=== PATIENT | male | born 1940 | race Caucasian/White ===

== ENCOUNTER 2018-03-27 21:01 | Emergency (ER) | payer MEDICARE, OTHER ==
--- NOTE | 2018-03-27 21:16 | ED ---
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 Pt states he was clearing weeds and encountered a hornets nest. The patient rates the pain 7/10 in severity. Symptoms aggravated by nothing. Symptoms alleviated by nothing. Patient reports pain to back of hands and nausea. Patient denies dyspnea. Patient denies a history of allergic reactions to bee stings. - History of Current Complaint Chief Complaint: EDAllergicReaction Time Seen by Provider: 03/27/18 21:04 Hx Obtained From: Patient Onset/Duration: Sudden Onset, Started hours ago, Still Present Timing: Constant Severity Initially: Moderate Severity Currently: Moderate Pain Intensity: 7 Pain Scale Used: 0-10 Numeric Location: Discrete @ - Bilateral hands Character: Pain Aggravating Factor(s): Nothing Alleviating Factor(s): Nothing Associated Signs And Symptoms: Positive: Other: - Copy pain to back of hands and nausea. Negative dyspnea - Allergies/Home Medications Allergies/Adverse Reactions: Allergies Allergy/AdvReac Type Severity Reaction Status Date / Time MS Acetaminophen Allergy Nausea Verified 09/23/17 11:50 [From Vicodin] MS Codeine [Codeine] Allergy Nausea Verified 09/23/17 11:50 MS Hydrocodone [From Vicodin] Allergy Nausea Verified 09/23/17 11:50 MS Meperidine Allergy Nausea Verified 09/23/17 11:50 [From Demerol HCl] PMH/Surg Hx/FS Hx/Imm Hx Previously Healthy: No Endocrine/Hematology History: Denies: Hx Diabetes Cardiovascular History: Reports: Hx Coronary Artery Disease, Hx Hypertension - CONTROL WITH MEDS, Hx Rheumatic Fever - A CHILD, Other Cardiovascular Problems/Disorders - CHOLESTEROL CONTROL WITH MEDICATION Denies: Hx Pacemaker/ICD GI History: Reports: Hx Gastroesophageal Reflux Disease - CONTROL WITH MEDS History: Reports: Hx Kidney Stones - HX - PASSED Denies: Hx Renal Disease Musculoskeletal History: Reports: Hx Arthritis, Hx Rheumatoid Arthritis Sensory History: Reports: Hx Contacts or Glasses - GLASSES Denies: Hx Hearing Aid Opthamlomology History: Reports: Hx Contacts or Glasses - GLASSES Neurological History: Reports: Other Neuro Impairments/Disorders - XANAX PRIOR TO PROCEDURES FOR ANXIETY Psychiatric History: Reports: Hx Anxiety Denies: Hx Panic Disorder - Cancer History Cancer Type, 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 1951 BONE AND CYST REMOVAL BILATERAL FEMURS,. 1961 RIGHT HIP REPLACEMENT AND MULTIPLE RIGHT HIPS SURGERIES DUE TO STAPH INFECTION, [place]. 1979 LEFT HIP REPLACEMENT, [place]. 1982, 1986 RIGHT HIP REVISIONS, [place]. 1987 LEFT HIP REVISION, [place]. 2005 MELANOMA REMOVED FROM BACK, X 2, [facility]. 2006 MELANOMA REMOVED FROM LEFT SIDE OF FACE, [facility]. 2011 RIGHT HIP RECONSTRUCTION, [facility]. 2011 LEFT WRIST CARPAL NATHANAEL Hx Anesthesia Reactions: No Infectious Disease History: No Infectious Disease History: Denies: Traveled Outside the [place] in Last 30 Days - Family History Known Family History: Positive: Other - Negative anesthesia reaction - Social History Occupation: Retired Lives: With Family Alcohol Use: Daily Alcohol Amount: 1-2 GLASSES OF WINE DAILY Hx Substance Use: No Substance Use Type: Reports: None Hx Tobacco Use: No Smoking Status (MU): Never Smoked Tobacco Review of Systems Positive: Other - Negative dyspnea Positive: Nausea Positive: Other - Positive pain on the back of bilateral hands All Other Systems Reviewed And Are Negative: Yes Physical Exam - Summary Physical Exam Summary: Appearance: Well-appearing, Well-nourished, lying in bed comfortably Skin: Warm, dry. Erythema on the R forearm consistent with insect stings. Nothing obvious on the L forearm. Eyes: sclera anicteric, no conjunctival pallor ENT: mucous membranes moist, pharynx appears normal Neck: Supple, nontender Respiratory: Clear to auscultation, no signs of respiratory distress Cardiovascular: Normal S1, S2. No murmurs. Normal distal pulses in tibial and radial bilaterally. Abdomen: Soft, nontender, normal active bowel sounds present Musculoskeletal: Normal, Strength/ROM Intact Neurological: A&Ox3, awake and alert, mentation is normal, speech is fluent and appropriate Psychiatric: affect is normal, does not appear anxious or depressed Triage Information Reviewed: Yes Vital Signs On Initial Exam: Initial Vitals Temp Pulse Resp BP Pulse Ox 99.8 F 80 18 160/93 94 03/27/18 21:04 03/27/18 21:04 03/27/18 21:04 03/27/18 21:04 03/27/18 21:04 Vital Signs Reviewed: Yes Diagnostics - Vital Signs Vital Signs Temp Pulse Resp BP Pulse Ox 08/30/18 21:04 99.8 F 80 18 160/93 94 - Laboratory Lab Statement: Any lab studies that have been ordered have been reviewed, and results considered in the medical decision making process. - Additional Comments Diagnostic Additional Comments: An EKG taken at 2144 reveals NSR at 79BPM, P waves, QRS complex, and T waves are within normal limits, T waves and intervals are normal, no ischemic changes. This is a normal EKG Re-Evaluation - Re-Evaluation First Eval Re-Evaluation Time: 22:10 Change: Unchanged Comment: Discussed results and plan of care with pt Second Eval Re-Evaluation Time: 22:14 Change: Unchanged Comment: Patient is still complaining of pain in the right hand, where he apparently was stung the most. He has had topical lidocaine on the hand for about 10 minutes without much change. We'll continue to monitor. He did have a short bout of tachycardia associated with when he describes as a panic attack , but by the time we got a cardiogram his heart rate come back down to normal. The significance of this is unclear. Allergic Reaction Course/Dx - Diagnoses Provider Diagnoses: Bee sting reaction Discharge - Sign-Out/Discharge Documenting (check all that apply): Patient Departure - Discharge Plan Condition: Good Disposition: HOME Patient Education Materials: Insect Bite or Sting (ED) Referrals: Martita Davison MD [Primary Care Provider] - If Needed - Billing Disposition and Condition Condition: GOOD Disposition: Home - Attestation Statements Document Initiated by Scribe: Yes Documenting Scribe: Alondra Crane Provider For Whom Rebel is Documenting (Include Credential): Petros Foreman MD Scribe Attestation: I, Alondra Crane, scribed for Petros Foreman MD on 03/28/18 at 2316. Scribe Documentation Reviewed: Yes Provider Attestation: The documentation as recorded by the agustínibeAlondra accurately reflects the service I personally performed and the decisions made by me, Petros Foreman MD
[2018-03-27] MEDS ORDERED: Lidocaine 4% TOPICAL* 50 ML TOP.SOLN TOPICAL ONE (21:30)
[2018-03-27] MEDS ORDERED: Morphine VIAL* 4 MG/ML VIAL (1 ml vial) IV ONE (22:42)
[2018-03-27] MEDS ORDERED: Morphine VIAL* 10 MG/ML 1 ML VIAL ONE (22:45)
[2018-03-28] MEDS ORDERED: Methadone TAB* 10 MG PO ONE (00:41)
[2018-03-28 02:25] VITALS: BP 168/91
== END 2018-03-28 02:24 | disposition home or self-care (01) ==
LOC: ED 21:01
DX: T63.441A Toxic effect of venom of bees, accidental (unintentional), initial encounter (principal); Y92.9 Unspecified place or not applicable; K21.9 Gastro-esophageal reflux disease without esophagitis; I25.10 Atherosclerotic heart disease of native coronary artery without angina pectoris; I10 Essential (primary) hypertension; Z88.8 Allergy status to other drugs, medicaments and biological substances; Z88.5 Allergy status to narcotic agent; Z88.6 Allergy status to analgesic agent
CPT/HCPCS: 96374; 99283; A9270-GY; J2270

== ENCOUNTER 2019-07-04 11:53 | Inpatient (IN) | payer MEDICARE, BC ==
--- NOTE | 2019-07-04 12:00 | ED ---
HPI Chest Pain - HPI Summary HPI Summary: This patient is an 78 year old male with a Hx of CAD and SC brought in by EMS presenting to [facility] with a chief complaint of chest pain. He states he was watching TV about an hour ago when he started to feel a burning pain. He has experienced this kind of pain before and was usually able to resolve the pain with antacids, however after taking them this time it they did not provide relief. The patient then found old nitroglycerin and took 3 of them, which he states worked to relieve the pain. EMS states he was hypertensive with a systolic > 200, even after taking the nitroglycerin. 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 He states his last SC was 15 year ago and they did not place any stents. He denies SOB. He currently takes medication for hypertension. States pain feels similar to prior SC. - History of Current Complaint Time Seen by Provider: 07/04/19 11:54 Hx Obtained From: Patient Onset/Duration: Started Hours Ago Timing: Lasting Minutes Associated Signs and Symptoms: Positive: Chest Pain - Allergy/Home Medications Allergies/Adverse Reactions: Allergies Allergy/AdvReac Type Severity Reaction Status Date / Time codeine AdvReac Vomiting Verified 07/04/19 11:59 hydrocodone [From Vicodin] AdvReac Vomiting Verified 07/04/19 11:59 meperidine [From Demerol] AdvReac Vomiting Verified 07/04/19 11:59 Home Medications: Home Medications L.acidoph,Paracasei, B.lactis [Probiotic] 1 each PO DAILY 07/04/19 [History Confirmed 07/04/19] Lutein/Zeaxanthin [Ocuvite Lutein 25 25-5 mg] 1 cap PO DAILY 07/04/19 [History Confirmed 07/04/19] Hyannis-3/Dha/Epa/Fish Oil [Fish Oil 1,000 mg Softgel] 1,000 mg PO DAILY 07/04/19 [History Confirmed 07/04/19] PMH/Surg Hx/FS Hx/Imm Hx Endocrine/Hematology History: Denies: Hx Diabetes Cardiovascular History: Reports: Hx Coronary Artery Disease, Hx Hypertension - CONTROL WITH MEDS, Hx Rheumatic Fever - A CHILD, Other Cardiovascular Problems/Disorders - CHOLESTEROL CONTROL WITH MEDICATION Denies: Hx Pacemaker/ICD GI History: Reports: Hx Gastroesophageal Reflux Disease - CONTROL WITH MEDS History: Reports: Hx Kidney Stones - HX - PASSED Denies: Hx Renal Disease Musculoskeletal History: Reports: Hx Arthritis, Hx Rheumatoid Arthritis Sensory History: Reports: Hx Contacts or Glasses - GLASSES Denies: Hx Hearing Aid Opthamlomology History: Reports: Hx Contacts or Glasses - GLASSES Neurological History: Reports: Other Neuro Impairments/Disorders - XANAX PRIOR TO PROCEDURES FOR ANXIETY Psychiatric History: Reports: Hx Anxiety Denies: Hx Panic Disorder - Cancer History Cancer Type, 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 1951 BONE AND CYST REMOVAL BILATERAL FEMURS,. 1961 RIGHT HIP REPLACEMENT AND MULTIPLE RIGHT HIPS SURGERIES DUE TO STAPH INFECTION, [place]. 1979 LEFT HIP REPLACEMENT, [place]. 1982, 1986 RIGHT HIP REVISIONS, [place]. 1987 LEFT HIP REVISION, [place]. 2006 MELANOMA REMOVED FROM BACK, X 2, [facility]. 2006 MELANOMA REMOVED FROM LEFT SIDE OF FACE, [facility]. 2011 RIGHT HIP RECONSTRUCTION, [facility]. 2011 LEFT WRIST CARPAL NATHANAEL Hx Anesthesia Reactions: No - Family History Known Family History: Positive: Other - Negative anesthesia reaction - Social History Alcohol Use: Daily Alcohol Amount: 1-2 GLASSES OF WINE DAILY Hx Substance Use: No Substance Use Type: Reports: None Hx Tobacco Use: No Smoking Status (MU): Never Smoked Tobacco Review of Systems Positive: Chest Pain Negative: Shortness Of Breath All Other Systems Reviewed And Are Negative: Yes Physical Exam - Summary Physical Exam Summary: Constitutional: Well-developed, Well-nourished, Alert. (-) Distressed Skin: Warm, Dry HENT: Normocephalic; Atraumatic Eyes: Conjunctiva normal Neck: Musculoskeletal ROM normal neck. (-) JVD, (-) Stridor, (-) Nuchal rigidity Cardio: Rhythm regular, rate normal, Heart sounds normal; Intact distal pulses; Radial pulses are 2+ and symmetric. (-) Murmur Pulmonary/Chest wall: Effort normal. (-) Respiratory distress, (-) Wheezes, (-) Rales Abd: Soft, (-) tenderness, (-) Distension, (-) Guarding, (-) Rebound Musculoskeletal: (-) Edema Lymph: (-) Cervical adenopathy Neuro: Alert, Oriented x3 Psych: Mood and affect Normal Triage Information Reviewed: Yes Vital Signs On Initial Exam: Temp Pulse Resp BP Pulse Ox 98.5 F 83 16 181/113 96 07/04/19 11:54 07/04/19 11:54 07/04/19 11:54 07/04/19 11:54 07/04/19 11:54 Vital Signs Reviewed: Yes Procedures - Sedation Patient Received Moderate/Deep Sedation with Procedure: No Diagnostics - Laboratory Result Diagrams: 07/04/19 17:00 07/04/19 17:00 Lab Statement: Any lab studies that have been ordered have been reviewed, and results considered in the medical decision making process. - Radiology CXR Radiology Interpretation Completed By: Radiologist Summary of Radiographic Findings: No acute cardiopulmonary process by radiograph. ED Provider has reviewed this report. - EKG 1153 Cardiac Rate: NL - 77 BPM EKG Rhythm: Sinus Rhythm Summary of EKG Findings: T-wave inversions in III and V1. Peaked T-waves in V3. No significant change since 03/27/18. ED Physician has reviewed and interpreted this report. 1323 Cardiac Rate: NL EKG Rhythm: Sinus Rhythm - 72 BPM Summary of EKG Findings: T-wave inversions in III, peaked T-waves in V2, V3. ED Physician has reviewed and interpreted this report. Chest Pain Course/Dx - Course Course Of Treatment: 78 y/o male w hx CAD, SC p/w CP. - PE w well appearing male, VS notable for HTN. - Chest Pain DDX: Given the patient's clinical presentation, highest on differential is ACS - peak T waves in anterior leads, elevated troponin 0.05. Status post aspirin. Pain improved w nitroglycerin. Although less likely, differential also includes the following: --Pneumothorax : Equal breath sounds, story inconsistent since gradual onset of symptoms. CXR shows no evidence of pneumothorax. Unlikely. --Cardiac tamponade: The history and physical are not concerning for tamponade. No Pulsus Paradoxus, no tachypnea. Unlikely. --Mediastinitis or esophageal rupture: The history is not consistent, as the patient has had no recent history of significant wretching, instrumentation, or mediastinal surgeries. Unlikely. --Aortic dissection: The patient does not describe the classical tearing chest pain radiating into the back, and the CXR does not show mediastinal widening or other signs of aortic dissection. Unlikely. --PE: Vitals wnl (not hypoxic, tachycardic or tachypneic) . - Diagnoses Provider Diagnoses: Chest pain Discharge ED - Sign-Out/Discharge Documenting (check all that apply): Patient Departure - Admission, accepted by Dr. Portillo - Discharge Plan Condition: Stable Disposition: ADMITTED TO [facility] - Billing Disposition and Condition Condition: STABLE Disposition: Admitted to [facility] - Attestation Statements Document Initiated by Scribe: Yes Documenting Scribe: Mark Thomas Provider For Whom Rebel is Documenting (Include Credential): Cole Guajardo MD Scribe Attestation: Mark Canchola, scribed for Cole Guajardo MD on 07/04/19 at 2000. Scribe Documentation Reviewed: Yes Provider Attestation: The documentation as recorded by the Mark shaver accurately reflects the service I personally performed and the decisions made by Cole jimenes MD Status of Scribe Document: Viewed
[2019-07-04 12:12] LABS: ABS Basophils 0.1 10^3/ul (0-0.2); ABS Eosinophils 0.2 10^3/ul (0-0.6); ABS Lymphocytes 3.3 10^3/ul (1.0-4.8); ABS Monocytes 1.1 10^3/ul (0-0.8); ABS Neutrophils 5.2 10^3/ul (1.5-7.7); Eosinophil % 2.1 %; Hematocrit 44 % (42-52); Hemoglobin 15.3 g/dL (14.0-18.0); Lymphocyte % 33.5 %; Mean Corpuscular HGB Conc 35 g/dL (31-36); Mean Corpuscular Hemoglobin 30 pg (27-31); Mean Corpuscular Volume 87 fL (80-94); Mean Platelet Volume 8.6 fL (7.4-10.4); Platelet Count 224 10^3/uL (150-450); Red Blood Count 5.11 10^6 /uL (4.18-5.48); Red Cell Distribution Width 15 % (10-15); White Blood Count 9.9 10^3/uL (3.5-10.8)
[2019-07-04 12:27] LABS: ALT 14 U/L (7-52); AST 16 U/L (13-39); Albumin 4.3 g/dL (3.2-5.2); Albumin/Globulin Ratio 1.7 (1-3); Alkaline Phosphatase 139 U/L (34-104); Anion Gap 8 mmol/L (2-11); Blood Urea Nitrogen 24 mg/dL (6-24); CO2 Carbon Dioxide 33 mmol/L (22-32); Chloride 102 mmol/L (101-111); EGFR African American 112.5 (>60); Globulin 2.5 g/dL (2-4); Glucose 103 mg/dL (70-100); Potassium 3.6 mmol/L (3.5-5.0); Sodium 143 mmol/L (135-145); Total Protein 6.8 g/dL (6.4-8.9)
[2019-07-04 12:57] LABS: Troponin I 0.05 ng/mL (<0.03)
[2019-07-04] MEDS ORDERED: Labetalol IV* 5 MG/ML 20 ML VIAL IV PUSH ONE (13:06)
--- OUTSIDE RECORDS SUMMARY | 2019-07-04 13:13 | XMS REPORT | Continuity of Care Document ---
:1940 External Reference #:[id number] Author Name Jeb Rubalcava M.D. Address [address] [place] [address] Care Team Providers Name Role Phone Martita Davison M.D. - Internal Medicine Care Team Information Fitness Management Director [phone] Problems Active Problems Provider Date Essential hypertension Onset: Pure hypercholesterolemia Onset: Anxiety Onset: Ankylosing spondylitis Onset: Nonexudative age-related macular Lalito Arango M.D. Onset: 02/10/2015 degeneration Nuclear senile cataract Lalito Arango M.D. Onset: 02/10/2015 Exudative age-related macular degeneration Kandace Munoz O.D. Onset: 2014 Primary open angle glaucoma of right eye Lalito Arango M.D. Onset: 2017 Age-related exudative macular degeneration Lalito Arango M.D. Onset: 04/22 of right eye Heart failure Jeb Rubalcava M.D. Onset: 12/24/2018 Social History Type Date Description Comments Sex Unknown ETOH Use Consumes 2 glasses of wine per day Tobacco Use Start: Unknown Patient has never smoked Recreational Drug Use Never Used Drugs Smoking Status Reviewed: 06/30/19 Patient has never smoked Allergies, Adverse Reactions, Alerts Active Allergies Reaction Severity Comments Date Demerol 02/10/2015 Codeine 02/10/2015 Vicodin 04/22/2018 Medications Active Medications SIG Qnty Indications Ordering Date Provider Artificial Tears as needed Jeb 03/30/2019 1-0.3% Dacia Rubalcava Solution Methadone HCL Take 1 Tablet By Unknown 10mg Tablets Mouth Twice A Day And Twice A Day as Needed Pantoprazole Sodium Unknown 40mg Tablets DR Urbanoorperazine insert 1 Unknown 25mg suppository Suppository rectally every 12 hours Atenolol take 1/2 tablet Unknown 25mg Tablets daily Procardia Unknown 10mg Capsules Aspirin Adult Low Dose Unknown 81mg Tablets DR Ruff Unknown 10mg Capsules Nitroglycerin ER Unknown 2.5mg Capsules ER Iron Unknown 28mg Tablets Pravastatin Sodium Davison, Martita 40mg M.D. Tablets Buspirone HCL Davison, Martita 7.5mg Tablets M.D. Nifedipine ER Osmotic Davison, Martita Release M.D. 30mg Tablets ER 24HR Alprazolam take 1 tablet by Unknown 0.25mg Tablets mouth three times a day if needed Narcan Unknown 4mg/0.1ML Liquid Clobetasol Propionate Unknown 0.05% Ointment Medications Administered in Office Medication SIG Qnty Indications Ordering Provider Date Unclassified Biologics, I.E. Pako Haddad M.D. 06/18/2011 Avastin Injection Unclassified Biologics, I.EAnders Haddad M.D. 05/18/2011 Avastin Injection Unclassified Biologics, I.EAnders Haddad M.D. 04/18/2011 Avastin Injection Immunizations Description No Information Available Vital Signs Description No Information Available Results Description No Information Available Procedures Date Code Description Status 03/31/2019 78197 Est Patient Intermediate Exam Completed 03/18/2019 60687 Patient No Show For Appt Completed 02/03/2019 90439 Scanning Computerized Opthalmic Diagnostic Posterior Seg Completed Retina 02/03/2019 93152 Est Patient Comprehensive Exam Completed Medical Devices Description No Information Available Encounters Description No Information Available Assessments Date Code Description Provider 06/30/2019 H40.1113 Primary open-angle glaucoma, right eye, Jeb Rubalcava M.D. severe stage 06/30/2019 H35.3212 Exudative age-related macular Jeb Rubalcava M.D. degeneration, right eye, with 03/31/2019 H40.1113 Primary open-angle glaucoma, right eye, Jeb Rubalcava M.D. severe stage 02/03/2019 H40.1113 Primary open-angle glaucoma, right eye, Jeb Rubalcava M.D. severe stage 02/03/2019 H35.3212 Exudative age-related macular Jeb Rubalcava M.D. degeneration, right eye, with 02/03/2019 H25.12 Age-related nuclear cataract, left eye Jeb Rubalcava M.D. Plan of Treatment 06/30/2019 - Jeb Rubalcava M.D.H40.1113 Primary open-angle glaucoma, right eye, severe stageComments:Smoking can increase the risk of developing or worsening any eye related disease, as well as affect your overall health. If you are a smoker, we strongly recommend that you quit.If you are not a smoker, we strongly recommend that you do not start. Your Glaucoma is stable at this time in your right eye. Your eye pressure is within an acceptable range, and your testing does not show any further deterioration at this time. Please continue your treatment as directed and keep follow up appointments.Follow up:3 Month Follow Up IOP CHECK At your next visit, we are not planning to dilate your eyes. However, if you have any changes in your vision or new symptoms, there are certain situations that require us to dilate your eyes. If Dr. Rubalcava requests any additional testing, that may require extra time. If you have any questions before your next appointment, please call our office at .H35.3212 Exudative age-related macular degeneration, right eye, withComments:The wet Macular Degeneration in your right eye appears to be inactive at this time. Continue to monitor your vision, with each eye separately. Use your Amsler Grid and continue taking the AREDS 2 Formula Vitamins. If you notice any changes in your vision before your next appointment , please call the office at to schedule an appointment.Follow up: Functional Status Description No Information Available Mental Status Description No Information Available Referrals Description No Information Available
[2019-07-04] MEDS ORDERED: hydrALAZINE IV* 20 MG/ML VIAL IV SLOW PU ONE (14:29)
[2019-07-04] MEDS ORDERED: Acetaminophen TAB* 325 MG PO PRN (14:48)
[2019-07-04] MEDS ORDERED: Ondansetron INJ* 2 MG/ML VIAL IV PRN (14:48)
[2019-07-04] MEDS ORDERED: Atenolol TAB* 25 MG PO ONE (15:55)
[2019-07-04] MEDS ORDERED: Clobetasol 0.05% OINT* 30 GM TUBE TOPICAL PRN (15:56)
[2019-07-04 16:33] LABS: Troponin I 0.05 ng/mL (<0.03)
[2019-07-04] MEDS: Methadone TAB* 10 MG PO PRN (16:39)
[2019-07-04] MEDS ORDERED: Heparin VIAL(*) 5000 UNITS/ML VIAL (FIVE THOUSAND) IV SCH (17:00)
[2019-07-04 17:07] LABS: ABS Basophils 0.1 10^3/ul (0-0.2); ABS Eosinophils 0.1 10^3/ul (0-0.6); ABS Lymphocytes 1.7 10^3/ul (1.0-4.8); ABS Monocytes 1.1 10^3/ul (0-0.8); Eosinophil % 0.5 %; Hematocrit 44 % (42-52); Lymphocyte % 15.9 %; Mean Corpuscular HGB Conc 34 g/dL (31-36); Mean Corpuscular Hemoglobin 30 pg (27-31); Mean Corpuscular Volume 87 fL (80-94); Mean Platelet Volume 8.3 fL (7.4-10.4); Platelet Count 231 10^3/uL (150-450); Red Blood Count 5.08 10^6 /uL (4.18-5.48); Red Cell Distribution Width 15 % (10-15)
[2019-07-04] MEDS: ALPRAZolam TAB* 0.25 MG PO PRN (17:17)
[2019-07-04 17:29] LABS: EGFR African American 110.9 (>60); EGFR Non-African American 91.7 (>60)
[2019-07-04] MEDS: Heparin DRIP 25,000 UNITS(*) 25,000 UNITS/500 ML BAG IV SCH (17:57)
[2019-07-04] MEDS: Pantoprazole TAB * 40 MG TAB PO SCH (17:59)
[2019-07-04 19:16] LABS: Magnesium 1.8 mg/dL (1.9-2.7)
[2019-07-04 19:16] LABS: Troponin I 0.07 ng/mL (<0.03)
--- NOTE | 2019-07-04 20:36 | HP ---
CC: Dr. Martita Davison * MEDICINE HISTORY AND PHYSICAL: DATE OF ADMISSION: 07/04/19 PROVIDER: Rocío Llanes NP ATTENDING PHYSICIAN: Dr. Zunilda Portillo * (dictated by Rocío Llanes NP). PRIMARY CARE PROVIDER: Dr. Martita Davison. CONSULTING BIOMETRICS SPECIALIST: Dr. Sanchez Garrison. CHIEF COMPLAINT: Chest pain. HISTORY OF PRESENT ILLNESS: Mr. Mehta is an 78-year-old gentleman who was brought in by EMS services today after experiencing chest pain at home. He reports around 7 a.m. this morning he was watching television, he started to notice a kind pain in the center of his chest that he described as the feeling the same as "gas pain." He states that he took about 6 to 8 tablets of antacid pills and then noted that this was not working for relieving the pain. He then took a nitroglycerin. After taking the nitroglycerin, he realized that this was out of an older bottle that may have been . He waited approximately 15 minutes and then took a fresh nitroglycerin tablet from one of his newer bottles. At this point, he started to notice some pain that he qualifies as mild in his bilateral jaw. He called EMS services. He did receive aspirin in the ambulance and states that as he was en route to the hospital his pain subsided. Currently, he describes having no pain in his chest. Over the last couple of weeks, he does state that he has been having more recurrent gas pains both at rest and with activity. He states that he usually takes 2 to 4 antacid pills for the pains. He noted more gas pain when he was lying down, but now is unsure if this is gas pain or if this is chest pain. Prior to this, he states that he has not had taken nitroglycerin pill in over a year. He also reports that he has had associated symptoms of nausea. Here in the ER, he was noted to be significantly hypertensive and has received IV labetalol. When he was in the ambulance, he reports that his systolic blood pressure was over 200. He does state at home that his blood pressure has been trending up, although he cannot recall what any of the values are. He states that he has been working on regulating this with his PCP. His troponin on first check at 1203 was 0.05 and there was a concern for peak T waves and V2 and V3 on his EKG. This is unclear if this is due to ischemia or possibly LVH given his hypertension. In any event given his presentation and symptom, Hospital Medicine was consulted for admission. PAST MEDICAL HISTORY: 1. He reports coronary artery disease with a history of an PA 15 years ago. He states that at that time the vessel was too small to be stented and so he was medically managed. 2. Hypertension. 3. Ankylosing spondylitis with chronic pain. 4. Nephrolithiasis. 5. Hypercholesterolemia. 6. GERD. 7. Depression. 8. Anxiety. 9. Macular degeneration. 10. Melanoma with multiple excisions. PAST SURGICAL HISTORY: He reports that he has had surgical correction of glaucoma and cataract extraction. He has had 9 hip replacements and reports that his right lower extremity is 3 inches shorter than his left lower extremity. HOME MEDICATIONS: This list was obtained from the list that the patient brought in from home. 1. Fish oil 1000 mg daily. 2. Probiotic 1 tab daily. 3. Ocuvite 1 cap daily. 4. Clobetasol 0.05% topical t.i.d. p.r.n. 5. Xanax 0.25 mg t.i.d. p.r.n. 6. Nitroglycerin 0.4 mg sublingual q.5 minutes p.r.n. 7. Nifedipine XL 30 mg b.i.d. 8. Pravastatin 40 mg at bedtime. 9. Piroxicam 20 mg q.a.m. 10. Pantoprazole 40 mg q.p.m. 11. Methadone 10 mg 4 times a day p.r.n. 12. Atenolol 25 mg q.p.m. 13. Aspirin 81 mg q.a.m. ALLERGIES: Include CODEINE, HYDROCODONE, and MEPERIDINE. FAMILY HISTORY: He reports that his father of intestinal cancer and his mother of old age, but had oral cancer. SOCIAL HISTORY: He denies any history of smoking. He reports that he has a glass of wine most evenings. He denies any history of drug use. 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 He is and he lists his , Latanya Mehta, as his surrogate decision maker in the event of emergency. REVIEW OF SYSTEMS: A 14-point review of systems was reviewed with the patient. He does deny orthopnea or shortness of breath at home. He denies any recent weight gain, excessive leg swelling, or palpitations. He does again address the chest pain. Denies any shortness of breath, cough, cold, or flu symptoms. Denies abdominal pain, vomiting or diarrhea, but did have some nausea earlier today. He reports urinary frequency for which he follows with Urology, but denies any dysuria or hematuria. Denies any focal weakness or sensory loss, new visual complaints, hearing complaints, or dysphagia. Denies any new joint pains or muscle pains, but has chronic pain at baseline in multiple joints including hips, knees, wrists, and back secondary to ankylosing spondylitis. Skin: He has ecchymotic areas to the arms, which are chronic secondary to aspirin use and he does endorse depression and anxiety. PHYSICAL EXAMINATION GENERAL: This is an older gentleman seen lying in the ED stretcher, in no acute distress. He is alert, oriented x3, and conversive and pleasant. VITAL SIGNS: Temperature 97.9, heart rate 80, respiratory rate 20, blood pressure 169/102, and O2 saturation 95% on room air. HEENT: Head is atraumatic, normocephalic. Pupils are equal, round, and reactive to light. Extraocular movements are intact. Oral mucosa is moist. NECK: Supple with normal range of motion. No JVD noted. No carotid bruits auscultated. No lymphadenopathy appreciated. LUNGS: Clear to auscultation bilaterally. No wheezes, rales, or rhonchi noted. CARDIAC: No chest pain with palpation. Regular rate and rhythm. Normal S1, S2 heart sounds. No murmur appreciated. Distal pulses are intact and symmetric in the radial and pedal sites. There is some mild pretibial edema that is trace to the bilateral lower extremities. ABDOMEN: Soft, nontender, nondistended with normoactive bowel sounds. No guarding or rebound tenderness. No CVA tenderness noted. MUSCULOSKELETAL: No clubbing or cyanosis noted. NEUROLOGIC: Again, he is alert and oriented. No focal deficits noted. Cranial nerves II through XII are grossly intact. He moves all extremities equally. Sensation is intact to light touch. SKIN: With scattered ecchymotic areas noted primarily to the upper extremities. DIAGNOSTIC STUDIES/LAB DATA: CBC: WBC 9.9, hemoglobin 15.3, hematocrit 44, platelet count 224. CMP: Sodium 143, potassium 3.6, chloride 102, carbon dioxide 33, BUN 24, creatinine 0.80, glucose 103, calcium 11.0. Total bilirubin 0.6, AST 16, ALT 14, alk phos 139. Troponin 0.05. Chest x-ray shows no acute cardiopulmonary process. EKG with T-wave inversions in III and V1 with peak T waves in V2 and V3. Old medical records were reviewed. ASSESSMENT AND PLAN: This is an 78-year-old male with known coronary artery disease, hypertension, ankylosing spondylitis, gastroesophageal reflux disease, hypercholesterolemia, depression, and anxiety who presents today with concern for chest pain and EKG changes. He will be admitted to the telemetry floor for further monitoring. Plan is as follows: 1. Chest pain, rule out acute coronary syndrome. He is currently chest pain free. I did run the case by Dr. Garrison given his EKG changes and the concern for the peak T waves in V2 and V3 which was also reviewed with my attending. Dr. Garrison agreed to see the patient in consult and recommend starting him on a heparin drip, which has been ordered. We will continue to trend his troponins. His second troponin is also 0.05 and so we will obtain a third troponin. I have also ordered an echocardiogram, and we will continue to monitor with a goal keeping him chest pain free. We will work on appropriate blood pressure control, which is coming down after IV interventions of hydralazine and labetalol. He is on home atenolol and nifedipine which will be continued. He is on a lower dose of atenolol 25 mg and so we will give him an additional dose today to bump him up to 50 mg daily and monitor his pressure and heart rate. Recheck lipid profile. He is currently on pravastatin, which will be substituted with atorvastatin while he is here at [facility]. 2. Hypertension. Again, the patient is hypertensive, although it is starting to improve with IV and oral medications. We will continue to monitor this and adjust medications accordingly. 3. Hypercalcemia. I suspect that this is secondary to exogenous sources as he reports excessive antacid use, including 6-8 tablets this morning. We will recheck tomorrow along with an ionized calcium. I will hold off on fluids at this time given his blood pressure and trend calcium again tomorrow. 4. Chronic pain secondary to ankylosing spondylitis. Continue home regimen which includes methadone. Given the start of this and heparin drip, I will hold his piroxicam. 5. Depression and anxiety. Continue p.r.n. Xanax. 6. Gastroesophageal reflux disease. Continue Protonix. 7. Hypercholesterolemia. Continue fish oil and statin. 8. Macular degeneration. Continue Ocuvite. 9. FEN. He is ordered a heart-healthy diet. 10. DVT prophylaxis. He will be on a heparin drip. 11. Code status. I did address this with Mr. Mehta and we sat down for approximately 10 minutes and reviewed the MOLST form. He was able to verbalize understanding of the form and has indicated that he would like to be a DNR and has also indicated that he would be open to trial intubation and trial mechanical ventilation. The MOLST form was completed and signed on admission. TIME SPENT: Approximately 65 minutes was spent on this admission with greater than half that time spent [id number] with the patient obtaining history and physical, performing physical examination, and reviewing the plan of care. Plan of care was also reviewed with my attending, Dr. Portillo, who is in agreement. ROCÍO LLANES, SHAMIKA [id number]/CPS #: [id number] DEVIN
[2019-07-04] MEDS ORDERED: Potassium Chlor TAB* 20 MEQ TAB.ER PO ONE (20:38)
[2019-07-04] MEDS ORDERED: Magnesium Sulfate 2 GM IV* 2 GM/50 ML BAG IVPB ONE (20:38)
[2019-07-04] MEDS ORDERED: Atenolol TAB* 25 MG PO SCH (21:20)
--- NOTE | 2019-07-04 21:33 | PN ---
Hospitalist Progress Note Date of Service: 07/04/19 Received report later in the evening from ER nurse that patient had HR in 190s that appeared to be SVT rhythm on monitor. Unable to find rhythm strip but Dr. Guajardo confirmed SVT that resolved with vagal maneuvers. K+ and Mg+ checked - will replete. Heparin gtt started per cardiology recommendations given peaked T waves in anterior leads and trop 0.05. Continue to trend until peak. Patient denies CP. Check echocardiogram tomorrow.
[2019-07-04] MEDS ORDERED: Heparin VIAL(*) 5000 UNITS/ML VIAL (FIVE THOUSAND) SUBCUT SCH (22:00)
[2019-07-04] MEDS: Atorvastatin* 10 MG TAB PO SCH (22:01)
[2019-07-04] MEDS: NIFEdipine ER TAB* 30 MG PO SCH (22:02)
[2019-07-04 22:47] LABS: Troponin I 0.08 ng/mL (<0.03)
[2019-07-04] MEDS ORDERED: Nitroglycerin TAB 0.3 MG* 0.3 MG TAB SL PRN (23:13)
[2019-07-04] MEDS ORDERED: Simethicone TAB* 80 MG TAB.CHEW PO PRN (23:14)
[2019-07-05 00:54] LABS: Troponin I 0.07 ng/mL (<0.03)
[2019-07-05 06:20] LABS: ABS Eosinophils 0.2 10^3/ul (0-0.6); ABS Lymphocytes 2.1 10^3/ul (1.0-4.8); ABS Monocytes 0.8 10^3/ul (0-0.8); ABS Neutrophils 3.9 10^3/ul (1.5-7.7); Eosinophil % 2.6 %; Hematocrit 42 % (42-52); Lymphocyte % 30.3 %; Mean Corpuscular HGB Conc 33 g/dL (31-36); Mean Corpuscular Hemoglobin 29 pg (27-31); Mean Corpuscular Volume 88 fL (80-94); Mean Platelet Volume 8.3 fL (7.4-10.4); Nucleated Red Blood Cells % 0.1; Platelet Count 208 10^3/uL (150-450); Red Blood Count 4.79 10^6 /uL (4.18-5.48); Red Cell Distribution Width 16 % (10-15); White Blood Count 7.1 10^3/uL (3.5-10.8)
[2019-07-05 06:37] LABS: BUN/Creatinine Ratio 25.6 (8-20); Calcium 9.6 mg/dL (8.6-10.3); EGFR African American 103.5 (>60); EGFR Non-African American 85.6 (>60); HDL Cholesterol 62.9 mg/dL; Potassium 3.7 mmol/L (3.5-5.0)
[2019-07-05] MEDS: EPA PO SCH (07:40)
[2019-07-05] MEDS: DHA PO SCH (07:40)
[2019-07-05] MEDS: ZEAXANTHIN PO SCH (07:40)
[2019-07-05] MEDS: FISH OIL PO SCH (07:40)
[2019-07-05] MEDS: LUTEIN PO SCH (07:40)
[2019-07-05] MEDS: OMEGA PO SCH (07:40)
[2019-07-05] MEDS: NIFEdipine ER TAB* 30 MG PO SCH ×2 (07:41→21:13)
[2019-07-05] MEDS: Aspirin EC TAB* 81 MG TAB.EC PO SCH (07:41)
[2019-07-05] MEDS: ACIDOPH PARACASEI B LACTIS PO SCH (07:41)
[2019-07-05] MEDS: Methadone TAB* 10 MG PO PRN ×2 (07:42→14:41)
[2019-07-05] MEDS ORDERED: Piroxicam CAP* 20 MG PO SCH (09:00)
--- NOTE | 2019-07-05 11:52 | ECHO ---
*[facility]* [place] [address] Fax #: [phone] Transthoracic Echocardiogram Patient: Nik Mehta : 1940 Study Date: 07/05/2019 Age: 78 Gender: M HR: 62 bpm Height: 67 in /170.2 cm BSA: 1.91 m^2 Weight: 174.6 lb /79.4 kg BMI: 27.4 kg/m^2 *Customer Account Manager: * Lexy Vang RDCS RN *Referring Physician: * Ginette Flores *Reading Physician: * Sanchez Garrison MD Indications: Chest Pain, unspecified. History: Coronary artery disease with small OR 20 years ago. Ankylosing spondylitis. Risk factors: Hypertension. Conclusions Summary: - Left ventricle: Systolic function is normal. The estimated ejection fraction is 55-60%. Wall motion is normal; there are no regional wall motion abnormalities. - Mitral valve: There is trace to mild regurgitation. - Aortic valve: The findings are consistent with very mild stenosis. There is trace to mild regurgitation. The peak systolic velocity is 1.43 m/sec. The LVOT to aortic valve VTI ratio is 0.6. The valve area by the velocity-time integral method is 1.88 cm^2. The valve area by the peak velocity method is 2.13 cm^2. - Pulmonic valve: There is trace regurgitation. - Compared to study of 12/30/18, there is littl change. Study data: Transthoracic echocardiogram. Procedure: Transthoracic echocardiography was performed. Image quality was fair. Complete 2D, spectral Doppler, and color flow Doppler. Location: Bedside. Patient status: Observation. Patient room number: 441-02. Rhythm: Normal sinus rhythm. Findings Left ventricle: The cavity size is normal. Wall thickness is moderately increased. Systolic function is normal. The estimated ejection fraction is 55-60%. Wall motion is normal; there are no regional wall motion abnormalities. Doppler parameters are consistent with abnormal left ventricular relaxation (grade 1 diastolic dysfunction). Right ventricle: The cavity size is normal. Systolic function is normal. Left atrium: The atrium is mildly dilated. Right atrium: The atrium is normal in size. Mitral valve: The leaflets are mildly thickened. There is no evidence of stenosis. There is trace to mild regurgitation. Aortic valve: The valve is trileaflet. The leaflets are mildly thickened. The findings are consistent with very mild stenosis. There is trace to mild regurgitation. Tricuspid valve: The valve is structurally normal. There is no evidence of stenosis. There is trace regurgitation. Pulmonic valve: The valve is structurally normal. There is no evidence of stenosis. There is trace regurgitation. Aorta: Aortic root: The aortic root is not dilated. Ascending aorta: The ascending aorta is mildly dilated at 3.8 cm. Aortic arch: The aortic arch is not visualized. Pericardium: There is no significant pericardial effusion. Pulmonary arteries: The main pulmonary artery is normal-sized. Systemic veins: Inferior vena cava: Not visualized. Measurements Left ventricle Value Ref Right atrium Value Ref ED, LAX 4.2 cm 4.2 - 5.8 ML dim, ES, A4C 4.0 cm 2.6 - 4.4 ESD, LAX 2.9 cm 2.5 - 4.0 SI dim/bsa, ES, A4C 2.5 cm/m^2 1.8 - 3.0 FS, LAX 31 % 25 - 43 PW, ED, LAX (H) 1.5 cm 0.6 - 1.0 Aortic valve Value Ref PW, ED (H) 1.5 cm 0.6 - 1.0 Ashly diam, ED 2.0 cm --------- IVS/PW, ED 1.05 Peak v, S 1.43 m/sec --------- E', lat ashly, TDI (L) 3.5 cm/sec >=10.0 VTI, S 31.9 cm - -------- E/e', lat ashly, 22 Mean grad, S 5.0 mm Hg ---- ----- TDI Peak grad, S 8.0 mm Hg --------- E', med ashly, TDI (L) 4.6 cm/sec >=7.0 LVOT/AV, VTI ratio 0.6 - -------- E/e', med ashly, 17 LIDIA, VTI 1.88 cm^2 ---- ----- TDI LIDIA, Vmax 2.13 cm^2 --------- E', avg, TDI 4.1 cm/sec E/e', avg, TDI (H) 19 <=14 Mitral valve Value R ef Peak E 0.77 m/sec --------- LVOT Value Ref Peak A 1.09 m/sec --------- Diam, S 2.00 cm Decel time 236 ms --------- Area 3.1 cm^2 Peak grad, D 2.3 mm Hg --------- Peak lalo, S 0.97 m/sec Peak E/A ratio 0.7 --------- VTI, S 19.1 cm Mean grad, S 2 mm Hg Pulmonic valve Value Ref SV 60 ml Peak v, S 0.6 m/sec --------- SV/bsa 31 ml/m^2 Peak grad, S 1.0 mm Hg --------- Ventricular septum Value Ref Aortic root Value Ref IVS, ED (H) 1.6 cm 0.6 - 1.0 Root diam 2.9 cm <4.1 Right ventricle Value Ref Ascending aorta Value Ref ED minor ax, (H) 3.6 cm 1.9 - 3.5 AAo AP diam, S 3.8 cm --------- A4C mid AAo AP diam/bsa, S 2.0 cm/m^2 --------- Left atrium Value Ref AP dim, ES 3.80 cm 3.00 - 4.00 ML dim, A4C 4.3 cm SI dim, A4C 5.1 cm Vol/bsa, ES, 1-p 34 ml/m^2 12 - 37 A4C Vol/bsa, ES, A/L (H) 35 ml/m^2 16 - 34 Legend: (L) and (H) leo values outside specified reference range. Prepared and electronically signed by Sanchez Garrison MD 07/05/2019 11:52
--- NOTE | 2019-07-05 13:35 | CONS ---
CC: Dr. Martita Davison; Dr. Alfonso Gonzalez * CARDIOLOGY CONSULTATION REPORT: DATE OF CONSULT: 07/05/19 INDICATION FOR CONSULTATION: Coronary artery disease, positive troponin, chest pain. HISTORY OF PRESENT ILLNESS: The patient is an 78-year-old gentleman with a history of known coronary artery disease who came to the hospital because of chest pain. The patient states that yesterday morning he was at home watching television when he started developing gas pain. It radiated up into his chest. He took some antacid medications without relief. He took some nitroglycerin tablets and about 15 minutes later, his pain was resolving, but then decided to come to the emergency room. He called EMS services. On their arrival, he had minimal chest pain, but was given another sublingual nitroglycerin and when he arrived to the emergency room, he was pain-free. He was hypertensive when he came to the emergency room; his blood pressure was up over 200. He was given IV labetalol in the emergency room. His initial EKG showed normal sinus rhythm with somewhat peaked T waves in the anterior leads. His initial troponin level was 0.05. PAST MEDICAL HISTORY: Significant for coronary artery disease. He had a cardiac catheterization in 2001; at that time, he had a 90% stenosis of his distal left circumflex into his PDA. He had a left-sided PDA, but it was too small for intervention at that time. He had a 30% stenosis to his LAD. His right coronary artery was small and nondominant. Other past medical history is significant for hypertension, ankylosing spondylitis, kidney stones, gastroesophageal reflux disease, anxiety, and melanoma with multiple excisions. PAST SURGICAL HISTORY: Cataract surgery, hip replacement surgeries. OUTPATIENT MEDICATIONS: 1. Fish oil tablets 1000 mg a day. 2. Xanax as needed. 3. Nifedipine XL 30 mg b.i.d. 4. Pravastatin 40 mg a day. 5. Piroxicam 20 mg a day. 6. Pantoprazole 40 mg a day. 7. Methadone 10 mg 4 times a day as needed. 8. Atenolol 25 mg a day. 9. Aspirin 81 mg a day. ALLERGIES: He is intolerant of CODEINE and HYDROCODONE. FAMILY HISTORY: His father of intestinal cancer. SOCIAL HISTORY: He is retired. He lives with his . He denies tobacco use. He drinks 1 glass of wine a day. REVIEW OF SYSTEMS: Negative for fevers and chills. Negative for changes in bowel or bladder habits. Negative for change in weight. Other 12-point review was unremarkable. PHYSICAL EXAMINATION: Height is 5 feet 7 inches, weight is 175 pounds. Temperature 98, heart rate is 60, blood pressure 142/77, respiratory rate is 16 , oxygen saturation 93% on room air. Sclerae anicteric. Oropharynx is pink without erythema. Carotids are 2+ without bruits. JVD is normal. Thyroid is normal. Cardiac Exam: S1, S2 without any murmurs, rubs, or gallops. PMI is normal. Lungs are clear to auscultation bilaterally. There is no dullness to percussion. Abdomen is soft, nontender, and nondistended with normoactive bowel sounds. Extremities show no edema. He has 2+ pulses throughout. The patient is awake, alert, and oriented. He moves all 4 extremities equally. DIAGNOSTIC STUDIES/LAB DATA: CBC within normal limits. Chemistries within normal limits. Peak troponin was 0.08. Total cholesterol 179. LDL cholesterol was 101. IMPRESSION AND RECOMMENDATIONS: This is an 78-year-old gentleman with a history of coronary artery disease who came to the hospital because of unstable angina, relieved with nitroglycerin. His initial EKG does show peaked T waves. His EKG today is now normal. His troponin level reached a maximum of 0.08. This morning, the patient is pain-free. Given the patient's presentation and his known history of coronary artery disease, it is my recommendation that the patient undergo cardiac catheterization. The patient is already on heparin, beta brayden, aspirin, and statin therapy. I would strongly consider switching his medication to Lipitor 80 mg a day given his LDL cholesterol of over 100. Further recommendations pending the results of his cardiac catheterization. This was described in detail to the patient and he is willing to proceed. The patient is willing to rescind his DNR during the procedure. [id number]/[facility] #: [id number] MTDD
[2019-07-05] MEDS: Pantoprazole TAB * 40 MG TAB PO SCH (17:40)
[2019-07-05] MEDS: Atenolol TAB* 50 MG PO SCH (17:40)
[2019-07-05] MEDS ORDERED: Atenolol TAB* 25 MG PO SCH (18:00)
[2019-07-05] MEDS: ALPRAZolam TAB* 0.25 MG PO PRN (21:14)
[2019-07-05] MEDS: Atorvastatin* 10 MG TAB PO SCH (21:14)
[2019-07-05] MEDS ORDERED: NS 0.9% 1000 ML** 1,000 ML IV SCH (23:55)
[2019-07-06] MEDS: Heparin DRIP 25,000 UNITS(*) 25,000 UNITS/500 ML BAG IV SCH (00:12)
[2019-07-06 06:49] LABS: ABS Eosinophils 0.2 10^3/ul (0-0.6); ABS Lymphocytes 1.9 10^3/ul (1.0-4.8); ABS Monocytes 0.8 10^3/ul (0-0.8); ABS Neutrophils 4.8 10^3/ul (1.5-7.7); Hematocrit 43 % (42-52); Hemoglobin 14.3 g/dL (14.0-18.0); Lymphocyte % 24.9 %; Mean Corpuscular HGB Conc 33 g/dL (31-36); Mean Corpuscular Hemoglobin 29 pg (27-31); Mean Corpuscular Volume 88 fL (80-94); Mean Platelet Volume 8.5 fL (7.4-10.4); Platelet Count 213 10^3/uL (150-450); Red Blood Count 4.92 10^6 /uL (4.18-5.48); Red Cell Distribution Width 16 % (10-15); White Blood Count 7.7 10^3/uL (3.5-10.8)
[2019-07-06 07:06] LABS: EGFR African American 106.4 (>60); EGFR Non-African American 87.9 (>60)
[2019-07-06] MEDS: OMEGA PO SCH (07:52)
[2019-07-06] MEDS: ZEAXANTHIN PO SCH (07:52)
[2019-07-06] MEDS: LUTEIN PO SCH (07:52)
[2019-07-06] MEDS: FISH OIL PO SCH (07:52)
[2019-07-06] MEDS: ACIDOPH PARACASEI B LACTIS PO SCH (07:52)
[2019-07-06] MEDS: DHA PO SCH (07:52)
[2019-07-06] MEDS: EPA PO SCH (07:52)
[2019-07-06] MEDS: Aspirin EC TAB* 81 MG TAB.EC PO SCH (07:56)
[2019-07-06] MEDS: NIFEdipine ER TAB* 30 MG PO SCH ×2 (07:56→21:11)
[2019-07-06] MEDS ORDERED: Diazepam TAB(*) 5 MG ONE (08:19)
[2019-07-06] MEDS ORDERED: VERAPAMIL 2.5 MG/ML 2 ML VIAL ** 5 mg/2 ml ONE (08:37)
[2019-07-06] MEDS ORDERED: Heparin(*) 1000 UNIT/ML 10 ML VIAL CATH LAB IV ONE (08:37)
[2019-07-06] MEDS ORDERED: fentaNYL* 50 MCG/ML 2 ML VIAL (100 MCG VIAL) ONE (08:37)
[2019-07-06] MEDS ORDERED: Midazolam* 1 MG/ML 5 ML VIAL (5 MG) ONE (08:37)
[2019-07-06] MEDS ORDERED: Lidocaine 1% INJ* 10 MG/ML 30 ML SDV ONE (08:38)
[2019-07-06] MEDS ORDERED: nitroGLYCERIN DRIP* 25,000 MCG/250 ML BTL ONE (08:38)
[2019-07-06] MEDS ORDERED: Heparin 2 UNITS/ML IVPREMIX* 2,000 ML IV ONE (08:38)
[2019-07-06] MEDS ORDERED: Iohexol 350 (CONTRAST) 200 ML MDV IV ONE (08:38)
[2019-07-06] MEDS ORDERED: Diazepam TAB(*) 5 MG PO PRN (11:00)
[2019-07-06] MEDS ORDERED: diPHENhydraMINE PO* 25 MG PO PRN (11:00)
--- NOTE | 2019-07-06 16:11 | CATH ---
"*[facility]* [place] [address] Main: [phone] [email or web address] Cardiac Catheterization Patient: Nik Mehta : 1940 Study Date: 07/06/2019 Age: 78 Gender: M HR: Height: 67 in /170.2 cm BSA: 1.96 m^2 Weight: 174.9 lb /79.5 kg BMI: 27.4 kg/m^2 Java Developer: Sanchez Garrison MD Ordering Physician: Sanchez Garrison MD Referring Physician: Sanchez Garrison MD, Bladimir Abernathy, --- - Right coronary angiography. - Left coronary angiography. Summary: 1. Left posterior descending: Proximal vessel lesion: There is a sub total occlusion with KAT II flow. Known small vessel (<1.5 mm) from previous cath (2001) 2. Mild other disease. Recommendations: Patient with no critical stenosis. Patient will be treated with ASA and Plavix for 6 months. History: PMH: Myocardial infarction. Risk factors: Hypertension. Dyslipidemia. Labs, prior tests, procedures, and surgery: Blood tests: Troponin I (pre-procedure) of 0.07 ng/ml. Partial thromboplastin time (PTT) of 65.4 sec. Serum potassium (K) of 3.7 mEq/l. Serum sodium (Na) of 140 mEq/l. Serum creatinine (current admission) of 0.84 mg/dl. Blood urea nitrogen of 23 mg/dl. Glucose of 108 mg/dl. Platelet count of 213 th/ul. White blood cell count (WBC) of 0.01 th/ul. Red blood cell count (RBC) of 4920 th/ul. Hematocrit of 43 %. Hemoglobin (pre-procedure) of 14.3 g/dl. Study data: Study status: Cardiac cath: urgent. Location: Catheterization laboratory. Consent: The risks, benefits, and alternatives to the procedure were explained to the patient and/or their healthcare premium representative and written informed consent was obtained. All available pre-procedure labs were reviewed. Height: 170.2 cm. 67 in. Weight: 79.5 kg. 174.9 lb. Body surface area: 1.96 m^2. Body mass index: 27.4 kg/m^2. Procedure: 1. Initial setup. The patient was brought to the laboratory. Surface ECG leads, blood pressure measurements, and pulse oximetric signals were monitored. A baseline seven lead ECG was recorded. A time out was observed per protocol. 2. Skin preparation. The planned puncture sites were prepped and draped in the usual sterile manner. 3. Local anesthesia. 1% lidocaine was administered. 4. Sedation. was administered. 5. Local anesthesia. 1% lidocaine (1 ml) was administered. 6. Right radial artery access. A 6F [place] Slender sheath was advanced into the vessel. 7. Supplemental oxygen. Oxygen, 2 L/min was administered throughout the procedure. 8. Supplemental oxygen. Oxygen, 4 L/min was administered throughout the procedure. 9. Selective right coronary angiography. A 5F FR 4.0 Impulse catheter was advanced into the right coronary vessel ostium under fluoroscopic guidance. Contrast was injected. Images were obtained in multiple projections. 10. Selective left coronary angiography. A 5F FL 3.5 Diagnostic Impulse catheter was advanced into the left coronary vessel ostium under fluoroscopic guidance. Contrast was injected. Images were obtained in multiple projections. 11. Right radial artery hemostasis. Vessel closure was achieved with a Regular Vasc Band device. Study completion: Minimal estimated blood loss. All catheters inserted during the procedure were removed. There were no apparent complications. Administered medications: Heparin, infusion, at a rate of 800units/hr, IV was discontinued. VALIUM (Diazepam), 5mg, PO. Aspirin, 81mg, PO. (Radial) Nitroglycerin, 300mcg, intra-arterially. (Radial) Verapamil, 3mg, intra-arterially. VERSED (Midazolam), for a total dose of 3mg, IV. Fentanyl, for a total dose of 50mcg, IV. NaCl 0.9% , infusion , at a rate of 100 ml/hr. Contrast: Omnipaque 350 65 ml (total dose). Omnipaque 350 135 ml (wasted). Radiation: Fluoroscopy dose: 128.4 cGy. Discharge: The patient tolerated the procedure well and was discharged from the lab in stable condition. Findings Coronary arteries: The coronary circulation is left dominant. Left main: Mildly calcified. Mid-vessel lesion: There is a 0% stenosis. LAD: Mildly calcified. Mid-vessel lesion: There is a 40% stenosis. Left circumflex: 1st obtuse marginal: Mid-vessel lesion: There is a 30% stenosis. Left posterior descending: Proximal vessel lesion: There is a 100% stenosis. Right coronary: Hemodynamics: + + + |Stage description |Condition 1 -| + + + |Arterial pressure s/d (m)|124/70 (93) | + + + Prepared and electronically signed by Sanchez Garrison MD 07/06/2019 16:11"
[2019-07-06] MEDS: Methadone TAB* 10 MG PO PRN (16:45)
[2019-07-06] MEDS: Pantoprazole TAB * 40 MG TAB PO SCH (17:30)
[2019-07-06] MEDS: Atenolol TAB* 50 MG PO SCH (17:30)
[2019-07-06] MEDS: Atorvastatin* 10 MG TAB PO SCH (21:11)
[2019-07-06] MEDS: ALPRAZolam TAB* 0.25 MG PO PRN (21:11)
[2019-07-07 06:18] LABS: ABS Eosinophils 0.2 10^3/ul (0-0.6); ABS Lymphocytes 1.8 10^3/ul (1.0-4.8); ABS Monocytes 0.8 10^3/ul (0-0.8); ABS Neutrophils 4.3 10^3/ul (1.5-7.7); Eosinophil % 2.9 %; Hematocrit 39 % (42-52); Hemoglobin 13.3 g/dL (14.0-18.0); Lymphocyte % 25.3 %; Mean Corpuscular HGB Conc 34 g/dL (31-36); Mean Corpuscular Hemoglobin 29 pg (27-31); Mean Corpuscular Volume 87 fL (80-94); Mean Platelet Volume 8.4 fL (7.4-10.4); Nucleated Red Blood Cells % 0.1; Platelet Count 202 10^3/uL (150-450); Red Blood Count 4.51 10^6 /uL (4.18-5.48); Red Cell Distribution Width 15 % (10-15); White Blood Count 7.1 10^3/uL (3.5-10.8)
[2019-07-07 06:36] LABS: BUN/Creatinine Ratio 27.6 (8-20); Calcium 9.3 mg/dL (8.6-10.3); EGFR African American 102.2 (>60); EGFR Non-African American 84.4 (>60); Potassium 4.1 mmol/L (3.5-5.0)
[2019-07-07] MEDS: ACIDOPH PARACASEI B LACTIS PO SCH (07:51)
[2019-07-07] MEDS: FISH OIL PO SCH (07:52)
[2019-07-07] MEDS: ZEAXANTHIN PO SCH (07:52)
[2019-07-07] MEDS: OMEGA PO SCH (07:52)
[2019-07-07] MEDS: DHA PO SCH (07:52)
[2019-07-07] MEDS: LUTEIN PO SCH (07:52)
[2019-07-07] MEDS: EPA PO SCH (07:52)
[2019-07-07] MEDS: NIFEdipine ER TAB* 30 MG PO SCH (08:23)
[2019-07-07] MEDS: Methadone TAB* 10 MG PO PRN (08:23)
[2019-07-07] MEDS: Aspirin EC TAB* 81 MG TAB.EC PO SCH (08:23)
[2019-07-07 08:26] VITALS: BP 143/78
[2019-07-07] MEDS ORDERED: Clopidogrel TAB* 75 MG PO SCH (09:00)
== END 2019-07-07 12:50 | disposition home or self-care (01) | DRG 287 ==
LOC: ED 11:53 → MEDTELE 14:28 → OBSVTOIN 07-05 16:00
PROVIDERS: ADMIT Internal Medicine; ATTEND Internal Medicine Geriatric Medicine
PROC: B2111ZZ Fluoroscopy of Multiple Coronary Arteries using Low Osmolar Contrast (ICD-10-PCS; principal; 2019-07-06 08:30)
DX: I24.9 Acute ischemic heart disease, unspecified (principal); I47.1 Supraventricular tachycardia; I25.10 Atherosclerotic heart disease of native coronary artery without angina pectoris; I10 Essential (primary) hypertension; M45.9 Ankylosing spondylitis of unspecified sites in spine; K21.9 Gastro-esophageal reflux disease without esophagitis; F41.9 Anxiety disorder, unspecified; M19.90 Unspecified osteoarthritis, unspecified site; M06.9 Rheumatoid arthritis, unspecified; E78.00 Pure hypercholesterolemia, unspecified; F32.9 Major depressive disorder, single episode, unspecified; H35.30 Unspecified macular degeneration; Z96.649 Presence of unspecified artificial hip joint; E83.52 Hypercalcemia; G89.29 Other chronic pain; Z85.820 Personal history of malignant melanoma of skin; Z88.5 Allergy status to narcotic agent; Z28.21 Immunization not carried out because of patient refusal; Z88.6 Allergy status to analgesic agent; I25.2 Old myocardial infarction
CPT/HCPCS: 36415; 71046; 80048; 80053; 80061; 82306; 82330; 82565; 83735; 83970; 84484; 84520; 85025; 85730; 93005; 93306; 93454; 96365; 96375; 99156; 99157; 99284; A9270-GY; G0378; J0360; J1644; J2250; J3010; J3475

== ENCOUNTER 2019-10-02 22:58 | Inpatient (IN) | payer MEDICARE, BC ==
[2019-10-02] MEDS ORDERED: Diazepam TAB(*) 5 MG PO ONE (23:19)
--- NOTE | 2019-10-02 23:24 | ED ---
Back Pain - HPI Summary HPI Summary: 78-year-old male with significant past medical history of ankylosing spondylitis presents to the emergency department today complaining of low back pain after trying to get out of his chair. Patient endorses top 10 back pain which is worse with movement. Patient states he hurt so much she is unable to ambulate. Patient states he took 10 mg methadone but hasn't "touched my pain". Patient denies numbness or tingling in the lower extremities or saddle paresthesia. Patient is able to move his feet bilaterally. Patient is otherwise well and denies fever, chest pain, abdominal pain, shortness breath and urination, nausea, vomiting diarrhea. - History of Current Complaint Chief Complaint: EDBackInjuryPain Stated Complaint: BACK PAIN PER EMS Time Seen by Provider: 10/02/19 23:10 Hx Obtained From: Patient Onset/Duration: Sudden Onset Onset/Duration: Started Hours Ago Timing: Constant Severity Initially: Severe Severity Currently: Severe Pain Intensity: 10 Pain Scale Used: 0-10 Numeric Aggravating Symptom(s): Movement, Lifting, Bending, Cough Alleviating Symptom(s): Rest Associated Signs And Symptoms: Negative: Swelling, Redness, Bruising, Fever, Numbness, Bladder Incontinence, Bowel Incontinence - Allergies/Home Medications Allergies/Adverse Reactions: Allergies Allergy/AdvReac Type Severity Reaction Status Date / Time codeine AdvReac Vomiting Verified 10/02/19 23:06 hydrocodone [From Vicodin] AdvReac Vomiting Verified 10/02/19 23:06 meperidine [From Demerol] AdvReac Vomiting Verified 10/02/19 23:06 Home Medications: Home Medications ALPRAZolam [Xanax] 0.25 mg PO TID PRN 02/13/13 [History Confirmed 10/02/19] Aspirin [Aspirin Enteric Coated 81 MG] 81 mg PO QAM 02/13/13 [History Confirmed 10/02/19] Atenolol 25 mg PO QPM 02/13/13 [History Confirmed 10/02/19] Clobetasol Propionate 0.05 % TOPICAL TID PRN 02/13/13 [History Confirmed ] Methadone HCl 10 mg PO QID PRN 02/13/13 [History Confirmed 10/02/19] NIFEdipine [Procardia Xl] 30 mg PO BID 07/19/13 [History Confirmed 10/02/19] Nitroglycerin TAB 0.4 MG* 0.4 mg SL Q5M PRN 02/13/13 [History Confirmed 10/02/19 ] Pantoprazole Sodium [Protonix] 40 mg PO QPM 02/13/13 [History Confirmed 10/02/19 ] Pravastatin Sodium [Pravachol] 40 mg PO BEDTIME 02/13/13 [History Confirmed 01/15] L.acidoph,Paracasei, B.lactis [Probiotic] 1 each PO DAILY 07/04/19 [History Confirmed 10/02/19] Lutein/Zeaxanthin [Ocuvite Lutein 25-5 mg Softgel] 1 cap PO DAILY 07/04/19 [ History Confirmed 10/02/19] Lander-3/Dha/Epa/Fish Oil [Fish Oil 1,000 mg Softgel] 1,000 mg PO DAILY 07/04/19 [History Confirmed 10/02/19] Atenolol TAB* [Tenormin TAB* 50 MG] 50 mg PO QPM 30 Days #30 tab 07/07/19 [Rx Confirmed 10/02/19] Clopidogrel TAB* [Plavix TAB*] 75 mg PO DAILY 30 Days #30 tab 07/07/19 [Rx Confirmed 10/02/19] PMH/Surg Hx/FS Hx/Imm Hx Endocrine/Hematology History: Denies: Hx Diabetes Cardiovascular History: Reports: Hx Angina, Hx Coronary Artery Disease, Hx Hypercholesterolemia, Hx Hypertension - CONTROL WITH MEDS, Hx Myocardial Infarction, Hx Rheumatic Fever - A CHILD, Other Cardiovascular Problems/ Disorders - CHOLESTEROL CONTROL WITH MEDICATION Denies: Hx Pacemaker/ICD, Hx Valvular Heart Disease Respiratory History: Denies: Hx Asthma, Hx Chronic Obstructive Pulmonary Disease (COPD) GI History: Reports: Hx Gastroesophageal Reflux Disease - CONTROL WITH MEDS History: Reports: Hx Kidney Stones - HX - PASSED Denies: Hx Chronic Renal Failure, Hx Renal Disease Musculoskeletal History: Reports: Hx Arthritis, Hx Rheumatoid Arthritis Sensory History: Reports: Hx Contacts or Glasses - GLASSES Denies: Hx Hearing Aid Opthamlomology History: Reports: Hx Contacts or Glasses - GLASSES Neurological History: Reports: Other Neuro Impairments/Disorders - XANAX PRIOR TO PROCEDURES FOR ANXIETY Psychiatric History: Reports: Hx Anxiety Denies: Hx Panic Disorder - Cancer History Cancer Type, 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 1951 BONE AND CYST REMOVAL BILATERAL FEMURS,. 1961 RIGHT HIP REPLACEMENT AND MULTIPLE RIGHT HIPS SURGERIES DUE TO STAPH INFECTION, [place]. 1979 LEFT HIP REPLACEMENT, [place]. 1982, 1986 RIGHT HIP REVISIONS, [place]. 1987 LEFT HIP REVISION, [place]. 2005 MELANOMA REMOVED FROM BACK, X 2, [facility]. 2006 MELANOMA REMOVED FROM LEFT SIDE OF FACE, [facility]. 2011 RIGHT HIP RECONSTRUCTION, [facility]. 2011 LEFT WRIST CARPAL NATHANAEL Hx Anesthesia Reactions: No Infectious Disease History: No Infectious Disease History: Denies: Traveled Outside the [place] in Last 30 Days - Family History Known Family History: Positive: Other - Negative anesthesia reaction - Social History Alcohol Use: Occasionally Alcohol Amount: 1-2 GLASSES OF WINE DAILY Hx Substance Use: No Substance Use Type: Reports: None Hx Tobacco Use: No Smoking Status (MU): Never Smoked Tobacco Review of Systems Constitutional: Negative Eyes: Negative ENT: Negative Cardiovascular: Negative Respiratory: Negative Gastrointestinal: Negative Genitourinary: Negative Positive: Arthralgia, Myalgia Skin: Negative Neurological/Mental Status: Negative Psychological: Normal All Other Systems Reviewed And Are Negative: Yes Physical Exam - Summary Physical Exam Summary: Patient has pain with palpation of the midline lumbar spine. Patient has diminished range of motion due to pain. Patient has no ecchymosis, edema, erythema the back. Triage Information Reviewed: Yes Vital Signs On Initial Exam: Initial Vitals Temp Pulse Resp BP Pulse Ox 98.5 F 96 22 154/98 96 10/02/19 22:59 10/02/19 22:59 10/02/19 22:59 10/02/19 22:59 10/02/19 22:59 Vital Signs Reviewed: Yes Appearance: Positive: Well-Appearing, No Pain Distress, Well-Nourished Skin: Positive: Warm, Skin Color Reflects Adequate Perfusion Procedures - Sedation Patient Received Moderate/Deep Sedation with Procedure: No Diagnostics - Vital Signs Vital Signs Temp Pulse Resp BP Pulse Ox 10/02/19 22:59 98.5 F 96 22 154/98 96 - Laboratory Lab Statement: Any lab studies that have been ordered have been reviewed, and results considered in the medical decision making process. Back Pain Course/Dx - Course Course Of Treatment: Patient was evaluated in the emergency department today for back pain. Vitals noted and stable. Patient was given 10 mg of Valium, 8 mg of morphine and 100 g of fentanyl for pain before he could tolerate CT scan of lumbar spine. CT scan of the lumbar spine pending. Patient signed out to Petros Foreman M.D. at 0230. - Diagnoses Differential Diagnosis/HQI/PQRI: Positive: Cauda Equina Syndrome, Compressive Cord Syndrome, Fracture, Herniated Disc, Strain, Sprain Provider Diagnoses: Back pain Discharge ED - Sign-Out/Discharge Documenting (check all that apply): Sign-Out Patient Signing out patient TO: Petros Foreman Receiving patient FROM: Braulio Mccray - Discharge Plan Referrals: Martita Davison MD [Primary Care Provider] -
[2019-10-03] MEDS ORDERED: Morphine 4 MG/ML VIAL (1 ml) 4 MG/ML VIAL IV ONE ×3 (00:20→01:39)
[2019-10-03] MEDS ORDERED: fentaNYL* 50 MCG/ML 2 ML VIAL (100 MCG VIAL) IV SLOW PU ONE (02:21)
--- NOTE | 2019-10-03 03:03 | ED ---
Progress - Progress Note Progress Note: This patient was signed out at shift change at 0230, pending disposition, awaiting lumbar CT. Lumpar Spine CT reveals per radiologist IMPRESSION: 1. Findings of ankylosing spondylosis versus inflammatory bowel disease spinal spondylopathy with moderate multilevel degeneration including likely compression of the bilateral L1 and L2 nerve roots. 2. 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 No followup indicated. Pt feels his back is in too much pain and will be admitted. - Results/Orders Results/Orders: Lumpar Spine CT reveals per radiologist IMPRESSION: 1. Findings of ankylosing spondylosis versus inflammatory bowel disease spinal spondylopathy with moderate multilevel degeneration including likely compression of the bilateral L1 and L2 nerve roots. 2. 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 No followup indicated. ED robin has reviewed this report. Re-Evaluation - Re-Evaluation First Eval Re-Evaluation Time: 05:24 Comment: After signing discharge paperwork, pt has decided his back is in too much pain and he does not want to leave. Course/Dx - Course Course Of Treatment: This patient was signed out at shift change at 0230, pending disposition, awaiting lumbar CT. Lumpar Spine CT reveals per radiologist IMPRESSION: 1. Findings of ankylosing spondylosis versus inflammatory bowel disease spinal. spondylopathy with moderate multilevel degeneration including likely compression of the bilateral L1 and L2 nerve roots. 2. 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 No followup indicated. Pt recieved oxycodoine. The patients condition is stable and will be discharged home. After signing discharge paperwork, and started to leave, pt has decided his back is in too much pain and he does not want to leave. The pt will be admitted. - Diagnoses Provider Diagnoses: Back pain - Provider Notifications Discussed Care Of Patient With: Chad Richards Time Discussed With Above Provider: 06:24 Instructed by Provider To: Other - discussed case with Dr. Richards who accepts pt for admittion. Discharge ED - Sign-Out/Discharge Documenting (check all that apply): Patient Departure - Admit - Discharge Plan Condition: Fair Disposition: ADMITTED TO [facility] - Billing Disposition and Condition Condition: FAIR Disposition: Admitted to [facility] - Attestation Statements Document Initiated by Scribe: Yes Documenting Scribe: Nicol Coon Provider For Whom Scribe is Documenting (Include Credential): Petros Foreman MD Scribe Attestation: Nicol Canchola, scribed for Petros Foreman MD on 10/05/19 at 0111. Scribe Documentation Reviewed: Yes Provider Attestation: The documentation as recorded by the scribe, Nicol Coon accurately reflects the service I personally performed and the decisions made by me, Petros Foreman MD Status of Scribe Document: Viewed
--- OUTSIDE RECORDS SUMMARY | 2019-10-03 03:31 | XMS REPORT | Continuity of Care Document ---
:1940 External Reference #:[id number] Author Name Jeb Rubalcava M.D. Address [address] [place] [address] Care Team Providers Name Role Phone Martita Davison M.D. - Internal Medicine Care Team Information Social Science Manager [phone] Problems Active Problems Provider Date Essential hypertension [...] Heart failure Jeb Rubalcava M.D. Onset: 12/24/2018 Myocardial infarction Onset: Note: June 2019 Social History Type Date Description Comments Sex Unknown ETOH Use Consumes 2 glasses of wine per day Tobacco Use Start: Unknown Patient has never smoked Recreational Drug Use Never Used Drugs Smoking Status Reviewed: 09/29/19 Patient has never smoked Allergies, Adverse Reactions, [...] Needed Pantoprazole Sodium Unknown 40mg Tablets DR Borjaserazine insert 1 Unknown 25mg suppository Suppository rectally every 12 hours Atenolol 1 daily Unknown 25mg Tablets Procardia Unknown 10mg Capsules Aspirin Adult Low Dose Unknown 81mg Tablets DR Ruff Unknown 10mg Capsules Nitroglycerin ER Unknown 2.5mg Capsules ER Iron Unknown 28mg Tablets Pravastatin Sodium Davison, Martita 40mg M.D. Tablets Nifedipine ER Osmotic Davison, Martita Release M.D. 30mg Tablets ER 24HR Alprazolam take 1 tablet by Unknown 0.25mg Tablets mouth three times a day if needed Narcan Unknown 4mg/0.1ML Liquid Clobetasol Propionate Unknown 0.05% Ointment Clopidogrel Bisulfate TK 1 T PO D Unknown 75mg Tablets Medications Administered in Office Medication SIG Qnty Indications Ordering Provider Date Unclassified Biologics, I.E. Pako Haddad M.D. 06/18/2011 Avastin Injection Unclassified Biologics, I.EAnders Haddad M.D. 05/18/2011 Avastin Injection Unclassified Biologics, I.EAnders Haddad M.D. 04/18/2011 Avastin Injection Immunizations Description No Information Available Vital Signs Description No Information Available Results Description No Information Available Procedures Date Code Description Status 06/30/2019 71666 Est Patient Intermediate Exam Completed Medical Devices Description No Information Available Encounters Description No Information Available Assessments Date Code Description Provider 09/29/2019 H40.1113 Primary open-angle glaucoma, right eye, Jeb Rubalcava M.D. severe stage 09/29/2019 H25.12 Age-related nuclear cataract, left eye Jeb Rubalcava M.D. 06/30/2019 H40.1113 Primary open-angle glaucoma, right eye, Jeb Rubalcava M.D. 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 If you are happy with your vision as it isnow, then we will see you at your next scheduled appointment. If you feel like your vision is getting worse before your scheduled appointment, please call Christine at [phone]. Functional Status Description No Information Available Mental Status Description No Information Available Referrals Description No Information Available
[2019-10-03] MEDS ORDERED: oxyCODONE TAB* 5 MG TAB PO ONE (03:55)
[2019-10-03 08:05] LABS: ABS Basophils 0.1 10^3/ul (0-0.2); ABS Lymphocytes 1.4 10^3/ul (1.0-4.8); ABS Monocytes 0.9 10^3/ul (0-0.8); ABS Neutrophils 7.8 10^3/ul (1.5-7.7); Eosinophil % 0.2 %; Hematocrit 39 % (42-52); Hemoglobin 13.2 g/dL (14.0-18.0); Lymphocyte % 13.4 %; Mean Corpuscular HGB Conc 34 g/dL (31-36); Mean Corpuscular Hemoglobin 29 pg (27-31); Mean Corpuscular Volume 85 fL (80-94); Platelet Count 266 10^3/uL (150-450); Red Blood Count 4.56 10^6 /uL (4.18-5.48); Red Cell Distribution Width 15 % (10-15); White Blood Count 10.1 10^3/uL (3.5-10.8)
[2019-10-03 08:22] LABS: Albumin 4.1 g/dL (3.2-5.2); Albumin/Globulin Ratio 1.5 (1-3); BUN/Creatinine Ratio 32.3 (8-20); C Reactive Protein 11.91 mg/L (<8.01); Calcium 9.7 mg/dL (8.6-10.3); EGFR African American 91.2 (>60); EGFR Non-African American 75.4 (>60); Globulin 2.7 g/dL (2-4); Potassium 4.1 mmol/L (3.5-5.0); Total Bilirubin 0.4 mg/dL (0.2-1.0); Total Protein 6.8 g/dL (6.4-8.9)
[2019-10-03] MEDS ORDERED: Methadone TAB* 10 MG PO PRN (09:24)
[2019-10-03] MEDS ORDERED: Nitroglycerin TAB 0.4 MG* 0.4 MG TAB SL PRN (09:24)
[2019-10-03] MEDS ORDERED: Magnesium Hydroxide LIQ* 30 ML UDC PO PRN (09:35)
[2019-10-03] MEDS ORDERED: Senna TAB 8.6 mg* TAB PO PRN (09:35)
[2019-10-03] MEDS ORDERED: Polyethylene Glycol 3350* 17 GM PACKET PO PRN (09:35)
[2019-10-03] MEDS ORDERED: Acetaminophen TAB* 325 MG PO PRN (09:36)
[2019-10-03] MEDS: Morphine INJ* 2 MG/ML 1 ML SYRINGE (TWO MG - NEW SYRINGE VERSION) IV PRN ×3 (10:21→20:22)
[2019-10-03] MEDS: NIFEdipine ER TAB* 60 MG PO SCH (11:28)
--- NOTE | 2019-10-03 12:52 | HP ---
CC: Dr. Davison * HISTORY AND PHYSICAL: DATE OF ADMISSION: 10/03/19 PRIMARY CARE PROVIDER: Martita Davison MD. CHIEF COMPLAINT: Back pain. HISTORY OF PRESENT ILLNESS: Mr. Mehta is an 78-year-old male with a history of ankylosing spondylitis and chronic low back pain secondary to it on methadone , who stated that approximately 2 weeks ago he went to Physical Therapy for some worsening of his chronic pain, and when he started exercising, it actually made him much worse. Last night, he was sleeping in his recliner. He woke up suddenly with excruciating pain in his lower back. He stated that usually it is the area of L1 and L2 on his back. The pain was uncontrollable. He came into the ED for evaluation. He received several doses of morphine and he was ready for discharge, but when he stood up and tried to get into his vehicle, he was unable to get into his car due to severe pain and came back to the ED for admission for observation. Please note that the patient denies any numbness or any weakness. He had been using crutches for the past several years and that is unchanged. He has had problems with movement of his right hip but that is due to several and complicated surgeries and ended up with a long "metal cheryl" instead of his right femur that was placed in [facility] several years ago. PAST MEDICAL HISTORY: 1. Coronary artery disease. 2. Cardiac catheterization in June 2019 showed 30% to 40% stenosis in several arteries. 3. Hypertension. 4. Ankylosing spondylitis with chronic pain . 5. Nephrolithiasis. 6. Hypercholesterolemia. 7. Gastroesophageal reflux disease. 8. Depression. 9. Anxiety. 10. Macular degeneration. 11. Status post multiple excisions of melanoma. PAST SURGICAL HISTORY: Glaucoma surgery and cataract surgery. A total of 9 hip surgeries and his right lower extremity is 3 inches shorter than the left subsequently to that. MEDICATIONS AT HOME: Include: 1. Fish oil 1000 mg daily. 2. Probiotic 1 tablet daily. 3. Ocuvite 1 tablet daily. 4. Clobetasol 0.05% topical on a p.r.n. basis. 5. Xanax 0.25 mg t.i.d. p.r.n. 6. Nitroglycerin sublingual on a p.r.n. basis. 7. Nifedipine XL 60 mg daily. 8. Pravastatin 40 mg daily. 9. Piroxicam 20 mg q.a.m. 10. Pantoprazole 40 mg a day. 11. Methadone 10 mg up to 4 times a day. 12. Atenolol 50 mg daily. 13. Aspirin 81 mg daily. ALLERGIES: Include CODEINE, HYDROCODONE, MEPERIDINE. He has no problems with morphine. FAMILY HISTORY: Father of cancer of the intestine. Mother of "old age." SOCIAL HISTORY: The patient denies any tobacco or drug use. He drinks a glass of wine every night. 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 He is a full code. REVIEW OF SYSTEMS: Please see history of present illness. All the remaining 12 systems were reviewed with the patient and were otherwise negative. PHYSICAL EXAMINATION GENERAL: The patient is a very pleasant 78-year-old male who is in no acute distress. The patient is alert and oriented x3. VITAL SIGNS: Blood pressure of 150/68, heart rate of 75 and regular, respiratory rate 20, oxygen saturation 95% on room air, temperature of 98.7. HEENT: Head: Atraumatic, normocephalic. Eyes: Pupils are equal and reactive to light and accommodation. Oropharynx clear. Mucosa moist. NECK: Supple. No JVD. No bruits bilaterally. RESPIRATORY: Clear to auscultation bilaterally. CARDIOVASCULAR: Regular rate and rhythm. No murmur. ABDOMEN: Soft, nontender. Bowel sounds present in all 4 quadrants. EXTREMITIES: There is +1 pitting pedal edema, but otherwise pulses +2 bilaterally. There is no clubbing or cyanosis. BACK: On evaluation of the back, the patient has point tenderness overlying the vertebral bodies of L1 and L2. There is also a bony deformity that is palpable in this area protruding slightly. The patient stated that he has had that for the past 30 years. NEUROLOGIC: Speech clear. Cranial nerves II through XII grossly intact. Motor strength is 5/5 bilaterally. The patient's mobility in his right hip is impaired. On his straight-leg raise on the right side, he is able to hold his leg against gravity for approximately 5 seconds before falling down, but it is related to his chronic hip problems and not motor weakness per se. His plantar and dorsiflexion is not impaired bilaterally. LABORATORY DATA: White blood cell count of 10.1, hemoglobin 13.2, hematocrit 39 , and platelets 166. Sodium 140, potassium of 4.1, chloride 106, carbon dioxide 28, BUN 31, creatinine 0.96. Liver function tests showed chronic elevation of alkaline phosphatase of 141. C-reactive protein of 11.9. CT of the lumbar spine obtained on 10/02/19, impression: "Findings of ankylosing spondylitis versus spinal spondylopathy with moderate multilevel degeneration including likely compression of bilateral L1 and L2 nerve roots. Bosniak type 1 and 2 renal cyst. No follow up indicated." ASSESSMENT AND PLAN: 1. Exacerbation of chronic lower back pain with intractable back pain at this point. The patient does not have any radiculopathy symptoms. The pain appears to be related to his L1, L2 area of his lumbar spine. At this point, I briefly discussed with the patient possibility of treating the acute pain with antiinflammatory medications including prednisone. At this point, we are going to hold the patient's piroxicam that he had been using at home and start prednisone 40 mg daily. In addition to that, the patient is going to be continued on his chronic methadone with addition of IV morphine for breakthrough pain. I will ask Physical Therapy and Occupational Therapy to see the patient in evaluation. We will follow with the patient in the morning. 2. The patient has obstructive coronary artery disease. The patient is going to be continued on aspirin and Plavix as well as his beta-brayden. 3. With regard to the patient's hypertension, the patient is going to be continued on nifedipine. 4. For DVT prophylaxis, the patient will be placed on heparin subcutaneously. 5. The patient's code status is full. His surrogate is his . TIME SPENT: Approximately 65 minutes was spent on admission of this patient. More than half that time was spent face to face with the patient during the interview and physical exam. [id number]/[facility] #: [id number] MTDD
[2019-10-03] MEDS: Heparin VIAL(*) 5000 UNITS/ML VIAL (FIVE THOUSAND) SUBCUT SCH ×2 (14:09→21:29)
[2019-10-03] MEDS: Pantoprazole TAB * 40 MG TAB PO SCH (17:36)
[2019-10-03] MEDS ORDERED: ATENOLOL 50 MG PO SCH (18:00)
[2019-10-03] MEDS ORDERED: ATENOLOL 25 MG PO SCH (18:00)
[2019-10-03] MEDS ORDERED: Atenolol TAB* 50 MG PO SCH (18:00)
[2019-10-03] MEDS: Magnesium Hydroxide LIQ* 30 ML UDC PO SCH (20:22)
[2019-10-03] MEDS: Docusate CAP* 100 MG PO SCH (20:23)
[2019-10-03] MEDS ORDERED: NIFEdipine ER TAB* 30 MG PO SCH (21:00)
[2019-10-04] MEDS: Heparin VIAL(*) 5000 UNITS/ML VIAL (FIVE THOUSAND) SUBCUT SCH ×3 (06:35→21:35)
[2019-10-04] MEDS: Magnesium Hydroxide LIQ* 30 ML UDC PO SCH ×2 (08:12→21:32)
[2019-10-04] MEDS: Docusate CAP* 100 MG PO SCH ×2 (08:13→21:27)
[2019-10-04] MEDS: Aspirin EC TAB* 81 MG TAB.EC PO SCH (08:13)
[2019-10-04] MEDS: NIFEdipine ER TAB* 60 MG PO SCH (08:13)
[2019-10-04] MEDS ORDERED: Clopidogrel TAB* 75 MG PO SCH (09:00)
[2019-10-04] MEDS: Morphine INJ* 2 MG/ML 1 ML SYRINGE (TWO MG - NEW SYRINGE VERSION) IV PRN (10:09)
[2019-10-04] MEDS ORDERED: Atenolol TAB* 25 MG PO SCH (18:00)
[2019-10-04] MEDS: Methadone TAB* 10 MG PO SCH (18:06)
[2019-10-04] MEDS: Pantoprazole TAB * 40 MG TAB PO SCH (18:06)
[2019-10-04] MEDS: Atorvastatin* 20 MG TAB PO SCH (21:29)
[2019-10-04] MEDS: ALPRAZolam TAB* 0.25 MG PO PRN (21:31)
[2019-10-05] MEDS ORDERED: Al Hydrox/Mg Hydrox/Simet LIQ* 30 ML UDC PO PRN (01:06)
[2019-10-05] MEDS: ALPRAZolam TAB* 0.25 MG PO PRN ×2 (01:20→20:56)
[2019-10-05 03:34] LABS: ABS Lymphocytes 1.8 10^3/ul (1.0-4.8); ABS Monocytes 0.8 10^3/ul (0-0.8); ABS Neutrophils 4.5 10^3/ul (1.5-7.7); Eosinophil % 0.5 %; Hematocrit 36 % (42-52); Hemoglobin 11.8 g/dL (14.0-18.0); Lymphocyte % 25.2 %; Mean Corpuscular HGB Conc 33 g/dL (31-36); Mean Corpuscular Hemoglobin 28 pg (27-31); Mean Corpuscular Volume 84 fL (80-94); Mean Platelet Volume 8.3 fL (7.4-10.4); Platelet Count 255 10^3/uL (150-450); Red Blood Count 4.21 10^6 /uL (4.18-5.48); Red Cell Distribution Width 15 % (10-15); White Blood Count 7.3 10^3/uL (3.5-10.8)
[2019-10-05 03:49] LABS: ALT 10 U/L (7-52); AST 15 U/L (13-39); Albumin 3.4 g/dL (3.2-5.2); Albumin/Globulin Ratio 1.5 (1-3); Alkaline Phosphatase 111 U/L (34-104); Anion Gap 6 mmol/L (2-11); Blood Urea Nitrogen 31 mg/dL (6-24); CO2 Carbon Dioxide 30 mmol/L (22-32); Calcium 9.1 mg/dL (8.6-10.3); Chloride 104 mmol/L (101-111); EGFR African American 103.5 (>60); EGFR Non-African American 85.6 (>60); Globulin 2.3 g/dL (2-4); Glucose 107 mg/dL (70-100); Potassium 3.8 mmol/L (3.5-5.0); Sodium 140 mmol/L (135-145); Total Protein 5.7 g/dL (6.4-8.9)
[2019-10-05 04:03] LABS: Troponin I 0.06 ng/mL (<0.03)
[2019-10-05] MEDS: Heparin VIAL(*) 5000 UNITS/ML VIAL (FIVE THOUSAND) SUBCUT SCH ×3 (05:55→20:58)
[2019-10-05 07:31] LABS: Troponin I 0.06 ng/mL (<0.03)
[2019-10-05] MEDS ORDERED: Atenolol TAB* 50 MG PO ONE (08:45)
[2019-10-05] MEDS ORDERED: Clopidogrel TAB* 75 MG PO SCH (09:00)
[2019-10-05] MEDS: Piroxicam CAP* 20 MG PO SCH (09:40)
[2019-10-05] MEDS: Clopidogrel TAB* 75 MG PO SCH (09:40)
[2019-10-05] MEDS: Docusate CAP* 100 MG PO SCH ×2 (09:41→20:51)
[2019-10-05] MEDS: Methadone TAB* 10 MG PO SCH ×2 (09:41→20:51)
[2019-10-05] MEDS: Aspirin EC TAB* 81 MG TAB.EC PO SCH (09:42)
[2019-10-05] MEDS: NIFEdipine ER TAB* 60 MG PO SCH (09:42)
[2019-10-05] MEDS: Magnesium Hydroxide LIQ* 30 ML UDC PO SCH ×2 (10:04→20:59)
[2019-10-05 13:14] LABS: Troponin I 0.05 ng/mL (<0.03)
[2019-10-05] MEDS: Pantoprazole TAB * 40 MG TAB PO SCH (17:54)
[2019-10-05] MEDS: Atenolol TAB* 25 MG PO SCH (17:54)
[2019-10-05 19:09] LABS: Troponin I 0.05 ng/mL (<0.03)
[2019-10-05] MEDS: Atorvastatin* 20 MG TAB PO SCH (20:51)
[2019-10-06] MEDS: Heparin VIAL(*) 5000 UNITS/ML VIAL (FIVE THOUSAND) SUBCUT SCH ×4 (05:39→21:27)
[2019-10-06] MEDS: Piroxicam CAP* 20 MG PO SCH (08:49)
[2019-10-06] MEDS: Clopidogrel TAB* 75 MG PO SCH (08:49)
[2019-10-06] MEDS: Aspirin EC TAB* 81 MG TAB.EC PO SCH (08:49)
[2019-10-06] MEDS: Docusate CAP* 100 MG PO SCH ×2 (08:49→21:27)
[2019-10-06] MEDS: NIFEdipine ER TAB* 60 MG PO SCH (08:49)
[2019-10-06] MEDS: Methadone TAB* 10 MG PO SCH ×2 (08:50→21:26)
[2019-10-06] MEDS: Magnesium Hydroxide LIQ* 30 ML UDC PO SCH ×2 (08:50→21:27)
[2019-10-06] MEDS: Morphine INJ* 2 MG/ML 1 ML SYRINGE (TWO MG - NEW SYRINGE VERSION) IV PRN (09:07)
[2019-10-06] MEDS ORDERED: Morphine ORAL.SOLN 10 mg* 2 MG/ML UDC 5 ml PO PRN (09:26)
[2019-10-06] MEDS: Atenolol TAB* 25 MG PO SCH (18:22)
[2019-10-06] MEDS: Pantoprazole TAB * 40 MG TAB PO SCH (18:23)
[2019-10-06] MEDS: ALPRAZolam TAB* 0.25 MG PO PRN (21:26)
[2019-10-06] MEDS: Atorvastatin* 20 MG TAB PO SCH (21:27)
[2019-10-07] MEDS: Heparin VIAL(*) 5000 UNITS/ML VIAL (FIVE THOUSAND) SUBCUT SCH (05:03)
[2019-10-07 07:37] VITALS: BP 159/82
[2019-10-07] MEDS: Magnesium Hydroxide LIQ* 30 ML UDC PO SCH (07:50)
[2019-10-07] MEDS: Aspirin EC TAB* 81 MG TAB.EC PO SCH (07:51)
[2019-10-07] MEDS: Clopidogrel TAB* 75 MG PO SCH (07:51)
[2019-10-07] MEDS: Methadone TAB* 10 MG PO SCH (07:51)
[2019-10-07] MEDS: Docusate CAP* 100 MG PO SCH (07:51)
[2019-10-07] MEDS: NIFEdipine ER TAB* 60 MG PO SCH (07:53)
[2019-10-07] MEDS: Piroxicam CAP* 20 MG PO SCH (07:53)
[2019-10-07 12:28] LABS: HDL Cholesterol 58.5 mg/dL; Magnesium 2.3 mg/dL (1.9-2.7)
[2019-10-07 12:45] LABS: TSH (Thyroid Stimulating Horm) 1.46 mcIU/mL (0.34-5.60)
== END 2019-10-07 12:25 | disposition home or self-care (01) | DRG 552 ==
LOC: ED 22:58 → MED 10-03 09:12 → OBSVTOIN 10-05 08:30 → MED 10-06 18:28
PROVIDERS: ADMIT Internal Medicine; ATTEND Internal Medicine Geriatric Medicine
DX: M54.5 Low back pain (principal); I25.10 Atherosclerotic heart disease of native coronary artery without angina pectoris; M45.6 Ankylosing spondylitis lumbar region; I10 Essential (primary) hypertension; E78.00 Pure hypercholesterolemia, unspecified; K21.9 Gastro-esophageal reflux disease without esophagitis; F32.9 Major depressive disorder, single episode, unspecified; F41.9 Anxiety disorder, unspecified; H35.30 Unspecified macular degeneration; Z85.820 Personal history of malignant melanoma of skin; Z79.82 Long term (current) use of aspirin; Z79.891 Long term (current) use of opiate analgesic; Z79.899 Other long term (current) drug therapy; Z88.5 Allergy status to narcotic agent; Z88.8 Allergy status to other drugs, medicaments and biological substances; Z79.02 Long term (current) use of antithrombotics/antiplatelets
CPT/HCPCS: 36415; 72131; 80053; 80061; 82607; 83735; 84443; 84484; 85025; 86140; 93005; 96374; 96375; 96376; 99283; A9270-GY; G0378; J1644; J2270; J3010; J7512

== ENCOUNTER 2019-10-15 14:27 | Inpatient (IN) | payer MEDICARE, BC ==
--- NOTE | 2019-10-15 14:38 | ED ---
Back Pain - HPI Summary HPI Summary: 78 year old M arriving via ambulance to [facility] complains of worsening, sharp, non radiating back pain rated 10/10 in severity starting 2 weeks ago. Hx chronic back pain, ankylosing spondylitis, hip replacements x9. He saw his primary care provider and was admitted recently for his back pain. No recent fall/injury/trauma to the hip. He has been going to physical therapy for 3 weeks. Patient reports chills and nausea. He denies fever. Symptoms aggravated by movement, Symptoms alleviated by nothing. He usually ambulates with a cane. Medications reviewed. He usually takes methadone. Allergies noted. - History of Current Complaint Chief Complaint: EDBackInjuryPain Stated Complaint: BACK PAIN PER EMS Time Seen by Provider: 10/15/19 14:29 Onset/Duration: Lasting Weeks - 2, Still Present Onset/Duration: Started Weeks Ago - 2, Still Present Timing: Constant Severity Currently: Severe Pain Intensity: 10 Pain Scale Used: 0-10 Numeric Aggravating Symptom(s): Movement, Walking Alleviating Symptom(s): Nothing Associated Signs And Symptoms: Positive: Other - chills, nausea. Negative: Fever - Allergies/Home Medications Allergies/Adverse Reactions: Allergies Allergy/AdvReac Type Severity Reaction Status Date / Time codeine AdvReac Vomiting Verified 10/02/19 23:06 hydrocodone [From Vicodin] AdvReac Vomiting Verified 10/02/19 23:06 meperidine [From Demerol] AdvReac Vomiting Verified 10/02/19 23:06 Home Medications: Home Medications ALPRAZolam [Xanax] 0.25 mg PO TID PRN 02/13/13 [History Confirmed 10/15/19] L.acidoph,Paracasei, B.lactis [Probiotic] 1 each PO DAILY 07/04/19 [History Confirmed 10/15/19] Lutein/Zeaxanthin [Ocuvite Lutein 25-5 mg Softgel] 1 cap PO DAILY 07/04/19 [ History Confirmed 10/15/19] [place]-3/Dha/Epa/Fish Oil [Fish Oil 1,000 mg Softgel] 1,000 mg PO DAILY 07/04/19 [History Confirmed 10/15/19] Atenolol TAB* [Tenormin TAB* 50 MG] 50 mg PO QPM 30 Days #30 tab 07/07/19 [Rx Confirmed 10/15/19] Clopidogrel TAB* [Plavix TAB*] 75 mg PO DAILY 30 Days #30 tab 07/07/19 [Rx Confirmed 10/15/19] Senna TAB 8.6 mg* [Senokot 8.6 mg TAB*] 1 tab PO BEDTIME PRN tab 10/06/19 [Rx Confirmed 10/15/19] Acetaminophen TAB* [Tylenol TAB*] 650 mg PO Q4H PRN tab 10/07/19 [Rx Confirmed 10/15/19] Polyethylene Glycol 3350* [Miralax (17 GM DOSE ARRON)] 17 gm PO DAILY PRN packet 10/07/19 [Rx Confirmed 10/15/19] Aspirin EC TAB* [Ecotrin EC Low Dose 81 MG*] 81 mg PO DAILY 10/15/19 [History Confirmed 10/15/19] Clobetasol 0.05% OINT* 1 applic TOPICAL TID 10/15/19 [History Confirmed 10/15/19 ] NIFEdipine ER TAB* [Procardia Xl TAB*] 60 mg PO DAILY 10/15/19 [History Confirmed 10/15/19] Oxycodone IR 10 MG(NF) 10 mg PO Q4HR PRN 10/15/19 [History Confirmed 10/15/19] Pantoprazole TAB * [Protonix TAB*] 40 mg PO DAILY 10/15/19 [History Confirmed ] Piroxicam CAP* [Feldene CAP*] 20 mg PO DAILY 10/15/19 [History Confirmed ] Pravastatin (NF) [Pravachol (NF)] 40 mg PO BEDTIME 10/15/19 [History Confirmed 10/15/19] PMH/Surg Hx/FS Hx/Imm Hx Endocrine/Hematology History: Denies: Hx Diabetes Cardiovascular History: Reports: Hx Angina, Hx Coronary Artery Disease, Hx Hypercholesterolemia, Hx Hypertension, Hx Myocardial Infarction, Hx Rheumatic Fever - A CHILD, Other Cardiovascular Problems/Disorders - CHOLESTEROL CONTROL WITH MEDICATION Denies: Hx Pacemaker/ICD, Hx Valvular Heart Disease Respiratory History: Denies: Hx Asthma, Hx Chronic Obstructive Pulmonary Disease (COPD) GI History: Reports: Hx Gastroesophageal Reflux Disease - CONTROL WITH MEDS History: Reports: Hx Kidney Stones - HX - PASSED Denies: Hx Chronic Renal Failure, Hx Dialysis, Hx Renal Disease Musculoskeletal History: Reports: Hx Arthritis, Hx Rheumatoid Arthritis Sensory History: Reports: Hx Contacts or Glasses Denies: Hx Hearing Aid Opthamlomology History: Reports: Hx Contacts or Glasses Neurological History: Reports: Other Neuro Impairments/Disorders - XANAX PRIOR TO PROCEDURES FOR ANXIETY Denies: Hx Dementia, Hx Seizures Psychiatric History: Reports: Hx Anxiety Denies: Hx Panic Disorder - Cancer History Cancer Type, 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 1951 BONE AND CYST REMOVAL BILATERAL FEMURS,. 1961 RIGHT HIP REPLACEMENT AND MULTIPLE RIGHT HIPS SURGERIES DUE TO STAPH INFECTION, [place]. 1979 LEFT HIP REPLACEMENT, [place]. 1982, 1986 RIGHT HIP REVISIONS, [place]. 1987 LEFT HIP REVISION, [place]. 2005 MELANOMA REMOVED FROM BACK, X 2, [facility]. 2006 MELANOMA REMOVED FROM LEFT SIDE OF FACE, [facility] [place]. 2011 RIGHT HIP RECONSTRUCTION, [facility]. 2011 LEFT WRIST CARPAL NATHANAEL Hx Anesthesia Reactions: No Infectious Disease History: No Infectious Disease History: Denies: Traveled Outside the [place] in Last 30 Days - Family History Known Family History: Positive: Other - Negative anesthesia reaction Negative: Cardiac Disease - Social History Alcohol Use: glass of wine in the evening Alcohol Amount: 1-2 GLASSES OF WINE DAILY Hx Substance Use: No Substance Use Type: Reports: None Hx Tobacco Use: No Smoking Status (MU): Never Smoked Tobacco Review of Systems Positive: Chills. Negative: Fever Positive: Nausea Positive: Other - back pain All Other Systems Reviewed And Are Negative: Yes Physical Exam - Summary Physical Exam Summary: Constitutional: Well-developed, Well-nourished, Alert. Moderate distress secondary to pain Skin: Warm, Dry HENT: Normocephalic; Atraumatic Eyes: Conjunctiva normal Neck: Musculoskeletal ROM normal neck. (-) JVD, (-) Stridor, (-) Nuchal rigidity Cardio: Rhythm regular, rate normal, Heart sounds normal; Intact distal pulses; Radial pulses are 2+ and symmetric. (-) Murmur Pulmonary/Chest wall: Effort normal. (-) Respiratory distress, (-) Wheezes, (-) Rales Abd: Soft, (-) tenderness, (-) Distension, (-) Guarding, (-) Rebound Musculoskeletal: (-) Edema; No C, T, or L spine tenderness Lymph: (-) Cervical adenopathy Neuro: Alert, Oriented x3 Psych: Mood and affect Normal Triage Information Reviewed: Yes Vital Signs On Initial Exam: Initial Vitals Temp Pulse Resp BP Pulse Ox 96.9 F 80 16 172/100 92 10/15/19 14:29 10/15/19 14:29 10/15/19 14:29 10/15/19 14:29 10/15/19 14:29 Vital Signs Reviewed: Yes Procedures - Sedation Patient Received Moderate/Deep Sedation with Procedure: No Diagnostics - Vital Signs Vital Signs Temp Pulse Resp BP Pulse Ox 10/15/19 14:29 96.9 F 80 16 172/100 92 - Laboratory Lab Statement: Any lab studies that have been ordered have been reviewed, and results considered in the medical decision making process. Re-Evaluation - Re-Evaluation First Eval Re-Evaluation Time: 17:30 Change: Unchanged - patient is requesting neurosurgery consult Second Eval Re-Evaluation Time: 18:13 Change: Unchanged - Dr. Mendoza agrees to consult Back Pain Course/Dx - Course Course Of Treatment: 78 y/o male w hx ankylosing spondylitis p/w back pain. - recent admit for similar. No new symptoms. No weakness/numbness of LE, trauma, fever. No tenderness on palpation. Reporting severe pain, given morphine x2. Patient is already on significant pain medications at home making his pain difficult to control. D/w Dr. Ruby for future workup, not an emergent surgical candidate and probably poor candidate overall. Given persistent and difficult to control pain, will admit to medicine. Given valium and prednisone - Diagnoses Provider Diagnoses: Ankylosing spondylitis - Provider Notifications Discussed Care Of Patient With: Alejandro Queen - He agrees to f/u with patient outpatient in his office. He has already discussed with Dr. Davison that no immediate intervention is required. He states patient likely would not be good candidate for surgery. Time Discussed With Above Provider: 17:32 Discharge ED - Sign-Out/Discharge Documenting (check all that apply): Patient Departure - Discharge Plan Condition: Stable Disposition: ADMITTED TO [facility] Referrals: Martita Davison MD [Primary Care Provider] - - Billing Disposition and Condition Condition: STABLE Disposition: Admitted to [facility] - Attestation Statements Document Initiated by Scribe: Yes Documenting Scribe: Jeanine Stallworth Provider For Whom Scribe is Documenting (Include Credential): Cole Guajardo MD Scribe Attestation: I, Jeanine Stallworth, scribed for Cole Guajardo MD on 10/15/19 at 1819. Scribe Documentation Reviewed: Yes Provider Attestation: The documentation as recorded by the scribe, Jeanine Stallworth accurately reflects the service I personally performed and the decisions made by me, Cole Guajardo MD Status of Scribe Document: Viewed
[2019-10-15] MEDS ORDERED: Ondansetron INJ* 2 MG/ML VIAL IV ONE (14:54)
[2019-10-15] MEDS ORDERED: Morphine 4 MG/ML VIAL (1 ml) 4 MG/ML VIAL IV ONE ×2 (14:54→15:53)
[2019-10-15] MEDS ORDERED: Diazepam TAB(*) 5 MG PO ONE (17:14)
[2019-10-15] MEDS ORDERED: Polyethylene Glycol 3350* 17 GM PACKET PO PRN (19:07)
[2019-10-15] MEDS ORDERED: Acetaminophen TAB* 325 MG PO PRN (19:07)
[2019-10-15] MEDS ORDERED: Senna TAB 8.6 mg* TAB PO PRN (19:07)
[2019-10-15 19:21] LABS: ABS Lymphocytes 0.8 10^3/ul (1.0-4.8); ABS Monocytes 0.7 10^3/ul (0-0.8); ABS Neutrophils 6.8 10^3/ul (1.5-7.7); Eosinophil % 0.2 %; Hematocrit 37 % (42-52); Hemoglobin 12.6 g/dL (14.0-18.0); Lymphocyte % 9.1 %; Mean Corpuscular HGB Conc 34 g/dL (31-36); Mean Corpuscular Hemoglobin 28 pg (27-31); Mean Corpuscular Volume 84 fL (80-94); Mean Platelet Volume 8.5 fL (7.4-10.4); Platelet Count 247 10^3/uL (150-450); Red Blood Count 4.45 10^6 /uL (4.18-5.48); Red Cell Distribution Width 15 % (10-15); White Blood Count 8.3 10^3/uL (3.5-10.8)
[2019-10-15] MEDS: Ketorolac INJ* 30 MG/ML 1 ML VIAL IV SCH (19:28)
[2019-10-15 19:38] LABS: BUN/Creatinine Ratio 36.6 (8-20); C Reactive Protein 9.66 mg/L (<8.01); Calcium 10.1 mg/dL (8.6-10.3); EGFR Non-African American 71.1 (>60); Potassium 4.6 mmol/L (3.5-5.0)
[2019-10-15] MEDS ORDERED: oxyCODONE SR TAB(*) 10 MG TAB.SR PO SCH (21:00)
--- NOTE | 2019-10-15 21:09 | HP ---
CC: Dr. Martita Davison * [facility] MEDICINE HISTORY AND PHYSICAL: DATE OF ADMISSION: 10/15/19 PRIMARY CARE PROVIDER: Dr. Martita Davison. ATTENDING PHYSICIAN: Dr. Benita Mendoza * (dictated provided by Reena King NP) . CHIEF COMPLAINT: Back pain. HISTORY OF PRESENT ILLNESS: Mr. Mehta is an 78-year-old male who presents to the hospital again today with concern for intractable back pain. The patient was admitted from 10/02/19 to 10/07/19 with concern for intractable back pain and I refer you to that documentation for complete details. In brief, the patient has a long-term history of low back pain due in part to ankylosing spondylitis, which had been reasonably well controlled. However a few weeks ago he began physical therapy as exercise had always been important for maintaining function and decreasing pain. However, he feels that he did some exercises that caused the new onset of significant severe pain. He was treated from 10/02/19 to 10/07/19 here at [facility] and stated he was feeling okay when he left, but by the next day, he was again having severe pain. He has been working with it as best as he could at home and working with his primary care physician. Unfortunately, his pain was so severe today that he had to come back to the emergency room again for treatment. He denies fever, chills, nausea, vomiting, diarrhea, chest pain, shortness of breath. He has had no fall or other traumatic injury. PAST MEDICAL HISTORY: 1. Low back pain. 2. Ankylosing spondylitis. 3. Hypertension. 4. Coronary artery disease. 5. Cardiac catheterization in June 2019 showing 30% to 40% stenosis in several arteries. 6. Nephrolithiasis. 7. Hypercholesterolemia. 8. GERD. 9. Depression. 10. Anxiety. 11. Macular degeneration. 12. Status post multiple excisions of melanoma. PAST SURGICAL HISTORY: 1. Glaucoma surgery. 2. Cataract surgery. 3. Total 9 hip surgeries. MEDICATIONS: Outpatient are: 1. Senna 1 tab p.o. at bedtime p.r.n. 2. Pravastatin 40 mg p.o. at bedtime. 3. MiraLAX 17 g p.o. daily p.r.n. 4. [place]-3 with fish oil 1000 mg p.o. daily. 5. Lutein Ocuvite 1 cap p.o. daily. 6. Probiotic 1 tab p.o. daily. 7. Feldene 20 mg p.o. daily. 8. Aspirin 81 mg p.o. daily. 9. Tylenol 650 mg p.o. q.4 hours p.r.n. 10. Alprazolam 0.25 mg p.o. t.i.d. p.r.n. 11. Pantoprazole 40 mg p.o. daily. 12. Nifedipine 60 mg p.o. daily. 13. Atenolol 50 mg p.o. q.p.m. 14. Oxycodone IR 10 mg p.o. q.4 hours p.r.n. 15. Clopidogrel 75 mg p.o. daily. 16. Clobetasol 1 application topically t.i.d. ALLERGIES: CODEINE, HYDROCODONE, MEPERIDINE. FAMILY HISTORY: Father of cancer of the intestine. Mother of old age. SOCIAL HISTORY: He denies tobacco or drug use. He drinks 1 glass of wine every night. 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 His , Latanya, is the healthcare proxy. He is a DNR. REVIEW OF SYSTEMS: A 14-point review of systems was completed with Mr. Mehta and all those not mentioned above were negative. PHYSICAL EXAMINATION GENERAL: Mr. Mehta is lying in the bed. He is no acute distress, but appears uncomfortable. VITAL SIGNS: Temperature 96.9, pulse rate 72, respiratory rate 16, O2 saturation 94% on room air, blood pressure 148/81. LUNGS: Clear to auscultation bilaterally with no accessory muscle use and good aeration. HEART: S1 and S2. No murmur, rub, or gallop. Regular. ABDOMEN: Soft and nontender with bowel sounds positive x4. EXTREMITIES: No cyanosis, no edema.. NEUROLOGIC: He is alert. He is oriented x3. He moves all extremities equally. There is no facial asymmetry or focal weakness. Extraocular movements are intact. SKIN: Intact. BACK: The patient has a bony lump at about the L1-L2 level, which is the level of his pain, midline on the back. DIAGNOSTIC STUDIES/LABORATORY DATA: Labs are pending. No imaging is done this admission, but the patient did have a lumbar spine CT on 10/02/19, which shows the following: Findings of ankylosing spondylitis versus inflammatory bowel disease, spinal spondylopathy with moderate multilevel degeneration including likely compression of bilateral L1 and L2 nerve roots, Bosniak type 1 and type 2 renal cysts. ASSESSMENT AND PLAN: Mr. Mehta is an 78-year-old male with past medical history of ankylosing spondylitis, who presents today to the hospital again with concern for intractable back pain. Our plans are for observation in the hospital for the followin. Back pain. The patient has been switched from methadone to oxycodone outpatient. I question whether the patient needed a stronger dose and perhaps an addition of a sustained release narcotic. Therefore, plan to add oxycodone SR 20 mg p.o. b.i.d. He will have oxycodone 10 mg IR q.4 hours and he will have also hydromorphone 0.5 mg q.4 hours p.r.n. pain. He will have prednisone 50 mg p.o. daily and he will have Toradol schedule for three doses and then can be switched to prn or a different NSAID. Plan for lumbar spine MRI. 2. Hypertension. Continue home meds. 3. DVT prophylaxis with SCDs given that he will need to be on ketorolac, though he is at low risk. 4. History of coronary artery disease. Continue aspirin and Plavix. 5. Code status is DNR and this was completed with the patient at the bedside. 6. Disposition to the medical floor. TIME SPENT: Approximately 60 minutes were spent on the admission of this patient, more than half the time spent with the patient at the bedside reviewing the events leading up to this hospitalization, performing the physical examination, and reviewing my plan of care. REENA KING NP [id number]/[facility] #: [id number] DEVIN
[2019-10-15] MEDS: oxyCODONE SR TAB(*) 20 MG TAB.SR PO SCH (21:31)
[2019-10-15] MEDS: HYDROmorphone INJ* 0.5 MG/0.5 ML SYRINGE IV PRN (22:11)
[2019-10-15] MEDS: Clobetasol 0.05% OINT* 30 GM TUBE TOPICAL SCH (23:14)
[2019-10-16] MEDS: oxyCODONE TAB* 5 MG TAB PO PRN ×2 (01:13→18:29)
[2019-10-16] MEDS: ALPRAZolam TAB* 0.25 MG PO PRN ×3 (01:13→18:30)
[2019-10-16] MEDS: Ketorolac INJ* 30 MG/ML 1 ML VIAL IV SCH ×2 (03:42→12:02)
[2019-10-16] MEDS: Pantoprazole TAB * 40 MG TAB PO SCH (10:06)
[2019-10-16] MEDS: oxyCODONE SR TAB(*) 20 MG TAB.SR PO SCH (10:06)
[2019-10-16] MEDS: Aspirin EC TAB* 81 MG TAB.EC PO SCH (10:06)
[2019-10-16] MEDS: NIFEdipine ER TAB* 30 MG PO SCH (10:06)
[2019-10-16] MEDS: Clopidogrel TAB* 75 MG PO SCH (10:06)
[2019-10-16] MEDS: Clobetasol 0.05% OINT* 30 GM TUBE TOPICAL SCH ×3 (10:08→21:52)
[2019-10-16] MEDS: HYDROmorphone INJ* 0.5 MG/0.5 ML SYRINGE IV PRN ×3 (10:11→21:38)
[2019-10-16] MEDS: Methadone TAB* 10 MG PO SCH ×3 (12:03→19:46)
[2019-10-16] MEDS: Atenolol TAB* 50 MG PO SCH (18:30)
[2019-10-16] MEDS: Calcium Carbonate CHEW TAB* 500 MG (TUMS) PO PRN (21:45)
[2019-10-16] MEDS ORDERED: Al Hydrox/Mg Hydrox/Simet LIQ* 30 ML UDC PO ONE (23:31)
[2019-10-17] MEDS: Calcium Carbonate CHEW TAB* 500 MG (TUMS) PO PRN (01:30)
[2019-10-17] MEDS: oxyCODONE TAB* 5 MG TAB PO PRN (04:10)
[2019-10-17] MEDS: HYDROmorphone INJ* 0.5 MG/0.5 ML SYRINGE IV PRN (09:03)
[2019-10-17] MEDS: ALPRAZolam TAB* 0.25 MG PO PRN ×3 (09:03→23:28)
[2019-10-17] MEDS: Methadone TAB* 10 MG PO SCH ×4 (09:03→21:11)
[2019-10-17] MEDS: Pantoprazole TAB * 40 MG TAB PO SCH (09:04)
[2019-10-17] MEDS: Clopidogrel TAB* 75 MG PO SCH (09:04)
[2019-10-17] MEDS: Aspirin EC TAB* 81 MG TAB.EC PO SCH (09:04)
[2019-10-17] MEDS: NIFEdipine ER TAB* 30 MG PO SCH (09:04)
[2019-10-17] MEDS: Clobetasol 0.05% OINT* 30 GM TUBE TOPICAL SCH ×3 (09:14→21:14)
[2019-10-17] MEDS ORDERED: Calcium Carbonate CHEW TAB* 500 MG (TUMS) ONE (09:35)
[2019-10-17] MEDS ORDERED: Calcium Carbonate CHEW TAB* 500 MG (TUMS) PO PRN (09:35)
[2019-10-17] MEDS ORDERED: Al Hydrox/Mg Hydrox/Simet LIQ* 30 ML UDC PO PRN (10:50)
[2019-10-17] MEDS ORDERED: Nitroglycerin TAB 0.4 MG* 0.4 MG TAB SL PRN (10:53)
[2019-10-17] MEDS: oxyCODONE TAB* 5 MG TAB PO SCH ×2 (13:04→18:40)
[2019-10-17] MEDS: Atenolol TAB* 50 MG PO SCH (17:22)
[2019-10-17] MEDS ORDERED: Magnesium Hydroxide LIQ* 30 ML UDC PO PRN (22:04)
[2019-10-17] MEDS ORDERED: oxyCODONE TAB* 5 MG TAB PO SCH (23:00)
[2019-10-18] MEDS: oxyCODONE TAB* 5 MG TAB PO SCH ×2 (03:16→08:13)
[2019-10-18] MEDS: HYDROmorphone INJ* 0.5 MG/0.5 ML SYRINGE IV PRN (06:33)
[2019-10-18 07:51] VITALS: BP 160/72
[2019-10-18] MEDS: Clopidogrel TAB* 75 MG PO SCH (08:13)
[2019-10-18] MEDS: NIFEdipine ER TAB* 30 MG PO SCH (08:13)
[2019-10-18] MEDS: Pantoprazole TAB * 40 MG TAB PO SCH (08:13)
[2019-10-18] MEDS: Aspirin EC TAB* 81 MG TAB.EC PO SCH (08:13)
[2019-10-18] MEDS: Clobetasol 0.05% OINT* 30 GM TUBE TOPICAL SCH (08:15)
[2019-10-18] MEDS: ALPRAZolam TAB* 0.25 MG PO PRN (10:12)
[2019-10-18] MEDS ORDERED: Methadone TAB* 10 MG PO SCH (11:00)
--- NOTE | 2019-10-18 12:46 | DS ---
DISCHARGE SUMMARY: DATE OF ADMISSION: 10/16/19 DATE OF DISCHARGE: 10/18/19 DISCHARGE DIAGNOSES: 1. Low back pain due to ankylosing spondylitis, spinal stenosis. 2. Coronary artery disease. 3. Hypertension. 4. Gastroesophageal reflux disease. 5. Hyperlipidemia. 6. History of anxiety and depression. 7. History of Celeste's thyroiditis. 8. 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 9. History of benign prostatic hypertrophy. 10. History of nephrolithiasis seen on CT scan in 2005. 11. Macular degeneration. 12. History of glaucoma. 13. History of melanoma. 14. Hiatus hernia. 15. Mild anemia. HISTORY: Nik Mehta is an 78-year-old man admitted with low back pain in the setting of chronic back pain due to ankylosing spondylitis. He had recently been hospitalized. Current admission was precipitated by change in medication regimen with the patient misunderstanding that new prescription for oxycodone was to be added on to his usual methadone rather than instead of. Please see the dictated admission note for details of the present of illness, past medical history, family history, social and personal history, review of systems, and physical examination. LABORATORY DATA: CBC 10/15/19: WBC 8.3, H and H 12.6/37, MCV 84, PLT 247,000. Chemistries: Sodium 140, potassium 4.6, chloride 104, CO2 of 30, BUN/ creatinine 37/1.01, glucose 126, calcium 10.1. C-reactive protein 9.66. IMAGING: Lumbar spine MRI on 10/16/19: Inflammatory changes at L1-2, central canal stenosis at L1-2, no epidural or paraspinous fluid collections visualized. Also noted was fusion involving L3 through S1, severe bilateral foraminal stenosis L1-2, mild right foraminal stenosis and [id number] left foraminal stenosis L2-3. HOSPITAL COURSE: The patient was initially seen in the emergency room. It was felt that he had severe pain, but no weakness or numbness of lower extremities. He was given 2 doses of morphine. Neurosurgeon, Dr. Queen, was consulted via telephone. It was felt that he was not an emergent candidate for surgery and probably a poor candidate overall. He received additional Valium and prednisone. He was admitted to the medical floor. It was discovered that he had inadvertently not been taking his methadone, thought oxycodone was a substitute for it. This was corrected by restarting his methadone and increasing his dose from 3 a day to 4 a day. Additionally, he was placed on oxycodone slow release, then that was stopped when methadone was restarted. He also received 10 mg of oxycodone every 4 hours. Initially, hydromorphone IV was ordered as well. He started back on prednisone 50 mg daily and he got 3 doses initially of Toradol on admission. He had MRI done as noted above. This was delayed until we could get the operative report from his previous glaucoma surgery. His usual medications for heart disease were continued. He had indigestion, treated with Tums and Maalox. At the time of discharge, he is being discharged home with improved symptoms. His condition is stable. Further discussion with regards to possible surgery will be held with Dr. Queen after he gets a chance to look at his MRI. DISCHARGE MEDICATIONS: At the time of discharge, his medications are as follows : 1. Acetaminophen 650 every 4 hours as needed for pain. 2. Maalox 30 mL q.4 hours p.r.n. indigestion. 3. Alprazolam 0.25 mg t.i.d. p.r.n. anxiety. 4. Aspirin 81 mg daily. 5. Atenolol 50 mg daily. 6. Clobetasol t.i.d. as needed. 7. Clopidogrel 75 mg daily. 8. Milk of Magnesia 30 mL b.i.d. p.r.n. constipation. 9. Methadone 10 mg 4 times a day to be given at 6 a.m., 11 a.m., 4 p.m., and 9 p.m. 10. Nifedipine XL 60 mg daily. 11. Nitroglycerin 0.4 mg q.5 minutes p.r.n. chest pain. 12. Oxycodone 10 mg at 3 a.m., 8 a.m., 1 p.m., 6 p.m., and 11 p.m., this can be skipped if he is not in pain. 13. Pantoprazole 40 mg daily. 14. MiraLAX 17 g daily. 15. Senna 1 at bedtime. 16. Dulcolax suppository as needed for constipation. 17. Tums as needed for indigestion. 18. Probiotic if he desires to take. 19. Ocuvite 1 daily. 20. Fish oil, can resume if he wants. 21. Feldene (piroxicam) 20 mg daily. 22. Pravastatin 40 mg daily. DIET: Usual. ACTIVITY: As tolerated. FOLLOWUP: Follow up with myself in 4 to 7 days. This will likely be done as a telephone followup because of the COVID-19 pandemic. [id number]/[facility] #: [id number] [facility]
== END 2019-10-18 12:00 | disposition home or self-care (01) | DRG 552 ==
LOC: ED 14:27 → MED 19:05 → OBSVTOIN 10-16 15:00
PROVIDERS: ADMIT Nurse Practitioner Acute Care; ATTEND Internal Medicine Geriatric Medicine
DX: M54.5 Low back pain (principal); M45.6 Ankylosing spondylitis lumbar region; K21.9 Gastro-esophageal reflux disease without esophagitis; E78.5 Hyperlipidemia, unspecified; F41.8 Other specified anxiety disorders; E06.3 Autoimmune thyroiditis; N40.0 Benign prostatic hyperplasia without lower urinary tract symptoms; H35.30 Unspecified macular degeneration; H40.9 Unspecified glaucoma; Z66 Do not resuscitate; K44.9 Diaphragmatic hernia without obstruction or gangrene; D64.9 Anemia, unspecified; Z96.649 Presence of unspecified artificial hip joint; M48.061 Spinal stenosis, lumbar region without neurogenic claudication; E78.00 Pure hypercholesterolemia, unspecified; Z85.820 Personal history of malignant melanoma of skin; Z79.82 Long term (current) use of aspirin; Z79.899 Other long term (current) drug therapy; Z88.5 Allergy status to narcotic agent; Z88.8 Allergy status to other drugs, medicaments and biological substances; Z80.0 Family history of malignant neoplasm of digestive organs
CPT/HCPCS: 36415; 72148; 80048; 85025; 86140; 96374; 96375; 96376; 99285; A9270-GY; J1170; J1885; J2270; J2405; J7512

== ENCOUNTER 2019-12-13 14:07 | Inpatient (IN) ==
[2019-12-13] MEDS ORDERED: Morphine 4 MG/ML VIAL (1 ml) IV ONE ×2 (14:32→15:55)
[2019-12-13 15:01] LABS: ABS Basophils 0.1 10^3/ul (0-0.2); ABS Eosinophils 0.1 10^3/ul (0-0.6); ABS Lymphocytes 1.1 10^3/ul (1.0-4.8); ABS Monocytes 0.9 10^3/ul (0-0.8); Eosinophil % 1.8 %; Hematocrit 37 % (42-52); Hemoglobin 12.3 g/dL (14.0-18.0); Lymphocyte % 13.7 %; Mean Corpuscular HGB Conc 34 g/dL (31-36); Mean Corpuscular Hemoglobin 27 pg (27-31); Mean Corpuscular Volume 81 fL (80-94); Mean Platelet Volume 8.5 fL (7.4-10.4); Platelet Count 285 10^3/uL (150-450); Red Blood Count 4.52 10^6 /uL (4.18-5.48); Red Cell Distribution Width 16 % (10-15); White Blood Count 8.3 10^3/uL (3.5-10.8)
[2019-12-13 15:25] LABS: Albumin 3.6 g/dL (3.2-5.2); Albumin/Globulin Ratio 1.5 (1-3); BUN/Creatinine Ratio 24.8 (8-20); C Reactive Protein 35.28 mg/L (<8.01); Calcium 9.6 mg/dL (8.6-10.3); EGFR African American 78.6 (>60); EGFR Non-African American 64.9 (>60); Globulin 2.4 g/dL (2-4); Potassium 4.5 mmol/L (3.5-5.0); Total Bilirubin 0.5 mg/dL (0.2-1.0)
[2019-12-13 16:11] LABS: Erythrocyte Sed Rate 26 mm/Hr (0-19)
[2019-12-13] MEDS ORDERED: Senna TAB 8.6 mg TAB PO PRN (18:58)
[2019-12-13 19:06] LABS: Urine Appearance Clear; Urine Bilirubin Negative (Negative); Urine Blood Negative (Negative); Urine Color Yellow; Urine Glucose Negative (Negative); Urine Ketones Negative (Negative); Urine Nitrite Negative (Negative); Urine Protein Negative (Negative); Urine Specific Gravity 1.012 (1.010-1.030); Urine Urobilinogen Negative (Negative)
[2019-12-13] MEDS ORDERED: Enoxaparin 40 MG/0.4 ML SYR(*) SUBCUT SCH (21:00)
[2019-12-14 13:00] LABS: ABS Basophils 0.1 10^3/ul (0-0.2); ABS Lymphocytes 1.6 10^3/ul (1.0-4.8); Eosinophil % 0.4 %; Hematocrit 38 % (42-52); Hemoglobin 12.3 g/dL (14.0-18.0); Lymphocyte % 13.8 %; Mean Corpuscular HGB Conc 32 g/dL (31-36); Mean Corpuscular Hemoglobin 26 pg (27-31); Mean Corpuscular Volume 81 fL (80-94); Mean Platelet Volume 8.2 fL (7.4-10.4); Platelet Count 317 10^3/uL (150-450); Red Blood Count 4.67 10^6 /uL (4.18-5.48); Red Cell Distribution Width 16 % (10-15); White Blood Count 11.4 10^3/uL (3.5-10.8)
[2019-12-14 13:19] LABS: BUN/Creatinine Ratio 22.7 (8-20); Calcium 9.4 mg/dL (8.6-10.3); EGFR African American 89.9 (>60); EGFR Non-African American 74.3 (>60); Magnesium 1.8 mg/dL (1.9-2.7); Potassium 3.9 mmol/L (3.5-5.0)
[2019-12-14] MEDS: Polyethylene Glycol 3350 17 GM PACKET PO SCH (14:05)
[2019-12-14] MEDS ORDERED: Magnesium Sulfate 2 gm BAG 2 GM/50 ML BAG IVPB ONE (17:17)
[2019-12-14] MEDS: Senna TAB 8.6 mg TAB PO SCH (21:19)
[2019-12-15 08:35] LABS: ABS Eosinophils 0.1 10^3/ul (0-0.6); Eosinophil % 0.6 %; Hematocrit 33 % (42-52); Hemoglobin 10.7 g/dL (14.0-18.0); Lymphocyte % 21.8 %; Mean Corpuscular HGB Conc 33 g/dL (31-36); Mean Corpuscular Hemoglobin 27 pg (27-31); Mean Corpuscular Volume 81 fL (80-94); Mean Platelet Volume 8.3 fL (7.4-10.4); Platelet Count 285 10^3/uL (150-450); Red Blood Count 4.05 10^6 /uL (4.18-5.48); Red Cell Distribution Width 16 % (10-15); White Blood Count 9.2 10^3/uL (3.5-10.8)
[2019-12-15 08:53] LABS: BUN/Creatinine Ratio 24.8 (8-20); C Reactive Protein 50.22 mg/L (<8.01); Calcium 8.5 mg/dL (8.6-10.3); EGFR African American 75.4 (>60); EGFR Non-African American 62.3 (>60); Magnesium 2.3 mg/dL (1.9-2.7); Potassium 3.5 mmol/L (3.5-5.0)
[2019-12-15] MEDS: Polyethylene Glycol 3350 17 GM PACKET PO SCH (09:37)
[2019-12-15] MEDS: Metoclopramide 5 MG/ML VIAL (10 mg) IV PRN (19:57)
[2019-12-15] MEDS: Senna TAB 8.6 mg TAB PO SCH (20:27)
[2019-12-16] MEDS: Polyethylene Glycol 3350 17 GM PACKET PO SCH (08:37)
[2019-12-16] MEDS: Metoclopramide 5 MG/ML VIAL (10 mg) IV PRN (13:19)
[2019-12-16] MEDS: Nystatin TOP POWDER 15 GM BTL TOPICAL SCH ×2 (17:08→21:36)
[2019-12-16] MEDS: Senna TAB 8.6 mg TAB PO SCH (21:36)
[2019-12-17 05:06] LABS: ABS Basophils 0.1 10^3/ul (0-0.2); ABS Eosinophils 0.2 10^3/ul (0-0.6); ABS Monocytes 0.9 10^3/ul (0-0.8); Eosinophil % 2.3 %; Hematocrit 35 % (42-52); Hemoglobin 11.7 g/dL (14.0-18.0); Lymphocyte % 33.6 %; Mean Corpuscular HGB Conc 34 g/dL (31-36); Mean Corpuscular Hemoglobin 27 pg (27-31); Mean Corpuscular Volume 80 fL (80-94); Mean Platelet Volume 7.6 fL (7.4-10.4); Platelet Count 332 10^3/uL (150-450); Red Blood Count 4.36 10^6 /uL (4.18-5.48); Red Cell Distribution Width 16 % (10-15); White Blood Count 8.8 10^3/uL (3.5-10.8)
[2019-12-17 05:26] LABS: Anion Gap 8 mmol/L (2-11); BUN/Creatinine Ratio 29.9 (8-20); Blood Urea Nitrogen 29 mg/dL (6-24); C Reactive Protein 15.29 mg/L (<8.01); CO2 Carbon Dioxide 32 mmol/L (22-32); Calcium 8.9 mg/dL (8.6-10.3); Chloride 101 mmol/L (101-111); EGFR African American 89.9 (>60); EGFR Non-African American 74.3 (>60); Glucose 91 mg/dL (70-100); Potassium 3.4 mmol/L (3.5-5.0); Sodium 141 mmol/L (135-145)
[2019-12-17] MEDS: Al Hydrox/Mg Hydrox/Simet LIQ 30 ML UDC PO PRN ×2 (08:39→22:46)
[2019-12-17] MEDS: Nystatin TOP POWDER 15 GM BTL TOPICAL SCH ×2 (08:41→21:05)
[2019-12-17] MEDS: Polyethylene Glycol 3350 17 GM PACKET PO SCH ×2 (08:42→21:05)
[2019-12-17 09:11] LABS: Troponin I 0.04 ng/mL (<0.03)
[2019-12-17 09:12] LABS: Magnesium 1.9 mg/dL (1.9-2.7)
[2019-12-17] MEDS: Metoclopramide 5 MG/ML VIAL (10 mg) IV PRN (09:34)
[2019-12-17 10:32] LABS: Troponin I 0.05 ng/mL (<0.03)
[2019-12-17 13:00] LABS: Troponin I 0.05 ng/mL (<0.03)
[2019-12-17] MEDS: Senna TAB 8.6 mg TAB PO SCH (21:04)
[2019-12-18] MEDS: Metoclopramide 5 MG/ML VIAL (10 mg) IV PRN ×2 (05:36→21:35)
[2019-12-18 06:23] LABS: Activated Partial Thrombo Time 32.4 seconds (26.0-38.0); INR 1.4 (0.82-1.09)
[2019-12-18] MEDS: Polyethylene Glycol 3350 17 GM PACKET PO SCH ×2 (08:40→20:29)
[2019-12-18] MEDS: Nystatin TOP POWDER 15 GM BTL TOPICAL SCH ×2 (08:40→20:30)
[2019-12-18] MEDS ORDERED: fentaNYL 100 mcg/2 ml 50 MCG/ML VIAL ONE (08:41)
[2019-12-18] MEDS ORDERED: Naloxone 0.4 mg VIAL 0.4 mg/ml 1 ml VIAL ONE (08:41)
[2019-12-18] MEDS ORDERED: Ondansetron 4 mg VIAL 2 MG/ML 2 ml VIAL ONE (09:33)
[2019-12-18] MEDS ORDERED: Cefepime 2 GM in Dextrose(*) 2 GM/50 ML BAG IV SCH (18:45)
[2019-12-18] MEDS ORDERED: Vancomycin(*) 1,250 MG in NS 0.9% 250 ml 250 ML IVPB ONE (19:00)
[2019-12-18] MEDS ORDERED: Vancomycin per Pharmacy 1 EA NOTE FOLLOW UP SCH (19:00)
[2019-12-18] MEDS: Senna TAB 8.6 mg TAB PO SCH (20:29)
[2019-12-19] MEDS: Metoclopramide 5 MG/ML VIAL (10 mg) IV PRN (04:28)
[2019-12-19] MEDS: Vancomycin(*) 1,000 MG in NS 0.9% 250 ml 250 ML IV SCH ×2 (05:38→18:21)
[2019-12-19 06:08] LABS: EGFR African American 100.6 (>60); EGFR Non-African American 83.1 (>60)
[2019-12-19] MEDS: Cefepime 2 GM in Dextrose(*) 2 GM/50 ML BAG IV SCH ×2 (07:40→20:24)
[2019-12-19 10:09] LABS: Calcium 8.8 mg/dL (8.6-10.3); Potassium 3.5 mmol/L (3.5-5.0)
[2019-12-19] MEDS: Polyethylene Glycol 3350 17 GM PACKET PO SCH ×2 (10:09→22:48)
[2019-12-19] MEDS: Nystatin TOP POWDER 15 GM BTL TOPICAL SCH ×2 (10:25→20:17)
[2019-12-19 11:36] LABS: TSH (Thyroid Stimulating Horm) 2.17 mcIU/mL (0.34-5.60)
[2019-12-19 11:38] LABS: Free T4 1.36 ng/dL (0.61-1.12)
[2019-12-19 11:47] LABS: Folate 16.96 ng/mL (>3.99)
[2019-12-19 13:15] LABS: BUN/Creatinine Ratio 26.1 (8-20)
[2019-12-19] MEDS: Senna TAB 8.6 mg TAB PO SCH (20:15)
[2019-12-20] MEDS ORDERED: Vancomycin Trough Check NOTE FOLLOW UP ONE (06:00)
[2019-12-20] MEDS: Vancomycin(*) 1,000 MG in NS 0.9% 250 ml 250 ML IV SCH ×2 (06:34→17:57)
[2019-12-20] MEDS: Cefepime 2 GM in Dextrose(*) 2 GM/50 ML BAG IV SCH ×2 (08:25→20:01)
[2019-12-20] MEDS: Polyethylene Glycol 3350 17 GM PACKET PO SCH ×2 (08:28→20:16)
[2019-12-20] MEDS: Nystatin TOP POWDER 15 GM BTL TOPICAL SCH ×2 (08:33→21:05)
[2019-12-20] MEDS: Magnesium Hydroxide LIQ 30 ML UDC PO PRN (14:48)
[2019-12-20] MEDS: Senna TAB 8.6 mg TAB PO SCH (20:24)
[2019-12-21] MEDS: Vancomycin(*) 1,000 MG in NS 0.9% 250 ml 250 ML IV SCH ×2 (05:40→18:20)
[2019-12-21 05:57] LABS: ABS Basophils 0.1 10^3/ul (0-0.2); ABS Eosinophils 0.5 10^3/ul (0-0.6); ABS Lymphocytes 2.6 10^3/ul (1.0-4.8); ABS Monocytes 1.1 10^3/ul (0-0.8); Eosinophil % 5.6 %; Hematocrit 35 % (42-52); Hemoglobin 11.7 g/dL (14.0-18.0); Lymphocyte % 27.2 %; Mean Corpuscular HGB Conc 33 g/dL (31-36); Mean Corpuscular Hemoglobin 27 pg (27-31); Mean Corpuscular Volume 80 fL (80-94); Mean Platelet Volume 8.5 fL (7.4-10.4); Platelet Count 301 10^3/uL (150-450); Red Blood Count 4.41 10^6 /uL (4.18-5.48); Red Cell Distribution Width 16 % (10-15); White Blood Count 9.6 10^3/uL (3.5-10.8)
[2019-12-21] MEDS: Cefepime 2 GM in Dextrose(*) 2 GM/50 ML BAG IV SCH ×2 (08:10→19:58)
[2019-12-21] MEDS: Polyethylene Glycol 3350 17 GM PACKET PO SCH ×2 (09:11→20:01)
[2019-12-21] MEDS: Nystatin TOP POWDER 15 GM BTL TOPICAL SCH ×2 (09:13→20:03)
[2019-12-21] MEDS: Potassium Chlor 20 meq TAB.ER PO SCH (10:48)
[2019-12-21] MEDS: clonazePAM 0.5 mg TAB (*) PO PRN (14:22)
[2019-12-21] MEDS: Senna TAB 8.6 mg TAB PO SCH (19:57)
[2019-12-22] MEDS: clonazePAM 0.5 mg TAB (*) PO PRN ×2 (05:59→20:20)
[2019-12-22] MEDS ORDERED: Vancomycin Trough Check NOTE FOLLOW UP ONE (06:00)
[2019-12-22 06:34] LABS: EGFR African American 96.8 (>60)
[2019-12-22 06:56] LABS: Vancomycin Trough 29.8 mcg/mL
[2019-12-22] MEDS: Vancomycin(*) 1,000 MG in NS 0.9% 250 ml 250 ML IV SCH (06:59)
[2019-12-22] MEDS: Cefepime 2 GM in Dextrose(*) 2 GM/50 ML BAG IV SCH (07:48)
[2019-12-22] MEDS: Polyethylene Glycol 3350 17 GM PACKET PO SCH ×2 (09:33→20:23)
[2019-12-22 10:25] LABS: Ceruloplasmin 31.9 mg/dL
[2019-12-22] MEDS: Potassium Chlor 20 meq TAB.ER PO SCH (13:06)
[2019-12-22] MEDS: Nystatin TOP POWDER 15 GM BTL TOPICAL SCH ×2 (15:36→20:25)
[2019-12-22] MEDS: cefTRIAXone(*) 2 GM ADDV.VIAL 2 GM in NS 0.9% 100 ml BAG 100 ML IVPB SCH (17:31)
[2019-12-22] MEDS ORDERED: ceFAZolin 2 GM PREMIX in ORs 2 GM/50 ML BAG IV SCH (18:00)
[2019-12-22] MEDS: Senna TAB 8.6 mg TAB PO SCH (20:21)
[2019-12-22 20:29] LABS: Copper Level 1.39 mcg/mL (0.75-1.45)
[2019-12-23] MEDS ORDERED: Vancomycin Random Level NOTE FOLLOW UP ONE (06:00)
[2019-12-23 06:52] LABS: EGFR African American 86.8 (>60); EGFR Non-African American 71.7 (>60)
[2019-12-23 06:58] LABS: Vancomycin Random 18.9 mcg/mL
[2019-12-23] MEDS: Potassium Chlor 20 meq TAB.ER PO SCH (07:39)
[2019-12-23] MEDS: Magnesium Hydroxide LIQ 30 ML UDC PO PRN ×2 (07:45→21:11)
[2019-12-23] MEDS: Nystatin TOP POWDER 15 GM BTL TOPICAL SCH ×2 (07:45→21:13)
[2019-12-23] MEDS: Polyethylene Glycol 3350 17 GM PACKET PO SCH ×3 (07:56→21:18)
[2019-12-23] MEDS: Vancomycin(*) 750 MG in NS 0.9% 250 ml 250 ML IVPB SCH ×2 (09:41→21:09)
[2019-12-23] MEDS: clonazePAM 0.5 mg TAB (*) PO PRN (09:41)
[2019-12-23] MEDS: cefTRIAXone(*) 2 GM ADDV.VIAL 2 GM in NS 0.9% 100 ml BAG 100 ML IVPB SCH (18:06)
[2019-12-23] MEDS: Senna TAB 8.6 mg TAB PO SCH (21:11)
[2019-12-24] MEDS: clonazePAM 0.5 mg TAB (*) PO PRN ×2 (06:44→16:42)
[2019-12-24] MEDS ORDERED: Vancomycin Random Level NOTE FOLLOW UP ONE (08:30)
[2019-12-24 08:47] LABS: EGFR African American 107.6 (>60); EGFR Non-African American 88.9 (>60)
[2019-12-24] MEDS: Polyethylene Glycol 3350 17 GM PACKET PO SCH ×2 (09:29→22:00)
[2019-12-24] MEDS: Potassium Chlor 20 meq TAB.ER PO SCH (09:30)
[2019-12-24 09:32] LABS: Vancomycin Random 22.9 mcg/mL
[2019-12-24] MEDS: Vancomycin(*) 750 MG in NS 0.9% 250 ml 250 ML IVPB SCH (10:48)
[2019-12-24] MEDS: Nystatin TOP POWDER 15 GM BTL TOPICAL SCH ×2 (10:48→22:00)
[2019-12-24] MEDS ORDERED: Vancomycin(*) 1,000 MG in NS 0.9% 250 ml 250 ML IV SCH (16:00)
[2019-12-24] MEDS: cefTRIAXone(*) 2 GM ADDV.VIAL 2 GM in NS 0.9% 100 ml BAG 100 ML IVPB SCH (21:02)
[2019-12-24] MEDS: Senna TAB 8.6 mg TAB PO SCH (22:00)
[2019-12-24] MEDS ORDERED: clonazePAM 0.5 mg TAB (*) PO PRN (22:02)
[2019-12-25] MEDS: Potassium Chlor 20 meq TAB.ER PO SCH (09:17)
[2019-12-25] MEDS: Polyethylene Glycol 3350 17 GM PACKET PO SCH (09:18)
[2019-12-25] MEDS: Magnesium Hydroxide LIQ 30 ML UDC PO PRN (09:19)
[2019-12-25] MEDS: Nystatin TOP POWDER 15 GM BTL TOPICAL SCH (09:20)
[2019-12-25 11:50] VITALS: BP 95/58
[2019-12-26] MEDS ORDERED: Vancomycin Trough Check NOTE FOLLOW UP ONE (15:30)
== END 2019-12-25 13:30 | DRG 477 ==
LOC: SSU 14:07 → ED 14:07 → SSU 12-14 23:13
PROVIDERS: ADMIT Internal Medicine; ATTEND Internal Medicine

== ENCOUNTER 2020-01-23 10:57 | Observation (INO) ==
[2020-01-23 11:51] LABS: ABS Eosinophils 0.2 10^3/ul (0-0.6); ABS Lymphocytes 1.5 10^3/ul (1.0-4.8); ABS Monocytes 0.8 10^3/ul (0-0.8); Albumin 3.3 g/dL (3.2-5.2); Albumin/Globulin Ratio 1.3 (1-3); BUN/Creatinine Ratio 31.7 (8-20); Calcium 9.1 mg/dL (8.6-10.3); EGFR African American 82.9 (>60); EGFR Non-African American 68.5 (>60); Eosinophil % 2.9 %; Globulin 2.5 g/dL (2-4); Hematocrit 29 % (42-52); Hemoglobin 9.7 g/dL (14.0-18.0); Lymphocyte % 18.1 %; Mean Corpuscular HGB Conc 33 g/dL (31-36); Mean Corpuscular Hemoglobin 26 pg (27-31); Mean Corpuscular Volume 80 fL (80-94); Mean Platelet Volume 8.4 fL (7.4-10.4); Nucleated Red Blood Cells % 0.1; Platelet Count 284 10^3/uL (150-450); Potassium 4.5 mmol/L (3.5-5.0); Red Blood Count 3.69 10^6 /uL (4.18-5.48); Red Cell Distribution Width 18 % (10-15); Total Bilirubin 0.3 mg/dL (0.2-1.0); Total Protein 5.8 g/dL (6.4-8.9); White Blood Count 8.2 10^3/uL (3.5-10.8)
[2020-01-23] MEDS ORDERED: Senna TAB 8.6 mg TAB PO PRN (14:22)
[2020-01-23] MEDS ORDERED: Magnesium Hydroxide LIQ 30 ML UDC PO PRN (14:22)
[2020-01-23] MEDS ORDERED: LIDO MOUTHWASH SWISH SWAL PRN (14:22)
[2020-01-23] MEDS ORDERED: NYST SWISH SWAL PRN (14:22)
[2020-01-23] MEDS ORDERED: MAGIC M W2 BEN SWISH SWAL PRN (14:22)
[2020-01-23] MEDS ORDERED: MAAL SWISH SWAL PRN (14:22)
[2020-01-23] MEDS ORDERED: Polyethylene Glycol 3350 17 GM PACKET PO PRN (14:29)
[2020-01-23 14:41] LABS: C Reactive Protein 58.56 mg/L (<8.01)
[2020-01-23] MEDS ORDERED: Vancomycin per Pharmacy 1 EA NOTE FOLLOW UP PRN (15:17)
[2020-01-23] MEDS ORDERED: Vancomycin(*) 1,000 MG in NS 0.9% 250 ml 250 ML IVPB ONE (15:30)
[2020-01-23 15:54] LABS: Vancomycin Trough 18.4 mcg/mL
[2020-01-23] MEDS: cefTRIAXone(*) 2 GM ADDV.VIAL 2 GM in NS 0.9% 100 ml BAG 100 ML IV SCH (16:20)
[2020-01-23] MEDS: Enoxaparin 80 MG/0.8 ML SYR(*) SUBCUT SCH (16:28)
[2020-01-23] MEDS: Nystatin TOP POWDER 15 GM BTL TOPICAL SCH (21:29)
[2020-01-24] MEDS: Enoxaparin 80 MG/0.8 ML SYR(*) SUBCUT SCH ×2 (03:41→15:39)
[2020-01-24 05:44] LABS: ABS Eosinophils 0.4 10^3/ul (0-0.6); ABS Lymphocytes 1.4 10^3/ul (1.0-4.8); ABS Monocytes 0.6 10^3/ul (0-0.8); Eosinophil % 6.2 %; Hematocrit 29 % (42-52); Hemoglobin 9.3 g/dL (14.0-18.0); Lymphocyte % 24.4 %; Mean Corpuscular HGB Conc 33 g/dL (31-36); Mean Corpuscular Hemoglobin 26 pg (27-31); Mean Corpuscular Volume 80 fL (80-94); Mean Platelet Volume 8.3 fL (7.4-10.4); Platelet Count 261 10^3/uL (150-450); Red Blood Count 3.55 10^6 /uL (4.18-5.48); Red Cell Distribution Width 19 % (10-15); White Blood Count 5.7 10^3/uL (3.5-10.8)
[2020-01-24 06:01] LABS: BUN/Creatinine Ratio 30.2 (8-20); EGFR African American 81.1 (>60); EGFR Non-African American 67.1 (>60); Potassium 4.4 mmol/L (3.5-5.0)
[2020-01-24] MEDS: Potassium Chlor 20 meq TAB.ER PO SCH (08:40)
[2020-01-24] MEDS: Nystatin TOP POWDER 15 GM BTL TOPICAL SCH ×3 (08:40→20:31)
[2020-01-24] MEDS: cefTRIAXone(*) 2 GM ADDV.VIAL 2 GM in NS 0.9% 100 ml BAG 100 ML IV SCH (15:33)
[2020-01-24] MEDS ORDERED: Vancomycin(*) 1,000 MG in NS 0.9% 250 ml 250 ML IV SCH (17:00)
[2020-01-25] MEDS: Enoxaparin 80 MG/0.8 ML SYR(*) SUBCUT SCH ×2 (03:46→15:15)
[2020-01-25 06:05] LABS: ABS Eosinophils 0.3 10^3/ul (0-0.6); ABS Lymphocytes 1.4 10^3/ul (1.0-4.8); ABS Monocytes 0.7 10^3/ul (0-0.8); Eosinophil % 5.4 %; Hematocrit 28 % (42-52); Hemoglobin 9.3 g/dL (14.0-18.0); Lymphocyte % 25.8 %; Mean Corpuscular HGB Conc 34 g/dL (31-36); Mean Corpuscular Hemoglobin 27 pg (27-31); Mean Corpuscular Volume 80 fL (80-94); Mean Platelet Volume 8.5 fL (7.4-10.4); Nucleated Red Blood Cells % 0.1; Platelet Count 250 10^3/uL (150-450); Red Blood Count 3.49 10^6 /uL (4.18-5.48); Red Cell Distribution Width 19 % (10-15); White Blood Count 5.6 10^3/uL (3.5-10.8)
[2020-01-25 06:24] LABS: Anion Gap 6 mmol/L (2-11); BUN/Creatinine Ratio 27.3 (8-20); Blood Urea Nitrogen 30 mg/dL (6-24); CO2 Carbon Dioxide 30 mmol/L (22-32); Chloride 109 mmol/L (101-111); EGFR African American 77.7 (>60); EGFR Non-African American 64.2 (>60); Glucose 92 mg/dL (70-100); Potassium 4.1 mmol/L (3.5-5.0); Sodium 145 mmol/L (135-145)
[2020-01-25 06:45] LABS: Ferritin 65.2 ng/mL (24-336)
[2020-01-25 07:00] LABS: % Iron Saturation 11 % (15-55); Iron 26 ug/dL (50-212); Total Iron Binding Capacity 246 mcg/dL (250-450); Transferrin 176 mg/dL (203-362)
[2020-01-25] MEDS: Potassium Chlor 20 meq TAB.ER PO SCH (08:54)
[2020-01-25] MEDS: Nystatin TOP POWDER 15 GM BTL TOPICAL SCH ×2 (12:41→16:58)
[2020-01-25] MEDS: cefTRIAXone(*) 2 GM ADDV.VIAL 2 GM in NS 0.9% 100 ml BAG 100 ML IV SCH (15:15)
[2020-01-25 15:52] VITALS: BP 119/85
[2020-01-26] MEDS ORDERED: Vancomycin Trough Check NOTE FOLLOW UP ONE (16:30)
== END 2020-01-25 15:00 ==
LOC: ED 10:57 → INTOOBSV 14:57 → MED 14:57
PROVIDERS: ADMIT Internal Medicine; ATTEND Internal Medicine

== ENCOUNTER 2020-03-13 15:42 | Inpatient (IN) ==
[2020-03-13] MEDS ORDERED: Ondansetron 4 mg VIAL 2 MG/ML 2 ml VIAL IV ONE (16:03)
[2020-03-13] MEDS ORDERED: Morphine 4 MG/ML VIAL (1 ml) IV ONE (16:03)
[2020-03-13] MEDS ORDERED: NS 0.9% 1000 ml BAG 1,000 ML IV ONE (16:03)
[2020-03-13 16:36] LABS: ABS Basophils 0.1 10^3/ul (0-0.2); ABS Eosinophils 0.2 10^3/ul (0-0.6); ABS Lymphocytes 1.6 10^3/ul (1.0-4.8); ABS Monocytes 0.7 10^3/ul (0-0.8); ABS Neutrophils 5.9 10^3/ul (1.5-7.7); Hematocrit 34 % (42-52); Hemoglobin 11.2 g/dL (14.0-18.0); Lymphocyte % 18.9 %; Mean Corpuscular HGB Conc 33 g/dL (31-36); Mean Corpuscular Hemoglobin 24 pg (27-31); Mean Corpuscular Volume 74 fL (80-94); Mean Platelet Volume 8.4 fL (7.4-10.4); Platelet Count 247 10^3/uL (150-450); Red Blood Count 4.62 10^6 /uL (4.18-5.48); Red Cell Distribution Width 18 % (10-15); White Blood Count 8.5 10^3/uL (3.5-10.8)
[2020-03-13] MEDS ORDERED: Ondansetron 4 mg VIAL 2 MG/ML 2 ml VIAL IV PRN (16:43)
[2020-03-13 16:53] LABS: Albumin 3.5 g/dL (3.2-5.2); Albumin/Globulin Ratio 1.6 (1-3); BUN/Creatinine Ratio 41.8 (8-20); C Reactive Protein 34.95 mg/L (<8.01); Calcium 9.4 mg/dL (8.6-10.3); Globulin 2.2 g/dL (2-4); Potassium 3.9 mmol/L (3.5-5.0); Total Bilirubin 0.4 mg/dL (0.2-1.0); Total Protein 5.7 g/dL (6.4-8.9)
[2020-03-13] MEDS ORDERED: NS 0.9% 1000 ml BAG 1,000 ML IV SCH (17:30)
[2020-03-13 17:56] LABS: Erythrocyte Sed Rate 16 mm/Hr (0-19)
[2020-03-13] MEDS ORDERED: cefTRIAXone 1 gm/50 mL NS BAG 1 GM/50 ML BAG IVPB SCH (18:00)
[2020-03-13] MEDS ORDERED: Vancomycin per Pharmacy 1 EA NOTE FOLLOW UP SCH (18:00)
[2020-03-13] MEDS ORDERED: Vancomycin 1,500 MG in NS 0.9% 250 ml 250 ML IVPB ONE (18:00)
[2020-03-13] MEDS: HYDROmorphone 1 MG/1 ML SYRINGE IV SLOW PU PRN (20:20)
[2020-03-13] MEDS: CMCS:Pravastatin 20 mg TAB (NF) PO SCH (22:14)
[2020-03-13] MEDS ORDERED: NS 0.9% 500 ml BAG 500 ML IV ONE (23:54)
[2020-03-14 07:09] LABS: ABS Eosinophils 0.2 10^3/ul (0-0.6); ABS Lymphocytes 1.4 10^3/ul (1.0-4.8); ABS Monocytes 0.7 10^3/ul (0-0.8); Eosinophil % 3.7 %; Hematocrit 33 % (42-52); Hemoglobin 10.5 g/dL (14.0-18.0); Lymphocyte % 21.7 %; Mean Corpuscular HGB Conc 32 g/dL (31-36); Mean Corpuscular Hemoglobin 24 pg (27-31); Mean Corpuscular Volume 75 fL (80-94); Mean Platelet Volume 8.8 fL (7.4-10.4); Platelet Count 222 10^3/uL (150-450); Red Blood Count 4.34 10^6 /uL (4.18-5.48); Red Cell Distribution Width 18 % (10-15); White Blood Count 6.3 10^3/uL (3.5-10.8)
[2020-03-14 07:27] LABS: BUN/Creatinine Ratio 37.3 (8-20); C Reactive Protein 38.04 mg/L (<8.01); EGFR African American 71.7 (>60); EGFR Non-African American 59.2 (>60); Magnesium 1.9 mg/dL (1.9-2.7); Potassium 3.7 mmol/L (3.5-5.0)
[2020-03-14] MEDS ORDERED: Vancomycin 1,000 MG in NS 0.9% 250 ml 250 ML IV SCH (09:00)
[2020-03-14] MEDS: HYDROmorphone 1 MG/1 ML SYRINGE IV SLOW PU PRN ×2 (09:14→20:09)
[2020-03-14 10:52] LABS: INR 1.95 (0.82-1.09)
[2020-03-14 13:55] LABS: Urine Appearance Clear; Urine Bilirubin Negative (Negative); Urine Blood Negative (Negative); Urine Color Yellow; Urine Glucose Negative (Negative); Urine Ketones Negative (Negative); Urine Nitrite Negative (Negative); Urine Protein Negative (Negative); Urine Specific Gravity 1.011 (1.010-1.030); Urine Urobilinogen Negative (Negative)
[2020-03-14] MEDS ORDERED: Naloxone 0.4 mg VIAL 0.4 mg/ml 1 ml VIAL ONE (13:59)
[2020-03-14] MEDS ORDERED: fentaNYL 100 mcg/2 ml 50 MCG/ML VIAL ONE (13:59)
[2020-03-14] MEDS: CMCS:Pravastatin 20 mg TAB (NF) PO SCH (21:30)
[2020-03-15] MEDS: HYDROmorphone 1 MG/1 ML SYRINGE IV SLOW PU PRN (08:38)
[2020-03-15] MEDS ORDERED: NS 0.9% 500 ml BAG 500 ML IV ONE (11:46)
[2020-03-15 18:44] LABS: Magnesium 1.8 mg/dL (1.9-2.7)
[2020-03-15 20:29] LABS: Vitamin D Total 25(OH) 34.7 ng/mL (20-50)
[2020-03-15] MEDS: CMCS:Pravastatin 20 mg TAB (NF) PO SCH (20:55)
[2020-03-16] MEDS ORDERED: Vancomycin Trough Check NOTE FOLLOW UP ONE (08:30)
[2020-03-16 09:13] LABS: ABS Eosinophils 0.3 10^3/ul (0-0.6); ABS Lymphocytes 2.3 10^3/ul (1.0-4.8); ABS Monocytes 0.6 10^3/ul (0-0.8); ABS Neutrophils 3.5 10^3/ul (1.5-7.7); Eosinophil % 5.1 %; Hematocrit 35 % (42-52); Hemoglobin 11.1 g/dL (14.0-18.0); Lymphocyte % 33.3 %; Mean Corpuscular HGB Conc 32 g/dL (31-36); Mean Corpuscular Hemoglobin 24 pg (27-31); Mean Corpuscular Volume 74 fL (80-94); Mean Platelet Volume 8.9 fL (7.4-10.4); Nucleated Red Blood Cells % 0.1; Platelet Count 248 10^3/uL (150-450); Red Blood Count 4.64 10^6 /uL (4.18-5.48); Red Cell Distribution Width 19 % (10-15); White Blood Count 6.8 10^3/uL (3.5-10.8)
[2020-03-16 09:29] LABS: BUN/Creatinine Ratio 37.1 (8-20); Calcium 9.1 mg/dL (8.6-10.3); EGFR African American 73.1 (>60); EGFR Non-African American 60.4 (>60); Potassium 3.7 mmol/L (3.5-5.0)
[2020-03-16] MEDS ORDERED: Magnesium Hydroxide LIQ 30 ML UDC PO PRN (11:20)
[2020-03-16] MEDS ORDERED: Senna TAB 8.6 mg TAB PO PRN (11:20)
[2020-03-16] MEDS: oxyCODONE/Acetamin 5/325 mg TAB PO PRN ×2 (12:50→17:21)
[2020-03-16] MEDS: CMCS:Pravastatin 20 mg TAB (NF) PO SCH (20:53)
[2020-03-17] MEDS: Polyethylene Glycol 3350 17 GM PACKET PO SCH (07:52)
[2020-03-17] MEDS: oxyCODONE/Acetamin 5/325 mg TAB PO PRN ×3 (08:10→18:26)
[2020-03-17] MEDS ORDERED: Magnesium Sulfate 2 gm BAG 2 GM/50 ML BAG IVPB ONE (09:00)
[2020-03-17 16:59] LABS: HLA B27 Positive
[2020-03-17 18:36] LABS: Cyclic Citrullinated Peptide <15.6 U
[2020-03-17] MEDS: CMCS:Pravastatin 20 mg TAB (NF) PO SCH (20:36)
[2020-03-18] MEDS: Polyethylene Glycol 3350 17 GM PACKET PO SCH (08:09)
[2020-03-18] MEDS: oxyCODONE/Acetamin 5/325 mg TAB PO PRN ×3 (10:05→23:54)
[2020-03-18] MEDS: CMCS:Pravastatin 20 mg TAB (NF) PO SCH (20:06)
[2020-03-19] MEDS: Polyethylene Glycol 3350 17 GM PACKET PO SCH (08:25)
[2020-03-19] MEDS: CMCS:Pravastatin 20 mg TAB (NF) PO SCH (21:23)
[2020-03-20] MEDS: Polyethylene Glycol 3350 17 GM PACKET PO SCH (09:36)
[2020-03-20] MEDS: CMCS:Pravastatin 20 mg TAB (NF) PO SCH (20:48)
[2020-03-20] MEDS: Nystatin TOP POWDER 15 GM BTL TOPICAL SCH (21:45)
[2020-03-21] MEDS: Polyethylene Glycol 3350 17 GM PACKET PO SCH (08:43)
[2020-03-21] MEDS: Nystatin TOP POWDER 15 GM BTL TOPICAL SCH ×2 (08:45→15:01)
[2020-03-21 15:42] VITALS: BP 105/59
[2020-03-29 11:12] LABS: SLL Result Summary Negative; SLL Tissue ID CN20-860-1
== END 2020-03-21 17:40 | disposition home or self-care (01) | DRG 477 ==
LOC: MED 15:42 → ED 15:42 → MED 18:39
PROVIDERS: ADMIT Internal Medicine; ATTEND Student in an Organized Health Care Education/Training Program

== ENCOUNTER 2020-07-01 17:56 | Inpatient (IN) ==
[2020-07-01 19:45] LABS: ABS Eosinophils 0.2 10^3/ul (0-0.6); ABS Lymphocytes 1.7 10^3/ul (1.0-4.8); ABS Monocytes 0.9 10^3/ul (0-0.8); ABS Neutrophils 5.4 10^3/ul (1.5-7.7); Eosinophil % 2.7 %; Hematocrit 30 % (42-52); Hemoglobin 9.7 g/dL (14.0-18.0); Lymphocyte % 20.6 %; Mean Corpuscular HGB Conc 32 g/dL (31-36); Mean Corpuscular Hemoglobin 25 pg (27-31); Mean Corpuscular Volume 78 fL (80-94); Mean Platelet Volume 8.6 fL (7.4-10.4); Platelet Count 239 10^3/uL (150-450); Red Blood Count 3.85 10^6 /uL (4.18-5.48); Red Cell Distribution Width 20 % (10-15); White Blood Count 8.2 10^3/uL (3.5-10.8)
[2020-07-01 19:53] LABS: INR 2.35 (0.82-1.09)
[2020-07-01 19:58] LABS: Influenza A Molecular Negative (Negative); Influenza B Molecular Negative (Negative)
[2020-07-01 20:02] LABS: ALT 29 U/L (7-52); AST 28 U/L (13-39); Albumin/Globulin Ratio 2.4 (1-3); Alkaline Phosphatase 189 U/L (34-104); Anion Gap 8 mmol/L (2-11); BUN/Creatinine Ratio 39.6 (8-20); Blood Urea Nitrogen 63 mg/dL (6-24); C Reactive Protein 5.23 mg/L (<8.01); CO2 Carbon Dioxide 30 mmol/L (22-32); Calcium 9.1 mg/dL (8.6-10.3); Chloride 104 mmol/L (101-111); EGFR African American 50.8 (>60); Globulin 1.7 g/dL (2-4); Glucose 105 mg/dL (70-100); Potassium 4.6 mmol/L (3.5-5.0); Sodium 142 mmol/L (135-145); Total Protein 5.7 g/dL (6.4-8.9)
[2020-07-01 20:08] LABS: Troponin I 0.04 ng/mL (<0.03)
[2020-07-01 20:16] LABS: Urine Appearance Clear; Urine Bilirubin Negative (Negative); Urine Blood Negative (Negative); Urine Color Straw; Urine Glucose Negative (Negative); Urine Ketones Negative (Negative); Urine Nitrite Negative (Negative); Urine Protein Negative (Negative); Urine Specific Gravity 1.008 (1.010-1.030); Urine Urobilinogen Negative (Negative)
[2020-07-02] MEDS: Furosemide 40 mg/4 ml IV VIAL IV SLOW PU SCH ×2 (00:55→08:45)
[2020-07-02 02:17] LABS: Troponin I 0.04 ng/mL (<0.03)
[2020-07-02 05:46] LABS: GGTP 24 U/L (9-64.0)
[2020-07-02 06:32] LABS: ABS Eosinophils 0.4 10^3/ul (0-0.6); ABS Lymphocytes 1.8 10^3/ul (1.0-4.8); ABS Monocytes 1.1 10^3/ul (0-0.8); ABS Neutrophils 4.7 10^3/ul (1.5-7.7); Eosinophil % 4.6 %; Hematocrit 28 % (42-52); Hemoglobin 8.9 g/dL (14.0-18.0); Lymphocyte % 22.3 %; Mean Corpuscular HGB Conc 32 g/dL (31-36); Mean Corpuscular Hemoglobin 25 pg (27-31); Mean Corpuscular Volume 78 fL (80-94); Mean Platelet Volume 8.5 fL (7.4-10.4); Platelet Count 221 10^3/uL (150-450); Red Blood Count 3.56 10^6 /uL (4.18-5.48); Red Cell Distribution Width 20 % (10-15)
[2020-07-02 06:44] LABS: BUN/Creatinine Ratio 38.3 (8-20); Calcium 8.4 mg/dL (8.6-10.3); EGFR African American 52.7 (>60); EGFR Non-African American 43.6 (>60); Potassium 3.8 mmol/L (3.5-5.0)
[2020-07-02] MEDS: Polyethylene Glycol 3350 17 GM PACKET PO SCH (08:54)
[2020-07-02] MEDS ORDERED: Furosemide 40 mg/4 ml IV VIAL IV SCH ×2 (10:00→21:00)
[2020-07-02] MEDS: Furosemide 40 mg/4 ml IV VIAL IV SCH (20:11)
[2020-07-03 06:16] LABS: ABS Eosinophils 0.5 10^3/ul (0-0.6); ABS Lymphocytes 1.8 10^3/ul (1.0-4.8); ABS Monocytes 0.9 10^3/ul (0-0.8); ABS Neutrophils 3.8 10^3/ul (1.5-7.7); Eosinophil % 6.4 %; Hematocrit 29 % (42-52); Hemoglobin 9.1 g/dL (14.0-18.0); Lymphocyte % 25.7 %; Mean Corpuscular HGB Conc 32 g/dL (31-36); Mean Corpuscular Hemoglobin 25 pg (27-31); Mean Corpuscular Volume 78 fL (80-94); Mean Platelet Volume 8.2 fL (7.4-10.4); Platelet Count 216 10^3/uL (150-450); Red Blood Count 3.66 10^6 /uL (4.18-5.48); Red Cell Distribution Width 20 % (10-15)
[2020-07-03 06:34] LABS: BUN/Creatinine Ratio 39.4 (8-20); Calcium 8.4 mg/dL (8.6-10.3); EGFR Non-African American 52.1 (>60); Potassium 3.6 mmol/L (3.5-5.0)
[2020-07-03] MEDS: Furosemide 40 mg/4 ml IV VIAL IV SCH ×2 (08:51→16:42)
[2020-07-03] MEDS: Polyethylene Glycol 3350 17 GM PACKET PO SCH (08:52)
[2020-07-03 15:36] LABS: C Reactive Protein 4.04 mg/L (<8.01)
[2020-07-04 08:14] LABS: ABS Eosinophils 0.4 10^3/ul (0-0.6); ABS Lymphocytes 1.8 10^3/ul (1.0-4.8); ABS Monocytes 0.9 10^3/ul (0-0.8); ABS Neutrophils 4.5 10^3/ul (1.5-7.7); BUN/Creatinine Ratio 32.5 (8-20); Calcium 8.8 mg/dL (8.6-10.3); EGFR African American 66.5 (>60); EGFR Non-African American 54.9 (>60); Eosinophil % 5.7 %; Hematocrit 30 % (42-52); Hemoglobin 9.5 g/dL (14.0-18.0); Lymphocyte % 23.3 %; Mean Corpuscular HGB Conc 32 g/dL (31-36); Mean Corpuscular Hemoglobin 25 pg (27-31); Mean Corpuscular Volume 78 fL (80-94); Mean Platelet Volume 8.5 fL (7.4-10.4); Platelet Count 225 10^3/uL (150-450); Potassium 3.5 mmol/L (3.5-5.0); Red Cell Distribution Width 20 % (10-15); White Blood Count 7.6 10^3/uL (3.5-10.8)
[2020-07-04] MEDS: Furosemide 40 mg/4 ml IV VIAL IV SCH ×2 (09:01→17:44)
[2020-07-04] MEDS: Polyethylene Glycol 3350 17 GM PACKET PO SCH (09:01)
[2020-07-04 15:16] VITALS: BP 144/68
== END 2020-07-04 17:15 | disposition home or self-care (01) | DRG 292 ==
LOC: ED 17:56 → MED 17:56 → OBSVTOIN 23:46 → MED 07-02 01:39
PROVIDERS: ADMIT Internal Medicine; ATTEND Internal Medicine

== ENCOUNTER 2020-12-13 18:24 | Inpatient (IN) ==
[2020-12-13 19:19] LABS: ALT 11 U/L (7-52); AST 13 U/L (13-39); Albumin 3.5 g/dL (3.2-5.2); Albumin/Globulin Ratio 2.3 (1-3); Alkaline Phosphatase 169 U/L (34-104); Blood Urea Nitrogen 105 mg/dL (6-24); Calcium 8.4 mg/dL (8.6-10.3); Chloride 108 mmol/L (101-111); EGFR African American 39.6 (>60); EGFR Non-African American 32.7 (>60); Globulin 1.5 g/dL (2-4); Glucose 108 mg/dL (70-100); Magnesium 2.4 mg/dL (1.9-2.7); Sodium 144 mmol/L (135-145)
[2020-12-13 19:20] LABS: Hematocrit 14 % (42-52); Hemoglobin 4.4 g/dL (14.0-18.0); Mean Corpuscular HGB Conc 32 g/dL (31-36); Mean Corpuscular Hemoglobin 25 pg (27-31); Mean Corpuscular Volume 79 fL (80-94); Mean Platelet Volume 8.3 fL (7.4-10.4); Platelet Count 199 10^3/uL (150-450); Red Blood Count 1.77 10^6 /uL (4.18-5.48); Red Cell Distribution Width 20 % (10-15); White Blood Count 10.7 10^3/uL (3.5-10.8)
[2020-12-13 19:21] LABS: Potassium 5.5 mmol/L (3.5-5.0)
[2020-12-13 20:08] LABS: Polychromasia 1+
[2020-12-13 20:10] LABS: Microcytosis 1+
[2020-12-13 20:11] LABS: ABS Eosinophils 0.3 10^3/ul (0-0.6); ABS Lymphocytes 1.7 10^3/ul (1.0-4.8); ABS Neutrophils 7.6 10^3/ul (1.5-7.7); Eosinophil % 3.1 %; Lymphocyte % 15.9 %; Nucleated Red Blood Cells % 0.4
[2020-12-13 20:34] LABS: Troponin I 0.03 ng/mL (<0.03)
[2020-12-13 21:03] LABS: Urine Appearance Clear; Urine Bacteria Absent (Absent); Urine Bilirubin Negative (Negative); Urine Blood Negative (Negative); Urine Color Yellow; Urine Glucose Negative (Negative); Urine Ketones Negative (Negative); Urine Nitrite Negative (Negative); Urine Protein Negative (Negative); Urine Red Blood Cell Trace(0-2/hpf) (Absent); Urine Specific Gravity 1.009 (1.002-1.030); Urine Squamous Epithelial Cell Present (Absent); Urine Urobilinogen Negative (Negative); Urine White Blood Cell Trace(0-5/hpf) (Absent)
[2020-12-13] MEDS ORDERED: NS 0.9% 500 ml BAG 500 ML IV ONE (21:25)
[2020-12-13 21:30] LABS: LDH 136 U/L (140-271)
[2020-12-13 22:04] LABS: Anion Gap 9 mmol/L (2-11); CO2 Carbon Dioxide 27 mmol/L (22-32)
[2020-12-13 22:46] LABS: Activated Partial Thrombo Time 33.8 seconds (26.0-38.0); INR 2.37 (0.82-1.09)
[2020-12-13] MEDS ORDERED: diPHENhydraMINE IV 50 MG/ML 1 ml VIAL (BENADRYL) SLOW PUSH ONE (23:26)
[2020-12-14] MEDS: Cholecalciferol (VIT D3) 1,000 unit TAB PO SCH ×3 (01:01→21:52)
[2020-12-14] MEDS: Pantoprazole VIAL 40 MG VIAL IV SCH ×3 (01:33→21:54)
[2020-12-14 08:17] LABS: ABS Basophils 0.1 10^3/ul (0-0.2); ABS Eosinophils 0.4 10^3/ul (0-0.6); ABS Monocytes 0.7 10^3/ul (0-0.8); ABS Neutrophils 6.7 10^3/ul (1.5-7.7); Eosinophil % 3.8 %; Hematocrit 18 % (42-52); Hemoglobin 6.2 g/dL (14.0-18.0); Lymphocyte % 19.8 %; Mean Corpuscular HGB Conc 34 g/dL (31-36); Mean Corpuscular Hemoglobin 27 pg (27-31); Mean Corpuscular Volume 79 fL (80-94); Mean Platelet Volume 8.3 fL (7.4-10.4); Nucleated Red Blood Cells % 0.3; Platelet Count 181 10^3/uL (150-450); Red Blood Count 2.32 10^6 /uL (4.18-5.48); Red Cell Distribution Width 20 % (10-15); White Blood Count 9.9 10^3/uL (3.5-10.8)
[2020-12-14 08:30] LABS: Anion Gap 3 mmol/L (2-11); Blood Urea Nitrogen 103 mg/dL (6-24); CO2 Carbon Dioxide 30 mmol/L (22-32); Calcium 8.6 mg/dL (8.6-10.3); Chloride 111 mmol/L (101-111); EGFR African American 38.7 (>60); Glucose 92 mg/dL (70-100); Potassium 4.9 mmol/L (3.5-5.0); Sodium 144 mmol/L (135-145)
[2020-12-14 08:35] LABS: Troponin I 0.04 ng/mL (<0.03)
[2020-12-14] MEDS ORDERED: PIROXICAM 10 MG PO SCH (09:00)
[2020-12-14 12:57] LABS: Hematocrit 18 % (42-52); Hemoglobin 5.7 g/dL (14.0-18.0)
[2020-12-14] MEDS ORDERED: cefTRIAXone 1 gm/50 mL NS BAG 1 GM/50 ML BAG IVPB SCH ×2 (14:00→15:00)
[2020-12-14 14:29] LABS: C Reactive Protein 10.71 mg/L (<8.01)
[2020-12-14] MEDS: Ampicillin ADVAN 2 GM in NS 0.9% 100 ML 100 ML IVPB SCH ×2 (16:31→21:54)
[2020-12-14] MEDS: CMCS: Pravastatin 20 mg TAB (NF) PO SCH (17:29)
[2020-12-14] MEDS ORDERED: CMCS: Pravastatin 20 mg TAB (NF) PO SCH (18:00)
[2020-12-14 19:52] LABS: Hematocrit 21 % (42-52); Hemoglobin 6.8 g/dL (14.0-18.0)
[2020-12-14] MEDS ORDERED: diPHENhydraMINE IV 50 MG/ML 1 ml VIAL (BENADRYL) IV ONE (22:49)
[2020-12-15] MEDS: Ampicillin ADVAN 2 GM in NS 0.9% 100 ML 100 ML IVPB SCH ×4 (04:16→21:23)
[2020-12-15 04:57] LABS: Hematocrit 24 % (42-52); Hemoglobin 7.8 g/dL (14.0-18.0)
[2020-12-15 05:15] LABS: Calcium 8.3 mg/dL (8.6-10.3); EGFR African American 40.1 (>60); EGFR Non-African American 33.1 (>60); Potassium 4.9 mmol/L (3.5-5.0)
[2020-12-15] MEDS: Pantoprazole VIAL 40 MG VIAL IV SCH ×2 (10:39→21:19)
[2020-12-15] MEDS ORDERED: NS 0.9% 500 ml BAG 500 ML IV ONE (11:42)
[2020-12-15] MEDS: Cholecalciferol (VIT D3) 1,000 unit TAB PO SCH ×2 (11:47→21:23)
[2020-12-15 12:38] LABS: Hematocrit 24 % (42-52); Hemoglobin 7.8 g/dL (14.0-18.0)
[2020-12-15] MEDS ORDERED: fentaNYL 100 mcg/2 ml 50 MCG/ML VIAL ONE (15:03)
[2020-12-15] MEDS ORDERED: Midazolam 10 mg/10 ml VIAL 1 mg/ml 10 ml VIAL (10 mg) ONE (15:03)
[2020-12-15] MEDS ORDERED: PEG 3000 GI LAVAGE 1 GALLON PO ONE (16:00)
[2020-12-15] MEDS: CMCS: Pravastatin 20 mg TAB (NF) PO SCH (21:22)
[2020-12-16 00:08] LABS: Hematocrit 26 % (42-52); Hemoglobin 8.5 g/dL (14.0-18.0)
[2020-12-16] MEDS: Ampicillin ADVAN 2 GM in NS 0.9% 100 ML 100 ML IVPB SCH ×4 (01:54→21:15)
[2020-12-16] MEDS ORDERED: PEG 3000 GI LAVAGE 1 GALLON PO ONE (06:00)
[2020-12-16 06:28] LABS: Hematocrit 24 % (42-52); Hemoglobin 7.6 g/dL (14.0-18.0); Mean Corpuscular HGB Conc 31 g/dL (31-36); Mean Corpuscular Hemoglobin 27 pg (27-31); Mean Corpuscular Volume 85 fL (80-94); Mean Platelet Volume 8.3 fL (7.4-10.4); Platelet Count 180 10^3/uL (150-450); Red Blood Count 2.86 10^6 /uL (4.18-5.48); Red Cell Distribution Width 21 % (10-15); White Blood Count 6.2 10^3/uL (3.5-10.8)
[2020-12-16 07:34] LABS: Calcium 8.5 mg/dL (8.6-10.3); Potassium 4.6 mmol/L (3.5-5.0)
[2020-12-16 07:39] LABS: EGFR African American 46.6 (>60); EGFR Non-African American 38.5 (>60)
[2020-12-16] MEDS: Cholecalciferol (VIT D3) 1,000 unit TAB PO SCH ×2 (08:04→21:15)
[2020-12-16] MEDS: Pantoprazole VIAL 40 MG VIAL IV SCH (08:05)
[2020-12-16] MEDS ORDERED: NS 0.45% 1000 ml BAG 1,000 ML IV SCH (09:00)
[2020-12-16 11:19] LABS: Hematocrit 27 % (42-52); Hemoglobin 8.3 g/dL (14.0-18.0)
[2020-12-16 13:24] LABS: Body Fluid Source Synovial Fluid
[2020-12-16] MEDS ORDERED: Midazolam 10 mg/10 ml VIAL 1 mg/ml 10 ml VIAL (10 mg) ONE (14:45)
[2020-12-16] MEDS ORDERED: fentaNYL 100 mcg/2 ml 50 MCG/ML VIAL ONE (14:45)
[2020-12-16 17:21] LABS: Body Fluid Mono 47 %; Body Fluid NRBC 1; Body Fluid Other Cells 1
[2020-12-16] MEDS: CMCS: Pravastatin 20 mg TAB (NF) PO SCH (17:44)
[2020-12-16 23:06] LABS: Hematocrit 23 % (42-52); Hemoglobin 7.5 g/dL (14.0-18.0)
[2020-12-17] MEDS: Ampicillin ADVAN 2 GM in NS 0.9% 100 ML 100 ML IVPB SCH ×4 (03:06→20:55)
[2020-12-17 04:39] LABS: Hematocrit 24 % (42-52); Hemoglobin 7.3 g/dL (14.0-18.0); Mean Corpuscular HGB Conc 31 g/dL (31-36); Mean Corpuscular Hemoglobin 27 pg (27-31); Mean Corpuscular Volume 85 fL (80-94); Mean Platelet Volume 7.9 fL (7.4-10.4); Platelet Count 183 10^3/uL (150-450); Red Blood Count 2.78 10^6 /uL (4.18-5.48); Red Cell Distribution Width 21 % (10-15); White Blood Count 5.6 10^3/uL (3.5-10.8)
[2020-12-17 04:58] LABS: Calcium 8.2 mg/dL (8.6-10.3); EGFR African American 47.2 (>60)
[2020-12-17] MEDS: Cholecalciferol (VIT D3) 1,000 unit TAB PO SCH ×2 (07:59→20:58)
[2020-12-17] MEDS: CMCS: Pravastatin 20 mg TAB (NF) PO SCH (17:17)
[2020-12-17] MEDS: GLUCOSAMINE PO SCH (20:59)
[2020-12-18] MEDS: Ampicillin ADVAN 2 GM in NS 0.9% 100 ML 100 ML IVPB SCH ×4 (02:36→21:35)
[2020-12-18 05:40] LABS: ABS Basophils 0.1 10^3/ul (0-0.2); ABS Eosinophils 0.6 10^3/ul (0-0.6); ABS Lymphocytes 1.7 10^3/ul (1.0-4.8); ABS Monocytes 0.8 10^3/ul (0-0.8); ABS Neutrophils 3.8 10^3/ul (1.5-7.7); Eosinophil % 8.8 %; Hematocrit 24 % (42-52); Hemoglobin 7.8 g/dL (14.0-18.0); Lymphocyte % 24.3 %; Mean Corpuscular HGB Conc 32 g/dL (31-36); Mean Corpuscular Hemoglobin 28 pg (27-31); Mean Corpuscular Volume 86 fL (80-94); Mean Platelet Volume 7.9 fL (7.4-10.4); Nucleated Red Blood Cells % 0.2; Platelet Count 155 10^3/uL (150-450); Red Blood Count 2.82 10^6 /uL (4.18-5.48); Red Cell Distribution Width 21 % (10-15)
[2020-12-18 05:45] LABS: INR 1.27 (0.82-1.09)
[2020-12-18 05:58] LABS: Calcium 8.3 mg/dL (8.6-10.3); EGFR Non-African American 43.8 (>60)
[2020-12-18] MEDS: Cholecalciferol (VIT D3) 1,000 unit TAB PO SCH ×2 (08:10→21:35)
[2020-12-18] MEDS: GLUCOSAMINE PO SCH ×2 (08:11→21:45)
[2020-12-18] MEDS: CMCS: Pravastatin 20 mg TAB (NF) PO SCH (17:10)
[2020-12-19] MEDS ORDERED: Ondansetron 4 mg VIAL 2 MG/ML 2 ml VIAL IV PRN (00:52)
[2020-12-19] MEDS ORDERED: Ondansetron 4 mg VIAL 2 MG/ML 2 ml VIAL IV ONE (00:52)
[2020-12-19] MEDS: Ampicillin ADVAN 2 GM in NS 0.9% 100 ML 100 ML IVPB SCH ×4 (03:01→20:16)
[2020-12-19 03:50] LABS: Hematocrit 25 % (42-52); Hemoglobin 7.9 g/dL (14.0-18.0); Mean Corpuscular HGB Conc 32 g/dL (31-36); Mean Corpuscular Hemoglobin 27 pg (27-31); Mean Corpuscular Volume 87 fL (80-94); Mean Platelet Volume 7.4 fL (7.4-10.4); Platelet Count 154 10^3/uL (150-450); Red Blood Count 2.91 10^6 /uL (4.18-5.48); Red Cell Distribution Width 21 % (10-15); White Blood Count 7.3 10^3/uL (3.5-10.8)
[2020-12-19 04:05] LABS: Calcium 8.1 mg/dL (8.6-10.3); EGFR African American 60.2 (>60); EGFR Non-African American 49.7 (>60)
[2020-12-19 04:20] LABS: Potassium 5.2 mmol/L (3.5-5.0)
[2020-12-19 10:39] LABS: C Reactive Protein 7.99 mg/L (<8.01)
[2020-12-19 11:06] LABS: TSH Ultra Thyroid Stim Horm 2.8 mcIU/mL (0.34-5.60)
[2020-12-19] MEDS: GLUCOSAMINE PO SCH ×2 (14:20→20:17)
[2020-12-19] MEDS: Cholecalciferol (VIT D3) 1,000 unit TAB PO SCH ×2 (14:20→20:14)
[2020-12-19] MEDS: CMCS: Pravastatin 20 mg TAB (NF) PO SCH (20:14)
[2020-12-20] MEDS: Ampicillin ADVAN 2 GM in NS 0.9% 100 ML 100 ML IVPB SCH ×4 (03:08→20:17)
[2020-12-20 06:05] LABS: Hematocrit 22 % (42-52); Mean Corpuscular HGB Conc 32 g/dL (31-36); Mean Corpuscular Hemoglobin 27 pg (27-31); Mean Corpuscular Volume 86 fL (80-94); Mean Platelet Volume 8.1 fL (7.4-10.4); Platelet Count 140 10^3/uL (150-450); Red Blood Count 2.57 10^6 /uL (4.18-5.48); Red Cell Distribution Width 21 % (10-15); White Blood Count 9.3 10^3/uL (3.5-10.8)
[2020-12-20 06:21] LABS: Calcium 8.2 mg/dL (8.6-10.3); EGFR African American 53.4 (>60); EGFR Non-African American 44.1 (>60); Potassium 4.8 mmol/L (3.5-5.0)
[2020-12-20] MEDS ORDERED: NS 0.45% 1000 ml BAG 1,000 ML IV SCH (09:00)
[2020-12-20] MEDS: GLUCOSAMINE PO SCH ×2 (10:16→20:19)
[2020-12-20] MEDS: Cholecalciferol (VIT D3) 1,000 unit TAB PO SCH ×2 (10:16→20:17)
[2020-12-20 16:09] LABS: Hematocrit for Retic CNT 22 % (42-52)
[2020-12-20 16:22] LABS: Corrected Retic Count 1.8 % (0.5-1.5); Immature Retic Fraction 0.46
[2020-12-20] MEDS: CMCS: Pravastatin 20 mg TAB (NF) PO SCH (18:41)
[2020-12-20 19:51] LABS: Hematocrit 23 % (42-52); Hemoglobin 7.4 g/dL (14.0-18.0)
[2020-12-21] MEDS: Ampicillin ADVAN 2 GM in NS 0.9% 100 ML 100 ML IVPB SCH ×4 (02:49→20:18)
[2020-12-21 07:42] LABS: Hematocrit 23 % (42-52); Hemoglobin 7.4 g/dL (14.0-18.0); Mean Corpuscular HGB Conc 32 g/dL (31-36); Mean Corpuscular Hemoglobin 28 pg (27-31); Mean Corpuscular Volume 85 fL (80-94); Mean Platelet Volume 8.6 fL (7.4-10.4); Platelet Count 134 10^3/uL (150-450); Red Cell Distribution Width 21 % (10-15); White Blood Count 8.1 10^3/uL (3.5-10.8)
[2020-12-21 07:58] LABS: Calcium 8.3 mg/dL (8.6-10.3); EGFR African American 57.3 (>60); EGFR Non-African American 47.3 (>60); Potassium 4.9 mmol/L (3.5-5.0)
[2020-12-21] MEDS ORDERED: NS 0.45% 1000 ml BAG 1,000 ML IV SCH (09:00)
[2020-12-21] MEDS ORDERED: Midazolam 5 mg/5 ml VIAL 1 mg/ml 5 ml VIAL (5 mg) ONE (12:30)
[2020-12-21] MEDS ORDERED: fentaNYL 100 mcg/2 ml 50 MCG/ML VIAL ONE (12:30)
[2020-12-21] MEDS ORDERED: Naloxone 0.4 mg VIAL 0.4 mg/ml 1 ml VIAL ONE (12:30)
[2020-12-21] MEDS ORDERED: Flumazenil 0.5 mg/5 ml 0.1 MG/ML 5 ml VIAL ONE (12:30)
[2020-12-21] MEDS: Cholecalciferol (VIT D3) 1,000 unit TAB PO SCH ×2 (15:05→20:17)
[2020-12-21] MEDS: GLUCOSAMINE PO SCH ×2 (15:25→20:19)
[2020-12-21] MEDS: CMCS: Pravastatin 20 mg TAB (NF) PO SCH (17:32)
[2020-12-21] MEDS ORDERED: Senna TAB 8.6 mg TAB PO PRN (19:22)
[2020-12-21] MEDS ORDERED: Magnesium Hydroxide LIQ 30 ML UDC PO PRN (19:22)
[2020-12-22] MEDS: Ampicillin ADVAN 2 GM in NS 0.9% 100 ML 100 ML IVPB SCH ×4 (03:33→21:10)
[2020-12-22 06:23] LABS: Hematocrit 26 % (42-52); Hemoglobin 8.2 g/dL (14.0-18.0); Mean Corpuscular HGB Conc 32 g/dL (31-36); Mean Corpuscular Hemoglobin 28 pg (27-31); Mean Corpuscular Volume 86 fL (80-94); Mean Platelet Volume 8.7 fL (7.4-10.4); Platelet Count 134 10^3/uL (150-450); Red Blood Count 2.97 10^6 /uL (4.18-5.48); Red Cell Distribution Width 20 % (10-15); White Blood Count 6.3 10^3/uL (3.5-10.8)
[2020-12-22 07:43] LABS: Potassium 4.7 mmol/L (3.5-5.0)
[2020-12-22 07:49] LABS: EGFR African American 57.8 (>60); EGFR Non-African American 47.7 (>60)
[2020-12-22] MEDS: Cholecalciferol (VIT D3) 1,000 unit TAB PO SCH ×2 (08:18→21:10)
[2020-12-22] MEDS: GLUCOSAMINE PO SCH ×2 (08:23→21:11)
[2020-12-22] MEDS ORDERED: Furosemide 40 mg/4 ml IV VIAL IV ONE (17:02)
[2020-12-22] MEDS: CMCS: Pravastatin 20 mg TAB (NF) PO SCH (17:09)
[2020-12-23] MEDS: Ampicillin ADVAN 2 GM in NS 0.9% 100 ML 100 ML IVPB SCH ×2 (02:52→09:54)
[2020-12-23 06:37] LABS: Hematocrit 27 % (42-52); Hemoglobin 8.7 g/dL (14.0-18.0); Mean Corpuscular HGB Conc 32 g/dL (31-36); Mean Corpuscular Hemoglobin 28 pg (27-31); Mean Corpuscular Volume 85 fL (80-94); Mean Platelet Volume 8.6 fL (7.4-10.4); Platelet Count 143 10^3/uL (150-450); Red Blood Count 3.14 10^6 /uL (4.18-5.48); Red Cell Distribution Width 20 % (10-15); White Blood Count 5.2 10^3/uL (3.5-10.8)
[2020-12-23 06:54] LABS: Calcium 8.3 mg/dL (8.6-10.3); Potassium 4.3 mmol/L (3.5-5.0)
[2020-12-23 07:00] LABS: EGFR African American 59.2 (>60); EGFR Non-African American 48.9 (>60)
[2020-12-23] MEDS ORDERED: Furosemide 40 mg/4 ml IV VIAL IV ONE (07:00)
[2020-12-23] MEDS: Cholecalciferol (VIT D3) 1,000 unit TAB PO SCH (10:05)
[2020-12-23] MEDS: GLUCOSAMINE PO SCH (10:20)
[2020-12-23 11:40] VITALS: BP 107/51
== END 2020-12-23 13:45 | disposition home health service (06) | DRG 812 ==
LOC: ED 18:24 → MEDTELE 22:15
PROVIDERS: ADMIT Student in an Organized Health Care Education/Training Program; ATTEND Internal Medicine

== ENCOUNTER 2020-12-31 15:51 | Observation (INO) ==
[2020-12-31] MEDS ORDERED: Magnesium Hydroxide LIQ 30 ML UDC PO PRN (15:59)
[2020-12-31] MEDS ORDERED: Senna TAB 8.6 mg TAB PO PRN (15:59)
[2020-12-31] MEDS ORDERED: diPHENhydraMINE 25 mg TAB PO PRN (15:59)
[2020-12-31 17:08] LABS: EGFR African American 48.2 (>60); EGFR Non-African American 39.9 (>60); Potassium 4.9 mmol/L (3.5-5.0)
[2020-12-31] MEDS: Cholecalciferol (VIT D3) 1,000 unit TAB PO SCH (22:17)
[2021-01-01] MEDS: Cholecalciferol (VIT D3) 1,000 unit TAB PO SCH ×2 (09:04→22:19)
[2021-01-02 03:36] LABS: ABS Basophils 0.1 10^3/ul (0-0.2); ABS Eosinophils 0.4 10^3/ul (0-0.6); ABS Lymphocytes 1.9 10^3/ul (1.0-4.8); ABS Monocytes 0.6 10^3/ul (0-0.8); ABS Neutrophils 2.5 10^3/ul (1.5-7.7); Eosinophil % 8.1 %; Hematocrit 24 % (42-52); Hemoglobin 7.7 g/dL (14.0-18.0); Lymphocyte % 34.2 %; Mean Corpuscular HGB Conc 32 g/dL (31-36); Mean Corpuscular Hemoglobin 28 pg (27-31); Mean Corpuscular Volume 85 fL (80-94); Mean Platelet Volume 8.5 fL (7.4-10.4); Nucleated Red Blood Cells % 0.1; Platelet Count 241 10^3/uL (150-450); Red Blood Count 2.79 10^6 /uL (4.18-5.48); Red Cell Distribution Width 20 % (10-15); White Blood Count 5.4 10^3/uL (3.5-10.8)
[2021-01-02] MEDS: Cholecalciferol (VIT D3) 1,000 unit TAB PO SCH ×2 (08:50→23:46)
[2021-01-02] MEDS ORDERED: Magnesium CITRATE LIQ 300 ML BTL PO ONE (09:13)
[2021-01-03] MEDS: Cholecalciferol (VIT D3) 1,000 unit TAB PO SCH ×2 (09:18→20:51)
[2021-01-03 09:40] LABS: Hematocrit 31 % (42-52)
[2021-01-03] MEDS ORDERED: PEG 3000 GI LAVAGE 1 GALLON PO ONE (17:15)
[2021-01-04 08:01] VITALS: BP 125/77
[2021-01-04] MEDS: Cholecalciferol (VIT D3) 1,000 unit TAB PO SCH (09:18)
[2021-01-04 09:42] LABS: Hematocrit 31 % (42-52); Hemoglobin 9.9 g/dL (14.0-18.0)
== END 2021-01-04 11:58 | disposition home or self-care (01) ==
LOC: SSU 15:51 → INTOOBSV 15:51
PROVIDERS: ADMIT Hospitalist; ATTEND Internal Medicine

== ENCOUNTER 2023-07-08 12:22 | Inpatient (IN) ==
[~2023-07-08 12:22] MED LIST: Buffered Lidocaine 1% SYRIN 1 ml INTRADERM ONE; Famotidine IV 10 MG/ML 2 ml VIAL (20 mg) IV ONE; Lactated Ringers 1000 ml BAG 1,000 ML IV SCH; NS 0.9% 1000 ml BAG 1,000 ML IV SCH; Ondansetron 4 mg VIAL 2 MG/ML 2 ml VIAL IV PRN
[2023-07-08] MEDS ORDERED: Famotidine IV 10 MG/ML 2 ml VIAL (20 mg) ONE (12:53)
[2023-07-08] MEDS ORDERED: Ampicillin ADVAN 2 GM in NS 0.9% 100 ML 100 ML IVPB ONE (13:00)
[2023-07-08] MEDS ORDERED: Gentamicin ADULT 300 MG in NS 0.9% 100 ml BAG 100 ML IVPB ONE (13:00)
[2023-07-08 13:05] LABS: Rapid COVID-19 Molecular Undetected (Undetected)
[2023-07-08] MEDS ORDERED: Propofol 10 MG/ML 20 ML BTL ONE (13:31)
[2023-07-08] MEDS ORDERED: Lidocaine 2% PF 5 ML VIAL ONE (13:31)
[2023-07-08] MEDS ORDERED: Dexamethasone IV 4 MG/ML VIAL 1 ml VIAL ONE (13:31)
[2023-07-08] MEDS ORDERED: Ondansetron 4 mg VIAL 2 MG/ML 2 ml VIAL ONE (13:31)
[2023-07-08] MEDS ORDERED: fentaNYL 100 mcg/2 ml 50 MCG/ML VIAL ONE ×2 (13:33→14:26)
[2023-07-08] MEDS ORDERED: Furosemide 20 mg/2 ml IV VIAL ONE (14:42)
[2023-07-08] MEDS ORDERED: Lactated Ringers 1000 ml BAG 1,000 ML IV ONE (17:25)
[2023-07-08] MEDS: Neomycin/Polym/Bacit TOP OINT 15 GM TOPICAL SCH ×3 (17:39→21:37)
[2023-07-08] MEDS ORDERED: Heparin 5000 UNITS/ML 1 mL VIAL SUBCUT ONE (21:00)
[2023-07-08] MEDS: Magnesium Hydroxide LIQ 30 ML UDC PO SCH (21:37)
[2023-07-09 03:13] LABS: Hematocrit 34.6 % (38-53); Hemoglobin 11.4 g/dL (13.2-16.3); Mean Corpuscular Hemoglobin 27.8 pg (27-33); Mean Corpuscular Hgb Conc 32.9 g/dL (31-36); Mean Corpuscular Volume 84.5 fL (80-97); Platelet Count 137 10^3/uL (150-450); Red Cell Distribution Width 18.8 % (12-17); White Blood Count 13.6 10^3/uL (3.6-10.2)
[2023-07-09 03:31] LABS: Calcium 8.5 mg/dL (8.6-10.3); Creatinine, Serum 1.82 mg/dL (0.67-1.17); Magnesium 2.3 mg/dL (1.9-2.7); Potassium 4.2 mmol/L (3.5-5.0); eGFR CKD-EPI 36.2 (>60)
[2023-07-09] MEDS: LACTATED RINGERS 1000 ML BAG IV SCH ×2 (05:21→21:38)
[2023-07-09] MEDS ORDERED: Propofol 10 MG/ML 20 ML BTL ONE ×2 (07:18→07:48)
[2023-07-09] MEDS ORDERED: cefTRIAXone 1 gm/50 mL D5W 1 GM/50 ML BAG IV ONE (07:18)
[2023-07-09] MEDS ORDERED: Lidocaine 2% PF 5 ML VIAL ONE (07:19)
[2023-07-09] MEDS ORDERED: fentaNYL 100 mcg/2 ml 50 MCG/ML VIAL ONE (07:20)
[2023-07-09] MEDS ORDERED: Ondansetron 4 mg VIAL 2 MG/ML 2 ml VIAL ONE (08:00)
[2023-07-09] MEDS ORDERED: Dexamethasone IV 4 MG/ML VIAL 1 ml VIAL ONE (08:00)
[2023-07-09] MEDS ORDERED: Phenylephrine 40 mcg/mL 10mL (400mcg) SYRINGE ONE (08:07)
[2023-07-09] MEDS ORDERED: Acetaminophen IV 1 GM/100ML 1,000 MG/100 ML BAG IV ONE (08:51)
[2023-07-09 09:47] LABS: Hematocrit 31.5 % (38-53); Hemoglobin 10.3 g/dL (13.2-16.3); Mean Corpuscular Hemoglobin 27.7 pg (27-33); Mean Corpuscular Hgb Conc 32.6 g/dL (31-36); Mean Platelet Volume 9.3 fL (7.5-11.2); Platelet Count 134 10^3/uL (150-450); Red Blood Count 3.71 10^6/uL (4.06-5.63); Red Cell Distribution Width 19.1 % (12-17); White Blood Count 15.5 10^3/uL (3.6-10.2)
[2023-07-09 10:08] LABS: Calcium 8.4 mg/dL (8.6-10.3); Creatinine, Serum 1.85 mg/dL (0.67-1.17); Potassium 4.4 mmol/L (3.5-5.0); eGFR CKD-EPI 35.5 (>60)
[2023-07-09] MEDS: Neomycin/Polym/Bacit TOP OINT 15 GM TOPICAL SCH ×4 (13:08→21:56)
[2023-07-09 13:58] LABS: Activated Partial Thrombo Time 34.1 seconds (26.0-38.0); INR 1.36 (0.83-1.13)
[2023-07-09] MEDS: Magnesium Hydroxide LIQ 30 ML UDC PO SCH ×2 (15:19→21:41)
[2023-07-09 15:31] LABS: Hemoglobin 9.2 g/dL (13.2-16.3)
[2023-07-09] MEDS: Senna TAB 8.6 mg TAB PO PRN (21:37)
[2023-07-10 06:17] LABS: Hematocrit 23.6 % (38-53); Hemoglobin 7.9 g/dL (13.2-16.3); Mean Corpuscular Hemoglobin 28.3 pg (27-33); Mean Corpuscular Hgb Conc 33.3 g/dL (31-36); Mean Corpuscular Volume 84.9 fL (80-97); Mean Platelet Volume 9.1 fL (7.5-11.2); Platelet Count 118 10^3/uL (150-450); Red Blood Count 2.78 10^6/uL (4.06-5.63)
[2023-07-10 06:37] LABS: Calcium 8.1 mg/dL (8.6-10.3); Creatinine, Serum 2.03 mg/dL (0.67-1.17); Potassium 4.6 mmol/L (3.5-5.0); eGFR CKD-EPI 31.7 (>60)
[2023-07-10] MEDS: LACTATED RINGERS 1000 ML BAG IV SCH (08:03)
[2023-07-10 09:13] LABS: % Iron Saturation 8 % (15-55); .Transferrin 181 mg/dL (203-362); Iron < 20 ug/dL (50-212); Total Iron Binding Capacity 253 mcg/dL (250-450); Unsaturated Iron Binding 233 ug/dL
[2023-07-10] MEDS: Neomycin/Polym/Bacit TOP OINT 15 GM TOPICAL SCH ×4 (09:24→21:43)
[2023-07-10] MEDS: Magnesium Hydroxide LIQ 30 ML UDC PO SCH ×2 (09:24→21:45)
[2023-07-10 09:34] LABS: Ferritin 70.4 ng/mL (24-336)
[2023-07-10 20:47] LABS: Hematocrit 25.7 % (38-53); Hemoglobin 8.5 g/dL (13.2-16.3)
[2023-07-10] MEDS: Senna TAB 8.6 mg TAB PO PRN (21:41)
[2023-07-11 06:01] LABS: Hematocrit 24.9 % (38-53); Hemoglobin 8.3 g/dL (13.2-16.3); Mean Corpuscular Hemoglobin 28.6 pg (27-33); Mean Corpuscular Hgb Conc 33.4 g/dL (31-36); Mean Corpuscular Volume 85.7 fL (80-97); Mean Platelet Volume 9.2 fL (7.5-11.2); Platelet Count 102 10^3/uL (150-450); Red Cell Distribution Width 19.2 % (12-17); White Blood Count 9.2 10^3/uL (3.6-10.2)
[2023-07-11 06:22] LABS: Calcium 8.2 mg/dL (8.6-10.3); Creatinine, Serum 2.04 mg/dL (0.67-1.17); Potassium 4.7 mmol/L (3.5-5.0); eGFR CKD-EPI 31.5 (>60)
[2023-07-11] MEDS: Senna TAB 8.6 mg TAB PO SCH (09:50)
[2023-07-11] MEDS: Magnesium Hydroxide LIQ 30 ML UDC PO SCH ×3 (09:51→21:26)
[2023-07-11] MEDS: Neomycin/Polym/Bacit TOP OINT 15 GM TOPICAL SCH ×4 (09:51→21:32)
[2023-07-12 06:17] LABS: Hematocrit 24.9 % (38-53); Hemoglobin 8.4 g/dL (13.2-16.3); Mean Corpuscular Hemoglobin 28.9 pg (27-33); Mean Corpuscular Hgb Conc 33.7 g/dL (31-36); Mean Corpuscular Volume 85.9 fL (80-97); Mean Platelet Volume 9.4 fL (7.5-11.2); Platelet Count 125 10^3/uL (150-450); Red Cell Distribution Width 19.5 % (12-17); White Blood Count 9.8 10^3/uL (3.6-10.2)
[2023-07-12 06:38] LABS: Calcium 8.7 mg/dL (8.6-10.3); Creatinine, Serum 1.82 mg/dL (0.67-1.17); Potassium 4.4 mmol/L (3.5-5.0); eGFR CKD-EPI 36.2 (>60)
[2023-07-12] MEDS: Senna TAB 8.6 mg TAB PO SCH (09:22)
[2023-07-12] MEDS: Neomycin/Polym/Bacit TOP OINT 15 GM TOPICAL SCH (09:25)
[2023-07-12] MEDS: Magnesium Hydroxide LIQ 30 ML UDC PO SCH (09:25)
[2023-07-12 10:06] VITALS: BP 100/67
== END 2023-07-12 13:49 | disposition home or self-care (01) | DRG 713 ==
LOC: SSU 12:22 → OR 12:22
PROVIDERS: ADMIT Urology; ATTEND Urology

== ENCOUNTER 2023-08-31 12:14 | Inpatient (IN) ==
[2023-08-31 13:31] LABS: C Reactive Protein 5.58 mg/L (<8.01); Calcium 9.4 mg/dL (8.6-10.3); Creatinine, Serum 1.51 mg/dL (0.67-1.17); Magnesium 1.9 mg/dL (1.9-2.7); Potassium 4.4 mmol/L (3.5-5.0); eGFR CKD-EPI 45.3 (>60)
[2023-08-31] MEDS: Ondansetron 4 mg VIAL 2 MG/ML 2 ml VIAL IV ONE (13:32)
[2023-08-31 14:04] LABS: Hematocrit 34.5 % (38-53); Hemoglobin 10.9 g/dL (13.2-16.3); Mean Corpuscular Hgb Conc 31.5 g/dL (31-36); Mean Corpuscular Volume 79.1 fL (80-97); Mean Platelet Volume 8.7 fL (7.5-11.2); Platelet Count 261 10^3/uL (150-450); Red Blood Count 4.36 10^6/uL (4.06-5.63); Red Cell Distribution Width 19.1 % (12-17); White Blood Count 9.2 10^3/uL (3.6-10.2)
[2023-08-31 14:18] LABS: Urine Appearance Cloudy; Urine Bilirubin Negative (Negative); Urine Blood 1+ (Negative); Urine Color Yellow; Urine Glucose Negative (Negative); Urine Ketones Negative (Negative); Urine Nitrite Negative (Negative); Urine Protein 3+(>=500 mg/dL) (Negative); Urine Specific Gravity 1.012 (1.002-1.030); Urine Urobilinogen Negative (Negative)
[2023-08-31] MEDS: HYDROmorphone 1 MG/1 ML SYRINGE IV ONE ×2 (14:25→22:24)
[2023-08-31 14:37] LABS: Urine Bacteria Absent (Absent); Urine Red Blood Cell 3+(>10/hpf) (Absent); Urine Squamous Epithelial Cell Present (Absent); Urine White Blood Cell 3+(>20/hpf) (Absent)
[2023-08-31 14:39] LABS: High Sensitivity Troponin 1 Hr 160 pg/mL (<20)
[2023-08-31 14:42] LABS: ABS Nucleated RBC 0.01 10^3/ul; Acanthocytes 1+; Nucleated Red Blood Cells % 0.1 %/100WBC (0.0-0.8)
[2023-08-31] MEDS: Iodixanol (CONTRAST) 320 MG/ML 100 ML SDV IV ONE (16:06)
[2023-08-31] MEDS: Furosemide 40 mg/4 ml IV VIAL IV ONE (19:10)
[2023-09-01 02:45] LABS: Body Fluid Total Nucleated 493 /mcL
[2023-09-01 03:50] LABS: Body Fluid Appearance Clear; Body Fluid Color Yellow; Body Fluid Mono 41 %; Body Fluid Other Cells 16; Body Fluid Source Pleural Fluid; Body Fluid Total Cells Counted 200
[2023-09-01 06:30] LABS: Activated Partial Thrombo Time 33.3 seconds (26.0-38.0); INR 1.93 (0.83-1.13)
[2023-09-01 06:36] LABS: Calcium 9.7 mg/dL (8.6-10.3); Creatinine, Serum 1.66 mg/dL (0.67-1.17); Potassium 4.7 mmol/L (3.5-5.0); eGFR CKD-EPI 40.4 (>60)
[2023-09-01 06:51] LABS: Mean Corpuscular Hemoglobin 24.8 pg (27-33); Mean Corpuscular Hgb Conc 31.5 g/dL (31-36); Mean Corpuscular Volume 78.8 fL (80-97); Mean Platelet Volume 8.6 fL (7.5-11.2); Platelet Count 258 10^3/uL (150-450); Red Blood Count 4.44 10^6/uL (4.06-5.63)
[2023-09-01 07:42] LABS: ABS Nucleated RBC 0.01 10^3/ul; Nucleated Red Blood Cells % 0.1 %/100WBC (0.0-0.8); RBC Morphology Normal (Normal)
[2023-09-01] MEDS: Heparin 5000 UNITS/ML 1 mL VIAL SUBCUT SCH (08:23)
[2023-09-01] MEDS: Furosemide 40 mg/4 ml IV VIAL IV SLOW PU SCH (08:26)
[2023-09-01] MEDS: Magnesium Sulfate IV 1GM/100ML 1 GM/100 ML BAG IV ONE (08:51)
[2023-09-01] MEDS: HYDROmorphone 1 MG/1 ML SYRINGE IV SLOW PU PRN (09:33)
[2023-09-01 14:08] LABS: Immature Retic Fraction 0.43
[2023-09-01 14:11] LABS: Corrected Retic Count 1.9 % (0.5-1.5); Hematocrit for Retic CNT 35.6 % (38-53)
[2023-09-01 14:12] LABS: RBC Retic Count 4.49 10^6/ul (4.06-5.63)
[2023-09-01 17:09] LABS: % Iron Saturation 5 % (15-55); .Transferrin 265 mg/dL (203-362); Iron < 20 ug/dL (50-212); Total Iron Binding Capacity 371 mcg/dL (250-450); Unsaturated Iron Binding 351 ug/dL
[2023-09-01] MEDS: Ferric Gluconate IV 250 MG in NS 0.9% 250 ml 200 ML IVPB ONE (17:36)
[2023-09-01] MEDS ORDERED: Pravastatin 40 mg TAB (NF) PO SCH (21:00)
[2023-09-01] MEDS: Morphine 2 MG/ML SYRINGE IV PRN (21:34)
[2023-09-01] MEDS: HYDROmorphone 0.5 MG/0.5 ML SYRINGE IV SLOW PU PRN (23:59)
[2023-09-02] MEDS: Ondansetron 4 mg VIAL 2 MG/ML 2 ml VIAL IV PRN (05:59)
[2023-09-02 07:04] LABS: Calcium 8.6 mg/dL (8.6-10.3); Magnesium 2.1 mg/dL (1.9-2.7); Potassium 4.5 mmol/L (3.5-5.0); eGFR CKD-EPI 32.3 (>60)
[2023-09-02] MEDS: Polyethylene Glycol 3350 17 GM PACKET PO SCH (08:19)
[2023-09-02] MEDS: Lactulose 30 ml UDC PO SCH (08:19)
[2023-09-02] MEDS ORDERED: Calcium Carb (TUMS) 500 mg CHEW TAB PO PRN (10:24)
[2023-09-02] MEDS: Ferric Gluconate IV 250 MG in NS 0.9% 250 ml 200 ML IVPB SCH (14:33)
[2023-09-02 17:39] LABS: Hematocrit 37.2 % (38-53); Hemoglobin 11.6 g/dL (13.2-16.3); Mean Corpuscular Hemoglobin 24.7 pg (27-33); Mean Corpuscular Hgb Conc 31.1 g/dL (31-36); Mean Corpuscular Volume 79.3 fL (80-97); Mean Platelet Volume 8.8 fL (7.5-11.2); Platelet Count 225 10^3/uL (150-450); Red Blood Count 4.69 10^6/uL (4.06-5.63); White Blood Count 8.3 10^3/uL (3.6-10.2)
[2023-09-02 17:40] LABS: ABS Lymphocytes 2.3 10^3/ul (1.0-4.8); ABS Monocytes 0.3 10^3/ul (0.0-1.1); ABS Neutrophils 5.6 10^3/ul (1.5-7.6); Acanthocytes 1+; Anisocytosis 1+; Polychromasia 1+; Target Cells 1+
[2023-09-02 17:41] LABS: ABS Eosinophils 0.1 10^3/ul (0.0-0.5)
[2023-09-02] MEDS: Senna TAB 8.6 mg TAB PO SCH (21:25)
[2023-09-02] MEDS: HYDROmorphone 1 MG/1 ML SYRINGE IV SLOW PU PRN (21:42)
[2023-09-03 06:42] LABS: Calcium 8.3 mg/dL (8.6-10.3); Creatinine, Serum 2.46 mg/dL (0.67-1.17); Potassium 3.9 mmol/L (3.5-5.0); eGFR CKD-EPI 25.2 (>60)
[2023-09-03 12:58] LABS: Albumin, BF 1.1 g/dL; Fluid Type, Albumin Pleural Fluid; Fluid Type, Protein, Total Pleural Fluid; Glucose, BF 119 mg/dL; Total Protein, BF 1.3 g/dL
[2023-09-03 14:14] LABS: Lactate Dehydrogenase, BF 50 U/L
[2023-09-04 08:28] LABS: Calcium 8.6 mg/dL (8.6-10.3); Creatinine, Serum 2.51 mg/dL (0.67-1.17); Potassium 4.2 mmol/L (3.5-5.0); eGFR CKD-EPI 24.6 (>60)
[2023-09-04 09:54] LABS: Fluid Type: PLEURAL
[2023-09-04] MEDS ORDERED: HYDROmorphone 0.5 MG/0.5 ML SYRINGE IV SLOW PU PRN (12:58)
[2023-09-04 14:06] VITALS: BP 108/56
== END 2023-09-04 16:28 | DRG 291 ==
LOC: ED 12:14 → SUATTDRO 09-01 04:05 → EDHOLD 09-01 04:05 → MEDTELE 09-01 13:03
PROVIDERS: ADMIT Internal Medicine; ATTEND Internal Medicine

== ENCOUNTER 2023-09-04 10:47 | Inpatient (IN) ==
[2023-09-04] MEDS ORDERED: Senna TAB 8.6 mg TAB PO PRN (18:31)
[2023-09-04] MEDS: D5W 1/2 NS 1000 ml BAG 1,000 ML IV SCH (22:12)
[2023-09-04] MEDS: Senna TAB 8.6 mg TAB PO SCH (22:37)
[2023-09-05 06:46] LABS: Creatinine, Serum 2.49 mg/dL (0.67-1.17); Potassium 3.9 mmol/L (3.5-5.0); eGFR CKD-EPI 24.8 (>60)
[2023-09-05] MEDS: Polyethylene Glycol 3350 17 GM PACKET PO SCH (12:20)
[2023-09-06 06:43] LABS: Hematocrit 30.3 % (38-53); Hemoglobin 9.6 g/dL (13.2-16.3); Mean Corpuscular Hemoglobin 25.2 pg (27-33); Mean Corpuscular Hgb Conc 31.8 g/dL (31-36); Mean Corpuscular Volume 79.3 fL (80-97); Mean Platelet Volume 8.7 fL (7.5-11.2); Platelet Count 185 10^3/uL (150-450); Red Blood Count 3.82 10^6/uL (4.06-5.63); Red Cell Distribution Width 19.5 % (12-17); White Blood Count 6.3 10^3/uL (3.6-10.2)
[2023-09-06 06:59] LABS: Albumin 3.3 g/dL (3.2-5.2); Albumin/Globulin Ratio 2.8 (1-3); Calcium 8.1 mg/dL (8.6-10.3); Creatinine, Serum 2.35 mg/dL (0.67-1.17); Globulin 1.2 g/dL (2-4); Potassium 4.5 mmol/L (3.5-5.0); Total Bilirubin 0.7 mg/dL (0.2-1.0); Total Protein 4.5 g/dL (6.4-8.9); eGFR CKD-EPI 26.6 (>60)
[2023-09-06 07:11] LABS: ABS Basophils 0.1 10^3/uL (0.0-0.1); ABS Eosinophils 0.1 10^3/uL (0.0-0.5); ABS Lymphocytes 1.7 10^3/uL (1.0-4.8); ABS Monocytes 0.5 10^3/uL (0.0-1.1); ABS Nucleated RBC 0.07 10^3/ul; Anisocytosis 2+; Eosinophil % 2.1 %; Lymphocyte % 26.3 %; Polychromasia 1+
[2023-09-07 07:40] LABS: Albumin 3.5 g/dL (3.2-5.2); Albumin/Globulin Ratio 2.2 (1-3); Calcium 8.2 mg/dL (8.6-10.3); Creatinine, Serum 2.18 mg/dL (0.67-1.17); Globulin 1.6 g/dL (2-4); Potassium 4.2 mmol/L (3.5-5.0); Total Bilirubin 0.8 mg/dL (0.2-1.0); Total Protein 5.1 g/dL (6.4-8.9); eGFR CKD-EPI 29.1 (>60)
[2023-09-07 08:07] LABS: ABS Nucleated RBC 0.02 10^3/ul; Acanthocytes 1+; Anisocytosis 1+; Hypochromasia 1+; Nucleated Red Blood Cells % 0.2 %/100WBC (0.0-0.8)
[2023-09-07 08:08] LABS: Hemoglobin 10.2 g/dL (13.2-16.3); Mean Corpuscular Hemoglobin 25.4 pg (27-33); Mean Corpuscular Hgb Conc 31.8 g/dL (31-36); Mean Platelet Volume 8.8 fL (7.5-11.2); Platelet Count 168 10^3/uL (150-450); Red Blood Count 4.01 10^6/uL (4.06-5.63); Red Cell Distribution Width 19.7 % (12-17); White Blood Count 6.8 10^3/uL (3.6-10.2)
[2023-09-08 13:58] LABS: Urine Appearance Clear; Urine Bilirubin Negative (Negative); Urine Blood Negative (Negative); Urine Color Light-Yellow; Urine Glucose Negative (Negative); Urine Ketones Negative (Negative); Urine Nitrite Negative (Negative); Urine Protein Negative (Negative); Urine Specific Gravity 1.007 (1.002-1.030); Urine Urobilinogen Negative (Negative)
[2023-09-08 14:06] LABS: Urine Bacteria Absent /HPF (Absent); Urine Red Blood Cell Trace(0-2/hpf) /HPF (0-Trace); Urine White Blood Cell 3+(>20/hpf) /HPF (0-Trace)
[2023-09-09 06:36] LABS: ABS Basophils 0.1 10^3/uL (0.0-0.1); ABS Eosinophils 0.2 10^3/uL (0.0-0.5); ABS Lymphocytes 2.6 10^3/uL (1.0-4.8); ABS Monocytes 0.8 10^3/uL (0.0-1.1); ABS Neutrophils 3.5 10^3/uL (1.5-7.6); ABS Nucleated RBC 0.02 10^3/ul; Eosinophil % 2.7 %; Hematocrit 38.2 % (38-53); Lymphocyte % 36.1 %; Mean Corpuscular Hemoglobin 25.2 pg (27-33); Mean Corpuscular Hgb Conc 31.5 g/dL (31-36); Mean Platelet Volume 9.1 fL (7.5-11.2); Nucleated Red Blood Cells % 0.3 %/100WBC (0.0-0.8); Platelet Count 175 10^3/uL (150-450); Red Blood Count 4.77 10^6/uL (4.06-5.63); Red Cell Distribution Width 20.6 % (12-17); White Blood Count 7.2 10^3/uL (3.6-10.2)
[2023-09-09 06:54] LABS: Calcium 8.9 mg/dL (8.6-10.3); Creatinine, Serum 2.1 mg/dL (0.67-1.17); Potassium 4.5 mmol/L (3.5-5.0); Total Bilirubin 0.7 mg/dL (0.2-1.0); eGFR CKD-EPI 30.5 (>60)
[2023-09-10 06:24] VITALS: BP 160/77
[2023-09-10] MEDS: Magnesium Hydroxide LIQ 30 ML UDC PO PRN (09:45)
== END 2023-09-10 16:05 | disposition home or self-care (01) | DRG 292 ==
LOC: PMRU 16:29
PROVIDERS: ADMIT Physical Medicine & Rehabilitation; ATTEND Physical Medicine & Rehabilitation

== ENCOUNTER 2023-10-07 23:27 | Inpatient (IN) ==
[2023-10-08 01:09] LABS: Albumin 3.6 g/dL (3.2-5.2); Albumin/Globulin Ratio 2.1 (1-3); Calcium 9.1 mg/dL (8.6-10.3); Creatinine, Serum 1.41 mg/dL (0.67-1.17); Globulin 1.7 g/dL (2-4); Potassium 4.8 mmol/L (3.5-5.0); Total Bilirubin 0.5 mg/dL (0.2-1.0); Total Protein 5.3 g/dL (6.4-8.9); eGFR CKD-EPI 49.1 (>60)
[2023-10-08 01:21] LABS: Urine Appearance Clear; Urine Bilirubin Negative (Negative); Urine Blood Negative (Negative); Urine Color Light-Yellow; Urine Glucose Negative (Negative); Urine Ketones Negative (Negative); Urine Nitrite Negative (Negative); Urine Protein 1+ (>=30 mg/dL) (Negative); Urine Specific Gravity 1.011 (1.002-1.030); Urine Urobilinogen Negative (Negative); Urine pH 6.5 (5.0-8.0)
[2023-10-08 01:34] LABS: Urine Bacteria 1+ /HPF (Absent); Urine Red Blood Cell 2+(6-10/hpf) /HPF (0-Trace); Urine White Blood Cell 3+(>20/hpf) /HPF (0-Trace)
[2023-10-08 02:18] LABS: ABS Basophils 0.1 10^3/uL (0.0-0.1); ABS Eosinophils 0.2 10^3/uL (0.0-0.5); ABS Lymphocytes 2.8 10^3/uL (1.0-4.8); ABS Monocytes 0.6 10^3/uL (0.0-1.1); ABS Neutrophils 5.1 10^3/uL (1.5-7.6); ABS Nucleated RBC 0.02 10^3/ul; Eosinophil % 1.7 %; Hematocrit 34.6 % (38-53); Hemoglobin 11.4 g/dL (13.2-16.3); Lymphocyte % 32.2 %; Mean Corpuscular Hemoglobin 26.4 pg (27-33); Mean Corpuscular Hgb Conc 32.9 g/dL (31-36); Mean Corpuscular Volume 80.3 fL (80-97); Mean Platelet Volume 8.3 fL (7.5-11.2); Nucleated Red Blood Cells % 0.2 %/100WBC (0.0-0.8); Platelet Count 242 10^3/uL (150-450); Red Blood Count 4.31 10^6/uL (4.06-5.63); Red Cell Distribution Width 24.5 % (12-17); White Blood Count 8.8 10^3/uL (3.6-10.2)
[2023-10-08 02:19] LABS: Anisocytosis 3+; Macrocytosis 1+; Microcytosis 1+
[2023-10-08 02:21] LABS: ABS Lymphocytes 1.9 10^3/ul (1.0-4.8)
[2023-10-08] MEDS: cefTRIAXone 1 gm/50 mL D5W 1 GM/50 ML BAG IV ONE (07:40)
[2023-10-09] MEDS: Ondansetron ODT 4 mg TAB 4 MG TAB SL STA (00:25)
[2023-10-09] MEDS: PIROXICAM 10 MG PO SCH (09:36)
[2023-10-10] MEDS: Morphine ER 15 mg TAB ** extended release PO SCH (16:07)
[2023-10-10] MEDS: Morphine ORAL.SOLN 10 mg 2 mg/ml UDC 5 ml (10 mg) PO PRN (23:06)
[2023-10-11] MEDS: Morphine ER 30 mg TAB ** extended release PO SCH (20:49)
[2023-10-11] MEDS ORDERED: Senna TAB 8.6 mg TAB PO PRN (21:58)
[2023-10-12] MEDS: Cholecalciferol (VIT D3) 1,000 unit TAB PO SCH (08:58)
[2023-10-14 15:34] LABS: Rapid COVID-19 Molecular Undetected (Undetected)
[2023-10-15 07:22] VITALS: BP 155/86
== END 2023-10-15 11:00 | DRG 690 ==
LOC: ED 23:27 → SUATTDRO 10-11 15:20 → EDHOLD 10-11 15:20 → MED 10-11 16:29
PROVIDERS: ADMIT Hospitalist; ATTEND Hospitalist